=== PATIENT | male | born 1970 | race Caucasian/White ===

== ENCOUNTER 2021-03-05 12:06 | Outpatient (CLI) | payer BC, SELFPAY ==
[2021-03-05 15:19] LABS: Alanine Aminotransferase 35 U/L (4-50); Albumin Level 4.1 g/dL (3.5-5.1); Alkaline Phosphatase 110 U/L (38-126); Anion Gap 10 mmol/L (8-16); Aspartate Amino Transferase 38 U/L (17-59); Bilirubin,Total 0.6 mg/dL (0.2-1.3); Blood Urea Nitrogen 16 mg/dL (9-20); Calcium 9.4 mg/dL (8.4-10.2); Carbon Dioxide 22 mmol/L (22-30); Chloride 106 mmol/L (98-107); Cholesterol 123 mg/dL (0-200); Creatine Kinase 72 U/L (55-170); Estimated Glomerular Filt Rate > 60; Glucose 104 mg/dL (65-110); HDL Direct 37 mg/dL; Potassium 3.8 mmol/L (3.4-5.0); Sodium 138 mmol/L (137-145); Triglycerides 98 mg/dL (<150)
[2021-03-05 15:30] LABS: LDL Cholesterol Direct 61 mg/dL
== END 2021-03-05 12:07 | disposition home or self-care (01) ==
LOC: ANHLAB 12:13
PROVIDERS: PCP Internal Medicine; Visit Provider Internal Medicine
DX: E78.2 Mixed hyperlipidemia (principal)
CPT/HCPCS: 36415; 80053; 80061; 82550

== ENCOUNTER 2021-10-04 15:33 | Outpatient (CLI) | payer BC, SELFPAY ==
[2021-10-04 16:19] LABS: Hematocrit 40.3 % (42.0-52.0); Hemoglobin 13.3 g/dL (14.0-18.0); Mean Corpuscular Hemoglobin 28.9 pg (26-34); Mean Corpuscular Volume 87.4 fl (80-100); Mean Platelet Volume 9.5 fl (7.4-10.4); Platelet Count Result 315 k/mm3 (150-375); Red Blood Count 4.61 M/mm3 (4.6-6.20); White Blood Count 9.3 K/mm3 (4.5-10.0)
[2021-10-04 16:26] LABS: Prothrombin Time 12.9 Seconds (11.1-14.7)
[2021-10-04 16:27] LABS: Partial Thromboplastin Time 24.7 SECONDS (22.3-36.8)
[2021-10-04 16:41] LABS: Alanine Aminotransferase 35 U/L (4-50); Albumin Level 4.1 g/dL (3.5-5.1); Alkaline Phosphatase 107 U/L (38-126); Anion Gap 6 mmol/L (8-16); Aspartate Amino Transferase 35 U/L (17-59); Bilirubin,Total 0.4 mg/dL (0.2-1.3); Blood Urea Nitrogen 19 mg/dL (9-20); Calcium 9.4 mg/dL (8.4-10.2); Carbon Dioxide 25 mmol/L (22-30); Chloride 110 mmol/L (98-107); Estimated Glomerular Filt Rate > 60; Glucose 98 mg/dL (65-110); Potassium 4.2 mmol/L (3.4-5.0); Sodium 141 mmol/L (137-145)
[2021-10-04 17:06] LABS: Prostate Specific Antigen 0.7 ng/mL (< OR = 4.0)
== END 2021-10-04 15:34 | disposition home or self-care (01) ==
PROVIDERS: PCP Internal Medicine; Visit Provider Internal Medicine
DX: R31.9 Hematuria, unspecified (principal)
CPT/HCPCS: 36415; 80053; 84153; 85027; 85610; 85730; 87086

== ENCOUNTER 2021-10-28 11:54 | Outpatient (CLI) | payer BC, SELFPAY ==
--- NOTE | ~2021-10-28 | CT_ITS ---
EXAMINATION: CT abdomen pelvis wo/w con DATE: 10/28/2021 13:36 INDICATION: Abdomen pain TECHNIQUE: Computed tomography (CT) of the abdomen and pelvis was performed with and without 130 cc O mnipaque 350 intravenous contrast. The dose-length product was 3109.87 mGy-cm. Automated exposure con trol and iterative reconstruction technique were employed. COMPARISON: None. FINDINGS: Lung bases are unremarkable. Heart size normal. No significant pleural or pericardial effus ion. There is a fat-containing umbilical hernia. Fatty infiltration of the liver. The spleen, pancreas, adrenal glands and kidneys are unremarkable. G allbladder is present. Normal appendix. There is a 3 cm right renal cyst. No free air or free fluid. Mild lumbar spondylosis. IMPRESSION: 1. No findings to account for patient's symptoms. 2: Fat-containing umbilical hernia. 3: Hepatic steatosis. Reviewed, dictated and finalized at location B.
== END 2021-10-28 11:55 | disposition home or self-care (01) ==
LOC: ANHIMG 11:57
PROVIDERS: PCP Internal Medicine; Visit Provider Internal Medicine
DX: R31.9 Hematuria, unspecified (principal); K76.0 Fatty (change of) liver, not elsewhere classified; K42.9 Umbilical hernia without obstruction or gangrene
CPT/HCPCS: 74178; Q9967

== ENCOUNTER 2022-06-13 10:05 | Outpatient (CLI) | payer BC, SELFPAY ==
--- NOTE | 2022-06-13 15:45 | WPDPFTINT ---
PFT Procedure Performed PFT Procedure Performed Spirometry with Pre/Post Bronchodilator Plethysmography (Lung Vol) Diffusing Cap (DLCO) Flow Vol Loop PFT Interpretation This is a pulmonary function test with pre and post-bronchodilator spirometry, plethysmography and diffusing capacity. The test was performed and results interpreted in accordance with the 2019 and 2005 ATS/ERS Task Force guidelines respectively using the Global Lung Function Initiative-2012 reference equations. Patient demonstrated good effort and cooperation. Reproducibility criteria were met. The quality of the pre bronchodilator spirometry maneuver was Grade A and post bronchodilator spirometry maneuver was Grade A. Findings: Spirometry: The contour the inspiratory and expiratory flow tracing are normal. The pre bronchodilator FVC is 4.28 L, 98% predicted. The pre bronchodilator FEV1 is 3.40 L, 107% predicted. The pre bronchodilator FEV1: FVC ratio 79%. The post bronchodilator FVC is 4.48 L, representing a 5% increase. The post bronchodilator FEV1 is 3.50 L, representing a 3% increase. The post bronchodilator FEV1: FVC ratio 78%. Plethysmography: The total lung capacity 7.78 L, 99% predicted. The functional residual capacity is 4.36 L, 101% predicted. The residual volume is 3.50 L, 120% predicted. Diffusion capacity: The diffusing capacity unadjusted for hemoglobin and carboxyhemoglobin is 22.6, 90% predicted. The diffusing capacity adjusted for alveolar volume is 4.05, 121% predicted. Impression: The spirometry is normal without evidence of an obstructive abnormality. There is no significant improvement after inhaling a single dose of albuterol. The lung volumes are normal. The diffusing capacity is normal. There are no prior studies for comparison
== END 2022-06-13 10:06 | disposition home or self-care (01) ==
LOC: ANHPFT 10:07
PROVIDERS: PCP Internal Medicine; Visit Provider Physician Assistant
DX: R06.09 Other forms of dyspnea (principal)
CPT/HCPCS: 94060; 94726; 94729

== ENCOUNTER 2022-06-13 11:07 | Outpatient (CLI) | payer BC, SELFPAY ==
[2022-06-13 12:19] LABS: Alanine Aminotransferase 45 U/L (6-50); Albumin Level 4.2 g/dL (3.5-5.1); Alkaline Phosphatase 91 U/L (38-126); Anion Gap 14 mmol/L (8-16); Aspartate Amino Transferase 40 U/L (17-59); Bilirubin,Total 0.5 mg/dL (0.2-1.3); Blood Urea Nitrogen 18 mg/dL (9-20); Calcium 8.6 mg/dL (8.4-10.2); Carbon Dioxide 25 mmol/L (22-30); Chloride 102 mmol/L (98-107); Cholesterol 114 mg/dL (0-200); Creatine Kinase 74 U/L (55-170); Estimated Glomerular Filt Rate > 60; Glucose 124 mg/dL (65-110); HDL Direct 34 mg/dL; Potassium 4.3 mmol/L (3.4-5.0); Sodium 141 mmol/L (137-145); Triglycerides 122 mg/dL (<150)
[2022-06-13 12:29] LABS: LDL Cholesterol Direct 59 mg/dL
== END 2022-06-13 11:08 | disposition home or self-care (01) ==
PROVIDERS: PCP Internal Medicine; Visit Provider Specialist
DX: I10 Essential (primary) hypertension (principal); E66.9 Obesity, unspecified
CPT/HCPCS: 36415; 80053; 80061; 82550

== ENCOUNTER 2022-09-27 08:01 | Outpatient (CLI) | payer BC, SELFPAY ==
[2022-09-27 08:39] LABS: Hematocrit 38.7 % (42.0-52.0); Hemoglobin 12.6 g/dL (14.0-18.0); Mean Corpuscular HGB Conc 32.6 g/dl (32-36); Mean Corpuscular Hemoglobin 27.9 pg (26-34); Mean Corpuscular Volume 85.6 fl (80-100); Mean Platelet Volume 9.2 fl (7.4-10.4); Platelet Count Result 322 k/mm3 (150-375); Red Blood Count 4.52 M/mm3 (4.6-6.20); Red Cell Distribution Width 14.4 % (11.5-14.5); White Blood Count 8.4 K/mm3 (4.5-10.0)
[2022-09-27 08:40] LABS: Appearance Urine Clear (Clear); Bilirubin Urine Negative (Negative); Blood Urine Negative (Negative); Color Urine Yellow (Yellow); Glucose Urine UA Negative (Negative); Ketones Urine Negative (Negative); Leukocyte Esterase Ur Negative LEU/UL (NEGATIVE); Nitrate Urine Negative (Negative); Protein Urine Negative (Negative); Specific Grav Ur >= 1.030 (1.001-1.035); Urobilinogen Urine 0.2 mg/dL (<2.0); pH Urine 5.5 (5.0-9.0)
[2022-09-27 08:43] LABS: Mucus Urine Rare /lpf; RBC Urine 0-2 /hpf (0-2); Squamous Epithelial Cell Urine Rare /hpf (Few); WBC Urine 0-3 /hpf (0-3)
[2022-09-27 08:54] LABS: Add Urine Microscopic? YES
[2022-09-27 09:26] LABS: Hemoglobin A1C 6.1 % (<5.7)
[2022-09-27 10:27] LABS: Alanine Aminotransferase 40 U/L (6-50); Albumin Level 4.3 g/dL (3.5-5.1); Alkaline Phosphatase 115 U/L (38-126); Anion Gap 9 mmol/L (8-16); Aspartate Amino Transferase 42 U/L (17-59); Bilirubin,Total 0.5 mg/dL (0.2-1.3); Blood Urea Nitrogen 19 mg/dL (9-20); Calcium 8.8 mg/dL (8.4-10.2); Carbon Dioxide 25 mmol/L (22-30); Chloride 107 mmol/L (98-107); Estimated Glomerular Filt Rate > 60; Glucose 121 mg/dL (65-110); Potassium 3.9 mmol/L (3.4-5.0); Sodium 141 mmol/L (137-145)
[2022-09-27 11:01] LABS: Prostate Specific Antigen 0.3 ng/mL (< OR = 4.0)
== END 2022-09-27 08:02 | disposition home or self-care (01) ==
LOC: ANHLAB 08:05
PROVIDERS: PCP Internal Medicine; Visit Provider Internal Medicine
DX: R73.01 Impaired fasting glucose (principal); I10 Essential (primary) hypertension; Z12.5 Encounter for screening for malignant neoplasm of prostate
CPT/HCPCS: 36415; 80053; 81001; 83036; 84153; 85027; G0103

== ENCOUNTER 2022-10-06 10:38 | Outpatient (CLI) | payer BC, SELFPAY ==
[2022-10-06 11:25] LABS: Immature Reticulocyte Fraction 18.9 % (3.0-15.9); Reticulocyte Hemoglobin Conten 31.5 pg (28.2-35.7); Reticulocyte Percent 2.59 % (0.7-4.3); Reticulocytes Absolute 0.12 B/L (32.2-175.7)
[2022-10-06 11:27] LABS: Lactate Dehydrogenase 193 U/L (120-246)
[2022-10-06 11:34] LABS: Iron 83 ug/dL (49-181)
[2022-10-06 11:45] LABS: Percent Iron Saturation 20 % (20-50)
[2022-10-08 12:37] LABS: Red Blood Cell Folate 567 ng/mL RBC (>280)
[2022-10-09 08:09] LABS: Methylmalonic Acid 140 nmol/L (87-318)
== END 2022-10-06 10:39 | disposition home or self-care (01) ==
LOC: ANHLAB 10:40
PROVIDERS: PCP Internal Medicine; Visit Provider Internal Medicine
DX: D64.9 Anemia, unspecified (principal)
CPT/HCPCS: 36415; 82728; 82747; 83540; 83550; 83615; 83921; 85046

== ENCOUNTER 2022-11-15 10:46 | Outpatient (CLI) | payer BC, SELFPAY ==
[2022-11-15 11:44] LABS: Hematocrit 38.4 % (42.0-52.0); Hemoglobin 12.4 g/dL (14.0-18.0); Mean Corpuscular HGB Conc 32.3 g/dl (32-36); Mean Corpuscular Hemoglobin 28.2 pg (26-34); Mean Corpuscular Volume 87.3 fl (80-100); Mean Platelet Volume 9.1 fl (7.4-10.4); Platelet Count Result 283 k/mm3 (150-375); Red Cell Distribution Width 14.5 % (11.5-14.5); White Blood Count 6.8 K/mm3 (4.5-10.0)
== END 2022-11-15 10:47 | disposition home or self-care (01) ==
PROVIDERS: PCP Internal Medicine; Visit Provider Internal Medicine
DX: D64.9 Anemia, unspecified (principal)
CPT/HCPCS: 36415; 85027

== ENCOUNTER 2022-12-10 01:16 | Day surgery (SDC) | payer BC, SELFPAY ==
[2022-12-01 15:13] VITALS: BMI 47.5
--- NOTE | 2022-12-09 12:11 | WPDANESEPPF ---
Anes - Initial Pre Proc Eval Procedure: Operation Date: 12/10/22 09:00 Proposed Procedures p Screening Colonoscopy - Thanh Mondragon MD Date/Time: 12/09/22 12:11 Surgeon: Thanh Mondragon MD Pre Op Diagnosis: neoplasm screening Patient Data Age: 51 Gender: M Height: 1.88 m Weight: 168 kg Allergies Allergy/AdvReac Type Severity Reaction Status Date / Time No Known Allergies Allergy Verified 12/10/22 07:53 Home Medications Medication Instructions Recorded Confirmed Type albuterol sulfate 90 mcg/actuation 1 - 2 puff inhalation Q4-6H PRN 05/16/22 12/10/22 Rx aerosol inhaler shortness of breath or wheezing #8.5 grams aspirin 325 mg tablet 325 mg PO DAILY 05/16/22 12/10/22 History atorvastatin 20 mg tablet 20 mg PO DAILY 05/16/22 12/10/22 History diltiazem HCl 240 mg capsule,24 240 mg PO DAILY 05/16/22 12/10/22 History hr,extended release duloxetine 30 mg capsule,delayed 30 mg PO DAILY 05/16/22 12/10/22 History release famotidine 20 mg tablet 20 mg PO DAILY 05/16/22 12/10/22 History fenofibrate nanocrystallized 48 mg 48 mg PO DAILY 05/16/22 12/10/22 History tablet losartan 100 mg tablet 100 mg PO DAILY 05/16/22 12/10/22 History metoprolol tartrate 100 mg tablet 100 mg PO BID 05/16/22 12/10/22 History sildenafil 100 mg tablet 100 mg PO DAILY PRN (Drug) 05/16/22 12/10/22 History Ingestion Cymbalta 1 tab-cap PO HS 12/01/22 12/10/22 History Patient hx anesthesia problems: none Family hx anesthesia problems: none Results Review: All pre-operative results and documents have been reviewed as part of the pre-operative evaluation. PENDING SALE TO [facility] Past Medical History Medical History (Updated 12/09/22 @ 12:11 by Jac Quezada DO) Anxiety Coronary artery disease History of heart attack 2018 Hypertension Obstructive sleep apnea Paroxysmal atrial fibrillation Renal cyst, right Skin cancer Nasal BCC 2006 Family History Family History Father Diabetes mellitus Hypertension Depression Social History Social History Smoking packs per day: 1 Smoking cigarettes per day: 20.0 Years smoked: 30 Smoking pack-years: 30.00 Smoking status: Former smoker Smoking end date: 09/17/21 Alcohol intake: current Alcohol use details: rarely Substance use: never Substance use type: does not use Living arrangements: with family Spiritual care concerns: No Anes - Eval Final PreProcedure Day of Procedure 12/09/22 12:11 Patient weight: morbidly obese Heart: regular rate and rhythm Lungs: clear to auscultation Airway: Mallampati scale class II and special considerations poor dentition Neurological: alert and oriented Last oral intake: >/= 8 hours ASA classification: III Emergent: no Anesthetic plan: proceed Anesthesia type and monitoring: general GIVS and standard monitoring Results Review: All pre-operative results and documents have been reviewed as part of the pre-operative evaluation. Informed Consent: The patient's anesthetic plan and its attendant risks and benefits were discussed with the patient/family/POA. Questions were solicited and answers provided to the satisfaction of the patient/family/POA.
[2022-12-10 07:55] VITALS: BP 165/73; PULSE 64; RESP 20; TEMP 36.4; O2SAT 99; BMI 45.4
[2022-12-10] MEDS: LACTATED RINGERS 1,000 ML 150 ML IV CONT (08:03)
--- NOTE | 2022-12-10 08:35 | PM.HPGS ---
History of Present Illness History of Present Illness Consent: Risks, benefits, and alternatives have been discussed and questions answered. Patient agrees to proceed with procedure. Chief complaint: neoplasm screening Narrative: Jono Trevino is a 51 year old male here for first screening colonoscopy Review of Systems Constitutional: Constitutional: Denies headache(s) and Denies weakness Eyes: Eyes: Denies blurry vision ENT: Reports Normal hearing present, Denies headache(s) and Denies neck pain Cardiovascular: Cardiovascular: Denies chest pain and Denies dyspnea Respiratory: Respiratory: Denies dyspnea Gastrointestinal: Gastrointestinal: Reports no additional gastrointestinal complaints Genitourinary: Genitourinary: Denies dysuria Musculoskeletal: Musculoskeletal: Denies neck pain Integumentary/Breasts: Skin/Breast: Denies dry skin Neurologic: Reports Normal hearing present, Denies headache(s) and Denies weakness Psychiatric: Psychiatric: Denies anxiety Endocrine: Endocrine: Denies change in body appearance Hematologic/Lymphatic: Hematologic/Lymphatic: Denies easy bleeding Allergic/Immunologic: Allergic/Immunologic: Denies urticaria PMF Past Medical History Medical History (Updated 12/10/22 @ 08:36 by Thanh Mondragon MD) Anxiety Colon cancer screening Coronary artery disease History of heart attack 2018 Hypertension Obstructive sleep apnea Paroxysmal atrial fibrillation Renal cyst, right Skin cancer Nasal BCC 2006 Family History Family History Father Diabetes mellitus Hypertension Depression Social History Social History Smoking packs per day: 1 Smoking cigarettes per day: 20.0 Years smoked: 30 Smoking pack-years: 30.00 Smoking status: Former smoker Smoking end date: 09/17/21 Alcohol intake: current Alcohol use details: rarely Substance use: never Substance use type: does not use Living arrangements: with family Spiritual care concerns: No Meds Home Medications and Allergies Home Medications Medication Instructions Recorded Confirmed Type albuterol sulfate 90 mcg/actuation 1 - 2 puff inhalation Q4-6H PRN 05/16/22 12/10/22 Rx aerosol inhaler shortness of breath or wheezing #8.5 grams aspirin 325 mg tablet 325 mg PO DAILY 05/16/22 12/10/22 History atorvastatin 20 mg tablet 20 mg PO DAILY 05/16/22 12/10/22 History diltiazem HCl 240 mg capsule,24 240 mg PO DAILY 05/16/22 12/10/22 History hr,extended release duloxetine 30 mg capsule,delayed 30 mg PO DAILY 05/16/22 12/10/22 History release famotidine 20 mg tablet 20 mg PO DAILY 05/16/22 12/10/22 History fenofibrate nanocrystallized 48 mg 48 mg PO DAILY 05/16/22 12/10/22 History tablet losartan 100 mg tablet 100 mg PO DAILY 05/16/22 12/10/22 History metoprolol tartrate 100 mg tablet 100 mg PO BID 05/16/22 12/10/22 History sildenafil 100 mg tablet 100 mg PO DAILY PRN (Drug) 05/16/22 12/10/22 History Ingestion Cymbalta 1 tab-cap PO HS 12/01/22 12/10/22 History Allergies Allergy/AdvReac Type Severity Reaction Status Date / Time No Known Allergies Allergy Verified 12/10/22 07:53 Vital Signs Vital Signs - 24 hr 12/10/22 07:55 Temperature 97.5 F L Pulse Rate 64 Respiratory Rate 20 Blood Pressure 165/73 H Pulse Oximetry 99 Oxygen Delivery Room Air Exam Const: General: comfortable and no acute distress HENMT: Face/Nose/Sinus: Normal nares present Eyes: General: appearance normal, both eyes and all related structures Neck: Neck: no JVD Resp: Auscultation: clear to auscultation bilaterally Cardio: Rate: regular rate Rhythm: regular rhythm GI: Inspection: non-distended GI Palp: Yes Soft to palpation Skin: General skin exam: normal color Neuro: General: gait normal Speech: normal speech Extrem: General: normal to
[2022-12-10 08:51] VITALS: BP 127/81; PULSE 70; RESP 20; O2SAT 96
[2022-12-10 09:01] VITALS: BP 130/80; PULSE 54; RESP 18; O2SAT 98
[2022-12-10 09:11] VITALS: BP 142/87; PULSE 60; RESP 20; O2SAT 100
== END 2022-12-10 09:18 | disposition home or self-care (01) ==
PROVIDERS: PCP Internal Medicine; Visit Provider Internal Medicine Gastroenterology
PROC: 0DJD8ZZ Inspection of Lower Intestinal Tract, Via Natural or Artificial Opening Endoscopic (ICD-10-PCS; CPT 45378; principal; 2022-12-10 09:00)
DX: Z12.11 Encounter for screening for malignant neoplasm of colon (principal); K57.30 Diverticulosis of large intestine without perforation or abscess without bleeding; D12.3 Benign neoplasm of transverse colon; I25.10 Atherosclerotic heart disease of native coronary artery without angina pectoris; I25.2 Old myocardial infarction; I10 Essential (primary) hypertension; I48.0 Paroxysmal atrial fibrillation; G47.33 Obstructive sleep apnea (adult) (pediatric); F41.9 Anxiety disorder, unspecified; Z79.51 Long term (current) use of inhaled steroids; Z79.82 Long term (current) use of aspirin; Z87.891 Personal history of nicotine dependence; E66.01 Morbid (severe) obesity due to excess calories; Z68.42 Body mass index [BMI] 45.0-49.9, adult
CPT/HCPCS: 45385; 88305; J2704; J7120

== ENCOUNTER 2023-03-27 09:43 | Outpatient (CLI) | payer BC, SELFPAY ==
[2023-03-27 10:07] LABS: Hematocrit 39.4 % (42.0-52.0); Hemoglobin 12.7 g/dL (14.0-18.0); Mean Corpuscular HGB Conc 32.2 g/dl (32-36); Mean Corpuscular Hemoglobin 27.8 pg (26-34); Mean Corpuscular Volume 86.2 fl (80-100); Mean Platelet Volume 8.8 fl (7.4-10.4); Platelet Count Result 303 k/mm3 (150-375); Red Blood Count 4.57 M/mm3 (4.6-6.20); White Blood Count 8.4 K/mm3 (4.5-10.0)
[2023-03-27 10:19] LABS: Alanine Aminotransferase 45 U/L (6-50); Albumin Level 4.1 g/dL (3.5-5.1); Alkaline Phosphatase 97 U/L (38-126); Anion Gap 7 mmol/L (8-16); Aspartate Amino Transferase 42 U/L (17-59); Bilirubin,Total 0.5 mg/dL (0.2-1.3); Blood Urea Nitrogen 16 mg/dL (9-20); Calcium 8.9 mg/dL (8.4-10.2); Carbon Dioxide 21 mmol/L (22-30); Chloride 108 mmol/L (98-107); Estimated Glomerular Filt Rate > 60; Glucose 113 mg/dL (65-110); Potassium 4.6 mmol/L (3.4-5.0); Sodium 136 mmol/L (137-145)
[2023-03-27 12:03] LABS: Hemoglobin A1C 6.4 % (<5.7)
== END 2023-03-27 09:44 | disposition home or self-care (01) ==
LOC: ANHLAB 09:45
PROVIDERS: PCP Internal Medicine; Visit Provider Internal Medicine
DX: R73.03 Prediabetes (principal); D64.9 Anemia, unspecified; R63.5 Abnormal weight gain
CPT/HCPCS: 36415; 80053; 83036; 84443; 85027

== ENCOUNTER 2023-05-28 14:03 | Outpatient (CLI) | payer BC, SELFPAY ==
--- NOTE | ~2023-05-28 | XR_ITS ---
EXAMINATION: XR knee RT min 4V DATE: 05/28/2023 14:27 INDICATION: Right knee pain TECHNIQUE: Four views of the right knee were obtained. COMPARISON: None. FINDINGS: Alignment is normal. No fracture or osteochondral lesion. There is mild tricompartmental os teoarthritis characterized by tiny marginal osteophytes and mild joint space narrowing. No joint effu brian/synovitis. Soft tissues are unremarkable. IMPRESSION: 1. No acute osseous abnormality. Reviewed, dictated and finalized at location L.
--- NOTE | ~2023-05-28 | XR_ITS ---
EXAMINATION: XR knee LT min 4V DATE: 05/28/2023 14:27 INDICATION: Left knee pain TECHNIQUE: Four views of the left knee were obtained. COMPARISON: None. FINDINGS: Alignment is normal. No fracture or osteochondral lesion. There is tricompartmental osteoar thritis, severe in the medial compartment, moderate in the patellofemoral compartment, and mild in th e lateral compartment. No joint effusion/synovitis. Soft tissues are unremarkable. IMPRESSION: 1. Tricompartmental osteoarthritis. Reviewed, dictated and finalized at location L.
== END 2023-05-28 14:04 | disposition home or self-care (01) ==
PROVIDERS: PCP Internal Medicine; Visit Provider Internal Medicine
DX: M17.12 Unilateral primary osteoarthritis, left knee (principal); M25.562 Pain in left knee; M25.561 Pain in right knee
CPT/HCPCS: 73564

== ENCOUNTER 2023-06-16 09:06 | Outpatient (RCR) | payer BC, SELFPAY ==
--- NOTE | 2023-06-16 10:04 | OPREHPOC ---
Outpatient Therapy Plan of Care This is a Multidisciplinary Plan of Care that may contain components documented by all disciplines (PT, OT, and ST.) PT Problem 1 PT Problem #1 Knowledge Deficit PT Goal 1 Goal 1. independent and compliant with HEP Target Visit 4 PT Problem 2 PT Problem #2 Impaired Range of Motion PT Goal 1 Goal 1. improve active L knee extension to -5 degrees or less from 0 2. improve active L knee flexiont o 120 degrees or better Target Visit 8 PT Problem 3 PT Problem #3 Impaired Flexibility PT Goal 1 Goal 1. moderate or less hip flexor and quadriceps mm flexibility 2. 15 degrees or less bilat hamstrings tightness per the 90/90 test Target Visit 8 PT Problem 4 PT Problem #4 Impaired Functional Mobil PT Goal 1 Goal 1. LEFS to display 30% or less functional deficits 2. patient to ambulate 15 minutes or more without rest to begin weight loss program 3. patient to squat and lift 40lbs with safe mechanics and no pain 4. patient to kneel to floor on either LE and get up without assist and without pain Target Visit 8
--- NOTE | 2023-06-16 10:04 | PTOPEVAL1 ---
Assessment and note entered by JT File, PT Evaluation Information Assessment Status Evaluation Diagnosis L knee pain Onset 06/10/23 Subjective Information patient reports he has arthritis in the both knees , but the L is worse. he reports he had an injection to the L knee last week. he reports the L knee feels better since having the injection. he reports prior to the shot, he had difficulty with squatting, lifting anything heavy, walking, and kneeling down. 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 he reports he is laid off right now. he reports he has had xrays of the bilateral knees. he reports he does not recall any injury. Reported Pain Level Pain Score 0,2: Self Report Assessment PT Clinical Summary mr. chow is a 52 yo man who presents to skilled PT services for evaluation and treatment of L knee pain. he presents with signs and symptoms of OA of the L knee. he displays decreased rom, decreased strength, pain, and limited functional performance kneeling/walking/squatting. he would benefit from continued skilled PT to improve his objective/functional deficits to return to pain free functional activities to improve his quality of life. Plan of Care Interventions Electrical Stimulation,Gait Training,Hot Pack/Cold Pack,Manual Therapy,Neuro Re-education,Patient/ Caregiver Educati,Therapeutic Activities, Therapeutic Exercise PT Services Indicated Yes Treatment Frequency and 2x weekly for 8 visits Duration These treatments will address the objective and functional deficits as defined above. The patient will be advanced safely and appropriately in order for the patient to progress towards his/her prior level of function. Additional exercises will be introduced and as well as a comprehensive home exercise program upon discharge, if needed, ?to ensure carryover of functional gains achieved in the clinic. This treatment plan has been reviewed and agreement upon by the patient.
--- NOTE | 2023-07-14 09:06 | OPREHPOC ---
Outpatient Therapy Plan of Care This is a Multidisciplinary Plan of Care that may contain components documented by all disciplines (PT, OT, and ST.) PT Problem 1 PT Problem #1 Knowledge Deficit PT Goal 1 Goal 1. independent and compliant with HEP Target Visit 4 Progress Met PT Problem 2 PT Problem #2 Impaired Range of Motion PT Goal 1 Goal 1. improve active L knee extension to -5 degrees or less from 0. not met 2. improve active L knee flexiont o 120 degrees or better. met Target Visit 8 Progress Partially Met PT Problem 3 PT Problem #3 Impaired Flexibility PT Goal 1 Goal 1. moderate or less hip flexor and quadriceps mm flexibility. not met 2. 15 degrees or less bilat hamstrings tightness per the 90/90 test. met Target Visit 8 Progress Partially Met PT Problem 4 PT Problem #4 Impaired Functional Mobil PT Goal 1 Goal 1. LEFS to display 30% or less functional deficits . met 2. patient to ambulate 15 minutes or more without rest to begin weight loss program. not met 3. patient to squat and lift 40lbs with safe mechanics and no pain. met 4. patient to kneel to floor on either LE and get up without assist and without pain. met Target Visit 8 Progress Partially Met
--- NOTE | 2023-07-14 09:07 | PTOPDC ---
Assessment and note entered by JT File, PT Evaluation Information Assessment Status Discharge Diagnosis L knee pain Onset 06/10/23 Subjective Information patient reports he has no pain in the L knee. he reports he is still limited in walking distance due to the knee, but overall thinks he is ready to end therapy today. he reports he is going to have surgery on his bilateral arms due to carpal and cubital tunnel. Reported Pain Level Pain Score 0: Self Report Assessment PT Clinical Summary mr. chow presents to skilled PT for his 6th skilled PT visit. he presents with no pain in the L knee, improved L knee flexion, normal L knee strength, and improved kneeling and lifting functional ability. he has met or made partial achievement of all goals for skilled PT this date. he does continue to lack for for L knee extension rom, ambulation time, and quad/hip flexor length. he will DC skilled PT today, and continue with HEP independent at home. Plan of Care PT Services Indicated Yes
== END 2023-07-14 12:16 | disposition home or self-care (01) ==
LOC: CHSPT 09:06
PROVIDERS: PCP Internal Medicine; Visit Provider Internal Medicine
DX: M25.562 Pain in left knee (principal); M17.12 Unilateral primary osteoarthritis, left knee
CPT/HCPCS: 97110; 97161; 97530

== ENCOUNTER 2023-08-05 00:13 | Day surgery (SDC) | payer BC, SELFPAY ==
[2023-07-30 15:02] VITALS: BMI 49.1
--- NOTE | 2023-07-30 15:17 | PC.NURSE ---
Addendum entered by Loretta Guerrero RN 07/31/23 11:02: Left message for pt regarding NPO status requested for 8 hours prior to procedure. Original Note: Report to the Outpatient Waiting Room, entrance under the green pavilion located off [facility], at 0645 on 08/05/23. Planned Procedure Time: 0845. Time changes happen often and if your time is changed the preop area will call you the afternoon before. - You and your visitor will be asked to self-screen and do not enter if you have any COVID symptoms. - A mask is optional within the hospital at this time. Patients may have clear liquids (water, carbonated beverages, clear teas, apple juice) until 3 hours prior to surgery with a maximum of 20 ounces. - No food from midnight until time of surgery Take the following medications with a SIP of water the morning of surgery: Metoprolol Call Drs. Harrell and cooker cleaner re: ASA DO NOT STOP ANY OF YOUR OTHER PRESCRIPTION MEDICATIONS PRIOR TO SURGERY ?EXCEPT THE FOLLOWING Medications to discontinue per physician N/A Date to take last dose N/A Please no make-up, nail kazakh, hairspray, perfume, deodorant, or body powder the day of surgery. No jewelry (including any body piercings) or valuables the day of surgery, leave them at home. Please take a shower or bath the night before, or the morning of, surgery with an antibacterial soap. Wear comfortable, loose fitting clothing. - Jewelry must be removed prior to entering the operating room. Rings and piercings that are not removed may be cut off. - The hospital will not accept responsibility for valuables. - Please leave all valuables, including medications, at home the day of surgery. If you are going home after surgery, a licensed lifter/driver must drive you home. - NO public transportation without another adult if you receive anesthesia. - We recommend that an adult stay with you for 24 hours following discharge. - We also recommend that you do not drive, make important decision, drink alcoholic beverages, or take any drugs that were not prescribed by your health care provider for at least 24 hours after your discharge time. Follow any additional instructions given to you from your surgeon. If you or anyone in your household have experienced Covid symptoms in the past week, please notify your surgeon or the nurse liaison at the phone number below for possible testing. Telephone instructions given to patient and asked if any additional questions and then verbalized understanding. Patient advised to call surgeon office or pre surgery nurse liaison [phone] if any additional questions.
[2023-08-05] VITALS (7 sets, daily range): BP systolic 102–152; BP diastolic 62–90; PULSE 66–83; RESP 18–22; TEMP 36–36.4; O2SAT 94–99; BMI 49.1
--- NOTE | 2023-08-05 06:57 | P.OP_ITS ---
Procedure Note - Detailed Date of Procedure 08/05/23 Pre-op Diagnosis left carpal and cubital tunnel syndrome Post-op Diagnosis Same Procedure Performed left ectr and CuTR Surgeon Phoenix Harrell MD Senior Product Analyst shari genao pa-c Anesthesia MAC Description of Procedure INFORMED CONSENT: The patient was seen and examined and marked in the pre-op area.? The patient signed the consent form. PROCEDURE IN DETAIL:The patient taken back to OR on the stretcher in supine position. Time out performed with anesthesia, surgeon and staff agreeing on patient's name site and surgery to be performed SCDs were placed on the lower extremities and inflated. A tourniquet was placed on {left} upper extremity and antibiotics given IV After anesthesia administered sedation I injected {10}cc 1%lido with epi and 0.5% marcaine plain at the operative sites The?{left upper extremity}?was prepped and draped in sterile fashion the??{left upper extremity} was? exsanguinated with Esmarch bandage and tourniquet inflated to 250mmHg I made a transverse incision in the {left} volar distal wrist crease through skin and dermis with 15 blade scalpel.? Littler scissors spread down to antebrachial fascia. A small incision was made in antebrachial fascia allowing access to Carpal tunnel. I proceeded with sequential dilation staying in line with the ring finger and hugging the hook of the hamate.? I then used the synovial elevator to free any adhesions from the underside of the transverse carpal ligament. Next I was able to insert the Microaire endoscopic carpal tunnel device with direct visualization of the transverse fibers on the monitor and proceeded with complete segmental retrograde release of the ligament in its entirety.? I irrigated with normal saline and closed with 4-0 monocryl for dermis and subcuticular closure. I next proceeded with making a longitudinal incision between two heads for flexor carpi ulnaris at end of {left} cubital tunnel with 15 blade scalpel.? Littler scissors were used to spread down to FCU fascia.? An incision was made in FCU fascia and ulnar nerve identified exiting cubital tunnel.? I proceeded with complete retrograde release of the cubital tunnel including 7cm proximal for the intermuscular septum.? The nerve appeared healthy with visible vaso nervorum.? There was no subluxation on full elbow range of motion. ? I irrigated with normal saline and closure with 4-0 monocryl for dermis and subcuticular. A dressing of Dermabond, 4x4, judith, and a volar splint wrist and posterior elbow splint was applied for patient safety, security, and comfort and secured with an becki bandage after the tourniquet was let down noting the hand was warm and well perfused. The patient was then awaken from anesthesia and transferred to the recovery room in stable condition.? Complications - none EBL- 0cc Disposition - home in stable conditions Shari Genao PA-C was essential for positioning, retraction, closure and dressing placement [facility] Billing Surgery - Charge Forward: Surgery Billing ([id number], [id number] same codes for shari with modifier )
--- NOTE | 2023-08-05 06:57 | WPDHPUPDATE1 ---
History and Physical Update Update Date/Time: 08/05/23 06:57 Patient seen and examined in pre-operative holding area. No interval change in medical history or symptoms. Patient recalls previous discussion of benefits and alternatives to procedure. Continues to desire to proceed with left ectr poss open and left cubital tunnel release. Reviewed procedure, post-op expectations and risks including but not limited to bleeding, infection, injury to tendon/nerve/vessel, decreased hand function, stiffness, RSD, no change or worsening of symptoms. I discussed the possible use of assistants and their participation in the case. Patient stated understanding and signed the consent form wishing to proceed.
[2023-08-05] MEDS: LACTATED RINGERS 1,000 ML 30 ML IV CONT ×2 (07:23→08:53)
--- NOTE | 2023-08-05 07:44 | WPDANESEPPF ---
Anes - Initial Pre Proc Eval Procedure: Operation Date: 08/05/23 08:45 Proposed Procedures p Left Endoscopic Possible Open Carpal Tunnel Release, Left Cubital Tunnel Release, - Phoenix Harrell MD Date/Time: 08/05/23 07:44 Surgeon: Phoenix Harrell MD Pre Op Diagnosis: bilateral carpal tunnel syndrome Patient Data Age: 52 Gender: M Height: 1.88 m Weight: 173.4 kg Last Vital Signs Temp 36.0 C L 08/05/23 07:18 Pulse 83 08/05/23 07:18 Resp 22 H 08/05/23 07:18 BP 133/62 08/05/23 07:18 Pulse Ox 97 08/05/23 07:18 Allergies Allergy/AdvReac Type Severity Reaction Status Date / Time No Known Allergies Allergy Verified 08/05/23 07:03 Home Medications Medication Instructions Recorded Confirmed Type aspirin 325 mg tablet 325 mg PO DAILY 05/16/22 08/05/23 History atorvastatin 20 mg tablet 20 mg PO DAILY 05/16/22 08/05/23 History diltiazem HCl 240 mg capsule,24 240 mg PO HS 05/16/22 08/05/23 History hr,extended release duloxetine 30 mg capsule,delayed 30 mg PO HS 05/16/22 08/05/23 History release famotidine 20 mg tablet 20 mg PO BID 05/16/22 08/05/23 History fenofibrate nanocrystallized 48 mg 48 mg PO DAILY 05/16/22 08/05/23 History tablet losartan 100 mg tablet 100 mg PO DAILY 05/16/22 08/05/23 History metoprolol tartrate 100 mg tablet 100 mg PO BID 05/16/22 08/05/23 History Cymbalta 1 tab-cap PO HS 12/01/22 08/05/23 History Patient hx anesthesia problems: none Family hx anesthesia problems: none Results Review: All pre-operative results and documents have been reviewed as part of the pre-operative evaluation. FORMERLY [facility] Past Medical History Medical History Anxiety Colon cancer screening Coronary artery disease History of heart attack 2017 Hypertension Obstructive sleep apnea Paroxysmal atrial fibrillation Renal cyst, right Skin cancer Nasal BCC 2005 Surgical History Surgical History H/O colonoscopy Family History Family History Father Diabetes mellitus Hypertension Depression Social History Social History Smoking packs per day: 2 Smoking cigarettes per day: 40.0 Years smoked: 30 Smoking pack-years: 60.00 Smoking status: Former smoker Smoking end date: 10/28/21 Alcohol intake: current Drinks per week: 6 Alcohol use details: rarely Substance use: never Substance use type: does not use Living arrangements: with family Spiritual care concerns: No Anes - Eval Final PreProcedure Day of Procedure 08/05/23 07:44 Patient weight: morbidly obese Heart: regular rate and rhythm Lungs: clear to auscultation Airway: Mallampati scale class II and special considerations poor dentition Neurological: alert and oriented Last oral intake: >/= 8 hours ASA classification: III Emergent: no Anesthetic plan: proceed Anesthesia type and monitoring: general GIVS and standard monitoring Results Review: All pre-operative results and documents have been reviewed as part of the pre-operative evaluation. Informed Consent: The patient's anesthetic plan and its attendant risks and benefits were discussed with the patient/family/POA. Questions were solicited and answers provided to the satisfaction of the patient/family/POA.
[2023-08-05] MEDS: ceFAZolin 3 GM/D5W 100 ML 100 ML IVPB (08:11)
[2023-08-05] MEDS: LIDO 1%/EPINEPHRINE 1:100,000 20 ML VIAL 5 ML INFILTRATE (08:32)
[2023-08-05] MEDS: BUPivacaine HCL 0.5% PF 30 ML VIAL INFILTRATE (08:33)
--- NOTE | 2023-08-05 09:16 | SUR.PHASEI ---
0915: Simple mask removed.
== END 2023-08-05 10:15 | disposition home or self-care (01) ==
PROVIDERS: PCP Internal Medicine; Visit Provider Plastic Surgery
PROC: 01N54ZZ Release Median Nerve, Percutaneous Endoscopic Approach (ICD-10-PCS; CPT 29848; principal; 2023-08-05 08:45)
DX: G56.02 Carpal tunnel syndrome, left upper limb (principal); G56.22 Lesion of ulnar nerve, left upper limb; I10 Essential (primary) hypertension; I48.0 Paroxysmal atrial fibrillation; G47.33 Obstructive sleep apnea (adult) (pediatric); I25.2 Old myocardial infarction; I25.10 Atherosclerotic heart disease of native coronary artery without angina pectoris; F41.9 Anxiety disorder, unspecified; Z79.82 Long term (current) use of aspirin; Z87.891 Personal history of nicotine dependence; E66.01 Morbid (severe) obesity due to excess calories; Z68.42 Body mass index [BMI] 45.0-49.9, adult
CPT/HCPCS: 29848; 64718; J0690; J1100; J2250; J2371; J2405; J2704; J3010; J7120

== ENCOUNTER 2023-09-16 00:15 | Day surgery (SDC) | payer BC, SELFPAY ==
[2023-09-03 12:45] VITALS: BMI 48.6
--- NOTE | 2023-09-03 12:51 | PC.NURSE ---
Report to the Outpatient Waiting Room, entrance under the green pavilion located off [facility], at time 09:00am on date 09-16-23. Planned Procedure Time: 11:00am. Time changes happen often and if your time is changed the preop area will call you the afternoon before. - You and your visitor will be asked to self-screen and do not enter if you have any COVID symptoms. - A mask is optional within the hospital at this time. - No food or drink from midnight until time of surgery Take the following medications with a SIP of water the morning of surgery: METOPROLOL DO NOT STOP ANY OF YOUR OTHER PRESCRIPTION MEDICATIONS PRIOR TO SURGERY ?EXCEPT THE FOLLOWING Medications to discontinue per physician CONTACT OFFICE ABOUT ASPIRIN Please no make-up, nail costa rican, hairspray, perfume, deodorant, or body powder the day of surgery. No jewelry (including any body piercings) or valuables the day of surgery, leave them at home. Please take a shower or bath the night before, or the morning of, surgery with an antibacterial soap. Wear comfortable, loose fitting clothing. - Jewelry must be removed prior to entering the operating room. Rings and piercings that are not removed may be cut off. - The hospital will not accept responsibility for valuables. - Please leave all valuables, including medications, at home the day of surgery. If you are going home after surgery, a licensed pile driver engineer must drive you home. - NO public transportation without another adult if you receive anesthesia. - We recommend that an adult stay with you for 24 hours following discharge. - We also recommend that you do not drive, make important decision, drink alcoholic beverages, or take any drugs that were not prescribed by your health care provider for at least 24 hours after your discharge time. Follow any additional instructions given to you from your surgeon. If you or anyone in your household have experienced Covid symptoms in the past week, please notify your surgeon or the nurse liaison at the phone number below for possible testing. Telephone instructions given to PATIENT and asked if any additional questions and then verbalized understanding. Patient advised to call surgeon office or pre surgery nurse liaison [phone] if any additional questions.
--- NOTE | 2023-09-16 07:16 | WPDHPUPDATE1 ---
History and Physical Update Update Date/Time: 09/16/23 07:16 Patient seen and examined in pre-operative holding area. No interval change in medical history or symptoms. Patient recalls previous discussion of benefits and alternatives to procedure. Continues to desire to proceed with right endoscopic possible open carpal tunnel release and right cubital tunnel release. Reviewed procedure, post-op expectations and risks including but not limited to bleeding, infection, injury to tendon/nerve/vessel, decreased hand function, stiffness, RSD, no change or worsening of symptoms. I discussed the possible use of assistants and their participation in the case. Patient stated understanding and signed the consent form wishing to proceed.
--- NOTE | 2023-09-16 07:17 | W.PM.PROC2 ---
Procedure Note - Detailed Date of Procedure 09/16/23 Pre-op Diagnosis right carpal and cubital tunnel syndrome Post-op Diagnosis Same Procedure Performed right endosocpic carpal tunnel release and right cubital tunnel release Surgeon Phoenix Harrell MD Turbine Subassembler Shari Llanos PA-C Anesthesia MAC Description of Procedure INFORMED CONSENT:The patient was seen and examined and marked in the pre-op area.? The patient signed the consent form. PROCEDURE IN DETAIL: The patient taken back to OR on the stretcher in supine position. Time out performed with anesthesia, surgeon and staff agreeing on patient's name site and surgery to be performed SCDs were placed on the lower extremities and inflated A tourniquet was placed on {right} upper extremity and antibiotics given IV After anesthesia administered sedation I injected {10}cc 1%lido with epi and 0.5% marcaine plain at the operative sites The?{right upper extremity}?was prepped and draped in sterile fashion the??{right upper extremity} was??exsanguinated with Esmarch bandage and tourniquet inflated to 250mmHg I made a transverse incision in the {right} volar distal wrist crease through skin and dermis with 15 blade scalpel.? Littler scissors spread down to antebrachial fascia. A small incision was made in antebrachial fascia allowing access to Carpal tunnel. I proceeded with sequential dilation staying in line with the ring finger and hugging the hook of the hamate.? I then used the synovial elevator to free any adhesions from the underside of the transverse carpal ligament. Next I was able to insert the Microaire endoscopic carpal tunnel device with direct visualization of the transverse fibers on the monitor and proceeded with complete segmental retrograde release of the ligament in its entirety.? I irrigated with normal saline and closed with 4-0 monocryl for dermis and subcuticular closure. I next proceeded with making a longitudinal incision between two heads for flexor carpi ulnaris at end of {right} cubital tunnel with 15 blade scalpel.? Littler scissors were used to spread down to FCU fascia.? An incision was made in FCU fascia and ulnar nerve identified exiting cubital tunnel.? I proceeded with complete retrograde release of the cubital tunnel including 7cm proximal for the intermuscular septum.? The nerve appeared healthy with visible vaso nervorum.? There was no subluxation on full elbow range of motion. ? I irrigated with normal saline and closure with 4-0 monocryl for dermis and subcuticular. The incision was covered with Dermabond then 4x4s, judith, and a posterior elbow splint for patient safety, security and comfort and secured with becki bandages after the tourniquet was let down noting the hand was warm and well perfused.? Patient awaken from anesthesia and transferred to recovery in stable condition Complications - none EBL- 1cc Disposition - home in stable conditions Shari Llanos PA-C was essential for positioning, retraction, closure and dressing placement [facility] Billing Surgery - Charge Forward: Surgery Billing ([id number] and [id number] and [id number] same for shari with modifier except no billing [id number])
[2023-09-16 09:21] VITALS: BP 151/79; PULSE 74; RESP 20; TEMP 36.3; O2SAT 98
[2023-09-16] MEDS: LACTATED RINGERS 1,000 ML 30 ML IV CONT (09:21)
--- NOTE | 2023-09-16 10:23 | WPDANESEPPF ---
Anes - Initial Pre Proc Eval Procedure: Operation Date: 09/16/23 11:00 Proposed Procedures p Right Endoscopic Carpal Tunnel Release, Right Cubital Release, Possible Open - Phoenix Harrell MD Date/Time: 09/16/23 10:23 Surgeon: Phoenix Harrell MD Pre Op Diagnosis: Bilateral Carpal Tunnel Syndrome Patient Data Age: 52 Gender: M Height: 1.88 m Weight: 175.2 kg Last Vital Signs Temp 36.3 C L 09/16/23 09:21 Pulse 74 09/16/23 09:21 Resp 20 09/16/23 09:21 BP 151/79 H 09/16/23 09:21 Pulse Ox 98 09/16/23 09:21 O2 Del Method Room Air 09/16/23 09:21 Allergies Allergy/AdvReac Type Severity Reaction Status Date / Time No Known Allergies Allergy Verified 09/16/23 09:25 Home Medications Medication Instructions Recorded Confirmed Type aspirin 325 mg tablet 325 mg PO DAILY 05/16/22 09/03/23 History atorvastatin 20 mg tablet 20 mg PO DAILY 05/16/22 09/03/23 History diltiazem HCl 240 mg capsule,24 240 mg PO HS 05/16/22 09/03/23 History hr,extended release duloxetine 30 mg capsule,delayed 30 mg PO HS 05/16/22 09/03/23 History release famotidine 20 mg tablet 20 mg PO BID 05/16/22 09/03/23 History fenofibrate nanocrystallized 48 mg 48 mg PO DAILY 05/16/22 09/03/23 History tablet losartan 100 mg tablet 100 mg PO DAILY 05/16/22 09/03/23 History metoprolol tartrate 100 mg tablet 100 mg PO BID 05/16/22 09/03/23 History tramadol 50 mg tablet 50 mg PO Q6H PRN pain #8 tabs 09/16/23 Rx Patient hx anesthesia problems: none Family hx anesthesia problems: none Results Review: All pre-operative results and documents have been reviewed as part of the pre-operative evaluation. FORMERLY [facility] Past Medical History Medical History Anxiety Colon cancer screening Coronary artery disease History of heart attack 2017 Hypertension Obstructive sleep apnea Paroxysmal atrial fibrillation Renal cyst, right Skin cancer Nasal BCC 2006 Surgical History Surgical History H/O colonoscopy Family History Family History Father Diabetes mellitus Hypertension Depression Social History Social History Smoking packs per day: 2 Smoking cigarettes per day: 40.0 Years smoked: 30 Smoking pack-years: 60.00 Smoking status: Former smoker Second hand tobacco smoke exposure: No Smoking end date: 10/28/21 Alcohol intake: current Drinks per week: 6 Alcohol use details: rarely Substance use: never Substance use type: does not use Living arrangements: with family Spiritual care concerns: No Anes - Eval Final PreProcedure Day of Procedure 09/16/23 10:23 Patient weight: morbidly obese Heart: regular rate and rhythm Lungs: decreased breath sounds Airway: Mallampati scale class II Neurological: alert and oriented Last oral intake: >/= 8 hours ASA classification: III Emergent: no Anesthesia type and monitoring: general LMA and standard monitoring Results Review: All pre-operative results and documents have been reviewed as part of the pre-operative evaluation. Informed Consent: The patient's anesthetic plan and its attendant risks and benefits were discussed with the patient/family/POA. Questions were solicited and answers provided to the satisfaction of the patient/family/POA.
[2023-09-16] MEDS: ceFAZolin 3 GM/D5W 100 ML 100 ML IVPB (10:29)
[2023-09-16] MEDS: BUPivacaine HCL 0.5% PF 30 ML VIAL 15 ML INFILTRATE (10:43)
[2023-09-16] MEDS: LIDO 1%/EPINEPHRINE 1:100,000 50 ML VIAL 15 ML INFILTRATE (10:44)
[2023-09-16 11:12] VITALS: BP 136/71; PULSE 87; RESP 13; TEMP 36.1; O2SAT 97
[2023-09-16 11:25] VITALS: BP 126/99; PULSE 79; RESP 17; O2SAT 95
[2023-09-16 11:34] VITALS: BP 131/76; PULSE 75
[2023-09-16 12:00] VITALS: BP 138/80; PULSE 66
== END 2023-09-16 12:25 | disposition home or self-care (01) ==
PROVIDERS: PCP Internal Medicine; Visit Provider Plastic Surgery
PROC: 01N54ZZ Release Median Nerve, Percutaneous Endoscopic Approach (ICD-10-PCS; CPT 29848; principal; 2023-09-16 11:00)
DX: G56.01 Carpal tunnel syndrome, right upper limb (principal); G56.21 Lesion of ulnar nerve, right upper limb; I25.10 Atherosclerotic heart disease of native coronary artery without angina pectoris; I25.2 Old myocardial infarction; I10 Essential (primary) hypertension; I48.0 Paroxysmal atrial fibrillation; G47.33 Obstructive sleep apnea (adult) (pediatric); F41.9 Anxiety disorder, unspecified; Z87.891 Personal history of nicotine dependence; E66.01 Morbid (severe) obesity due to excess calories; Z68.42 Body mass index [BMI] 45.0-49.9, adult; Z79.82 Long term (current) use of aspirin
CPT/HCPCS: 29848; 64718; J0690; J2250; J2405; J2704; J3010; J7120

== ENCOUNTER 2024-07-19 08:55 | Emergency (ER) | payer BC, SELFPAY ==
[2024-07-19] VITALS (61 sets, daily range): BP systolic 97–132; BP diastolic 58–83; PULSE 72–108; RESP 12–32; TEMP 36.2–36.9; O2SAT 86–98
--- NOTE | ~2024-07-19 | CT_ITS ---
EXAMINATION: CTA chest PE protocol DATE: 07/19/2024 10:35 INDICATION: Shortness of breath. TECHNIQUE: Computed tomography angiography (CTA) of the chest was performed with 100 mL Omnipaque-350 intravenous contrast timed to evaluate the pulmonary arteries. Coronal maximum intensity projection 3D-reconstructions were created by the technologist. Automated exposure control and iterative reconst ruction technique were employed. The dose-length product was 1016.92 mGy-cm. COMPARISON: CT abdomen and pelvis 10/28/2021 FINDINGS: There is a small right pleural effusion with pleural thickening. There are scattered ground glass opacities and small airspace opacities in the lungs associated with septal thickening. Cardiome karli is noted. There are coronary artery calcifications. There are acute pulmonary emboli in all lobe s. There is mediastinal and bilateral hilar lymphadenopathy. For example, a right paratracheal node m easures 1.5 x 2.5 cm. There is mild thoracic spondylosis. There is mild chronic anterior wedging of m ultiple lower thoracic vertebral bodies. IMPRESSION: 1. Bilateral acute pulmonary emboli. No evidence of right heart strain. 2. Diffuse lung disease, consistent with pneumonia. 3. Small right pleural effusion with pleural thickening. 4. Mediastinal and bilateral hilar lymphadenopathy, likely reactive. Reviewed, dictated and finalized at location A. GREASER OPERATOR
--- NOTE | ~2024-07-19 | XR_ITS ---
XR chest 2V 07/19/2024 09:46 Indication: Shortness of breath Procedure: 2 view chest Comparison: 04/02/2017 Findings: Cardiomegaly. Bilateral airspace disease of the mid and lower lungs which may reflect edema or pneumonia. No significant effusion. No pneumothorax. Impression: 1: Bilateral airspace disease may represent edema or pneumonia. Reviewed, dictated and finalized at location B. CTOR INFORMATION SECURITY Impression: 1: Bilateral airspace disease may represent edema or pneumonia.
--- NOTE | 2024-07-19 08:56 | ECG_ITS ---
Test Date: 2024-07-19 09:07:17 Measurements Intervals [place] Rate: 73 P: 0 SD: 0 QRS: -39 QRSD: 117 T: -41 QT: 398 QTc: 441 Interpretive Statements ATRIAL FIBRILLATION WITH ABERRANT CONDUCTION OR VENTRICULAR PREMATURE COMPLEXES LEFT AXIS DEVIATION [QRS AXIS < -30] MODERATE INTRAVENTRICULAR CONDUCTION DELAY [110+ ms QRS DURATION] ST DEVIATION AND MODERATE T-WAVE ABNORMALITY, CONSIDER LATERAL ISCHEMIA [-0.1+ mV T-WAVE IN I/aVL/V5/V6] No previous ECG available for comparison Electronically Signed On 07-19-2024 14:58:32 CERTIFIED DENTAL ASSISTANT by Thanh Tapia M.D.
--- NOTE | 2024-07-19 08:59 | ED.SOB ---
HPI - SOB/Dyspnea General Chief Complaint: Shortness of Breath/Dyspnea Stated Complaint: SOB Time Seen by Provider: 07/19/24 08:58 Source: patient and family Mode of arrival: ambulatory Limitations: no limitations History of Present Illness HPI Narrative: Patient is a 53-year-old male with shortness of breath for the past 3 weeks. 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 No chest pain. He has a history of AFib without anticoagulation. shortness of breath is progressively getting worse. He has been fairly noncompliant with his home medications secondary to spreading out medicine as he needs refill. MD elicited complaint: shortness of breath Pertinent past history: other ( AFib without anticoagulation with) Onset (ago): week(s) (3) Context: other ( patient is short of breath on exertion and at rest for the past 3 weeks and progressively getting worse) Timing: constant Severity: severe Exacerbating factors: lying flat, exertion, movement and inspiration Relieving factors: nothing Known history of: other ( Hypertension and AFib) Associated symptoms: denies other symptoms Treatment prior to arrival: none Related Data Home oxygen amount: none Home Medications Medication Instructions Recorded Confirmed aspirin 325 mg tablet 325 mg PO DAILY 05/16/22 07/19/24 atorvastatin 20 mg tablet 20 mg PO DAILY 05/16/22 07/19/24 diltiazem HCl 240 mg capsule,24 240 mg PO HS 05/16/22 07/19/24 hr,extended release famotidine 20 mg tablet 20 mg PO BID 05/16/22 07/19/24 fenofibrate nanocrystallized 48 mg 48 mg PO DAILY 05/16/22 07/19/24 tablet losartan 100 mg tablet 100 mg PO DAILY 05/16/22 07/19/24 metoprolol tartrate 100 mg tablet 100 mg PO BID 05/16/22 07/19/24 Allergies Allergy/AdvReac Type Severity Reaction Status Date / Time No Known Allergies Allergy Verified 07/19/24 09:07 Review of Systems Review of Systems: All systems reviewed & are unremarkable except as noted in HPI and below Constitutional: Constitutional: Reports no additional constitutional complaints Eyes: Eyes: Reports no additional eye complaints ENT: Reports system reviewed and no additional complaints, except as documented Cardiovascular: Cardiovascular: Reports no additional cardiovascular complaints Respiratory: Respiratory: Reports no additional respiratory complaints Gastrointestinal: Gastrointestinal: Reports no additional gastrointestinal complaints Genitourinary: Genitourinary: Reports no additional male genitourinary complaints Musculoskeletal: Musculoskeletal: Reports no additional musculoskeletal complaints Integumentary/Breasts: Skin/Breast: Reports system reviewed and no additional complaints, except as docu Neurologic: Reports system reviewed and no additional complaints, except as documented Psychiatric: Psychiatric: Reports no additional psychiatric complaints Endocrine: Endocrine: Reports no additional endocrine complaints Hematologic/Lymphatic: Hematologic/Lymphatic: Reports no additional hematologic/lymphatic complaints Allergic/Immunologic: Allergic/Immunologic: Reports no additional allergic/immunologic complaints PMFSH Past Medical History Medical History Anxiety Colon cancer screening Coronary artery disease History of heart attack 2018 Hypertension Obstructive sleep apnea Paroxysmal atrial fibrillation Renal cyst, right Skin cancer Nasal BCC 2006 Surgical History Surgical History H/O colonoscopy Family History Family History Father Diabetes mellitus Hypertension Depression Social History Social History Smoking packs per day: 2 Smoking cigarettes per day: 40.0 Years smoked: 30 Smoking pack-years: 60.00 Smoking status: Former smoker Second hand tobacco smoke exposure: No Smoking end date: 10/28/21 Alcohol intake: current Drinks per week: 6 Alcohol use details: rarely Substance use: never Substance use type: does not use Living arrangements: with family Spiritual care concerns: No Exam Const: General: ill appearing Nutritional Appearance: well nourished Orientation/consciousness: patient oriented x3 Limitations: no limitations HENMT: Head: normal to inspection Ears: external ears normal Face/Nose/Sinus: Normal external nose present Eyes: Conjunctivae: conjunctivae normal Pupils: Equal, round and reactive pupils present EOM: EOMs intact bilaterally Neck: Neck: normal visual inspection Chest: Chest palpation & inspection: normal inspection of the chest Resp: Effort & Inspection: abnormal respiratory effort, labored, no retractions, tachypneic and no use of accessory muscles Auscultation: not clear to auscultation bilaterally, no crackles, no rales, no rhonchi, no wheezes, breath sounds present and diminished lung sounds diffuse Cardio: Rate: regular rate Rhythm: abnormal rhythm and abnormal rhythm Heart sounds: no murmurs GI: Inspection: non-distended GI Palp: Yes Soft to palpation, No Tenderness to palpation present (GI) and No Guarding due to palpation present (GI) Auscultation: normal bowel sounds : General: Yes bladder normal to palpation Back/Spine/Pelvis: Back: no CVA tenderness Skin: General skin exam: normal color Rashes: no rashes Wounds: no wounds Neuro: General: patient oriented x3 Cranial nerves: Yes Nystagmus not present Speech: normal speech Extrem: General: abnormal to inspection and edema ( 2+ pitting) bilateral Psych: Mental Status: mental status grossly normal Affect: normal affect Attitude: cooperative Course Vital Signs Vital signs: Vital Signs Temperature 36.2 C L 07/19/24 08:55 Pulse Rate 76 07/19/24 08:55 Respiratory Rate 28 H 07/19/24 08:55 Blood Pressure 124/66 07/19/24 08:55 Pulse Oximetry 86 L 07/19/24 08:55 Oxygen Delivery Room Air 07/19/24 08:55 Temperature 36.2 C L 07/19/24 08:55 Pulse Rate 78 07/19/24 10:46 Respiratory Rate 21 H 07/19/24 10:46 Blood Pressure 107/70 07/19/24 10:46 Pulse Oximetry 97 07/19/24 10:46 Oxygen Delivery Nasal Cannula 07/19/24 10:46 Oxygen Flow Rate 2 07/19/24 10:46 MDM - SOB/Dyspnea MDM Narrative Medical decision making narrative: patient is a 53-year-old male with progressively worse shortness of breath. We will do a respiratory workup at this time. He also meets SIRS criteria and we will look up the sepsis avenue as well. Patient has sepsis and IV fluids associated are contraindicated secondary to significant CHF and hypoxemia. during his workup and examination the sepsis fluids are contraindicated with his pneumonia, hypoxemia and CHF. Lab Data Attestation: I reviewed the patient's lab results. 07/19/24 09:37 07/19/24 09:37 Labs: Lab Results 07/19/24 07/19/24 07/19/24 Range/Units 09:37 09:38 10:06 WBC 10.0 (4.8-10.8) K/mm3 RBC 3.11 L (4.70-6.10) M/mm3 Hgb 8.3 L (14.0-18.0) g/dL Hct 27.2 L (40.0-54.0) % MCV 87.5 (78.0-102.0) fL MCH 26.7 L (27.0-31.0) pg MCHC 30.5 L (32-36) g/dL RDW 17.2 H (11.6-14.4) % Plt Count 429 H (150-420) K/mm3 MPV 9.1 (8.7-11.0) fl Immature Gran % (Auto) 0.7 H (0.0-0.0) % Neut % (Auto) 66.1 (50.0-70.0) % Lymph % (Auto) 22.5 (18.0-42.0) % [place] % (Auto) 7.4 (2.0-11.0) % Eos % (Auto) 2.1 (1.0-6.0) % Baso % (Auto) 1.2 H (0.0-1.0) % Lymph # (Auto) 2.25 (1.10-4.50) K/mm3 [place] # (Auto) 0.74 (0.10-0.90) K/mm3 Eos # (Auto) 0.21 (0.02-0.50) K/mm3 Baso # (Auto) 0.12 H (0.00-0.10) K/mm3 Abs Immat Gran (auto) 0.07 H (0.00-0.00) K/mm3 Absolute Neuts (auto) 6.62 (1.70-7.20) K/mm3 Absolute Nucleated RBC 0.00 (0.00-0.00) K/mm3 Nucleated RBC % 0.0 (0-0.0) % PT (9.50-12.1) Seconds INR APTT (23.9-30.70) Sec D-Dimer 2.81 H* (0.19-0.50) mg/L Sodium 136 (136-145) mmol/L Potassium 3.3 L (3.5-5.1) mmol/L Chloride 103 (98-108) mmol/L Carbon Dioxide 22 (21-32) mmol/L Anion Gap 11 (4-12) mmol/L BUN 14 (7-18) mg/dL Creatinine 1.04 (0.70-1.30) mg/dL Estim Creat Clear Calc 110 ml/min Estimated GFR > 60 (59 - ) Glucose 132 H (70-99) mg/dL Calculated Osmolality 284 L (285-295) mOsm/kg Lactic Acid 1.5 (0.4-2.0) mmol/L Calcium 9.0 (8.5-10.1) mg/dL Total Bilirubin 0.9 (0.00-1.00) mg/dL AST 13 L (15-37) U/L ALT 13 L (16-63) U/L Alkaline Phosphatase 107 (46-116) U/L Troponin I 5.9 (0.00-60.4) ng/L NT-Pro-B Natriuret Pep 3583 H (0-125) pg/mL Total Protein 7.8 (6.4-8.2) g/dL Albumin 2.7 L (3.4-5.0) g/dL Stool Occult Blood Negative (Negative) 07/19/24 Range/Units 10:57 WBC (4.8-10.8) K/mm3 RBC (4.70-6.10) M/mm3 Hgb (14.0-18.0) g/dL Hct (40.0-54.0) % MCV (78.0-102.0) fL MCH (27.0-31.0) pg MCHC (32-36) g/dL RDW (11.6-14.4) % Plt Count (150-420) K/mm3 MPV (8.7-11.0) fl Immature Gran % (Auto) (0.0-0.0) % Neut % (Auto) (50.0-70.0) % Lymph % (Auto) (18.0-42.0) % [place] % (Auto) (2.0-11.0) % Eos % (Auto) (1.0-6.0) % Baso % (Auto) (0.0-1.0) % Lymph # (Auto) (1.10-4.50) K/mm3 [place] # (Auto) (0.10-0.90) K/mm3 Eos # (Auto) (0.02-0.50) K/mm3 Baso # (Auto) (0.00-0.10) K/mm3 Abs Immat Gran (auto) (0.00-0.00) K/mm3 Absolute Neuts (auto) (1.70-7.20) K/mm3 Absolute Nucleated RBC (0.00-0.00) K/mm3 Nucleated RBC % (0-0.0) % PT 11.9 (9.50-12.1) Seconds INR 1.1 APTT 24.4 (23.9-30.70) Sec D-Dimer (0.19-0.50) mg/L Sodium (136-145) mmol/L Potassium (3.5-5.1) mmol/L Chloride (98-108) mmol/L Carbon Dioxide (21-32) mmol/L Anion Gap (4-12) mmol/L BUN (7-18) mg/dL Creatinine (0.70-1.30) mg/dL Estim Creat Clear Calc ml/min Estimated GFR (59 - ) Glucose (70-99) mg/dL Calculated Osmolality (285-295) mOsm/kg Lactic Acid (0.4-2.0) mmol/L Calcium (8.5-10.1) mg/dL Total Bilirubin (0.00-1.00) mg/dL AST (15-37) U/L ALT (16-63) U/L Alkaline Phosphatase (46-116) U/L Troponin I (0.00-60.4) ng/L NT-Pro-B Natriuret Pep (0-125) pg/mL Total Protein (6.4-8.2) g/dL Albumin (3.4-5.0) g/dL Stool Occult Blood (Negative) Imaging Data Attestation: I personally reviewed and interpreted this imaging study as follows: Radiologist's impression: chest x-ray is significant for bilateral pneumonia CTA of the chest shows IMPRESSION: 1. Bilateral acute pulmonary emboli. No evidence of right heart strain. 2. Diffuse lung disease, consistent with pneumonia. 3. Small right pleural effusion with pleural thickening. 4. Mediastinal and bilateral hilar lymphadenopathy, likely reactive. ECG Data EKG #1: Attestation: I personally reviewed and interpreted this ECG as follows: ECG completion date: 07/19/24 ECG completion time: 09:44 EKG Interpretation: normal rate, atrial fibrillation, no ectopy, non-specific ST changes, normal QRS, normal QT and left axis Discharge Plan Discharge Clinical Impression: Bilateral pulmonary embolism, Sepsis due to pneumonia, Hypoxia CHF (congestive heart failure) Qualifiers: Heart failure type: other Qualified Code(s): I50.9 - Heart failure, unspecified Anemia Qualifiers: Anemia type: other cause Other causes of anemia: other cause, not classified Qualified Code(s): D64.89 - Other specified anemias A-fib Qualifiers: Atrial fibrillation type: unspecified chronic Qualified Code(s): I48.20 - Chronic atrial fibrillation, unspecified Patient Disposition: Acute Care Hospital Condition: Serious Prescriptions: No Action diltiazem HCl 240 mg capsule,extended release 24 hr 240 mg PO HS metoprolol tartrate 100 mg tablet 100 mg PO BID losartan 100 mg tablet 100 mg PO DAILY atorvastatin 20 mg tablet 20 mg PO DAILY Patient Comments: at bedtime fenofibrate nanocrystallized 48 mg tablet 48 mg PO DAILY Patient Comments: morning aspirin 325 mg tablet 325 mg PO DAILY famotidine 20 mg tablet 20 mg PO BID Follow-up/Referrals: David Chance MD [Primary Care Provider] - Time of Disposition: 11:12
[2024-07-19 09:42] LABS: Basophils Absolute Auto 0.12 K/mm3 (0.00-0.10); Basophils Percent Auto 1.2 % (0.0-1.0); Eosinophils Absolute Auto 0.21 K/mm3 (0.02-0.50); Eosinophils Percent Auto 2.1 % (1.0-6.0); Hematocrit 27.2 % (40.0-54.0); Hemoglobin 8.3 g/dL (14.0-18.0); Immature Granulocyte Absolute 0.07 K/mm3 (0.00-0.00); Immature Granulocyte Percent A 0.7 % (0.0-0.0); Lymphocytes Absolute Auto 2.25 K/mm3 (1.10-4.50); Lymphocytes Percent Auto 22.5 % (18.0-42.0); Mean Corpuscular HGB Conc 30.5 g/dL (32-36); Mean Corpuscular Hemoglobin 26.7 pg (27.0-31.0); Mean Corpuscular Volume 87.5 fL (78.0-102.0); Mean Platelet Volume 9.1 fl (8.7-11.0); Monocytes Absolute Auto 0.74 K/mm3 (0.10-0.90); Monocytes Percent Auto 7.4 % (2.0-11.0); Neutrophils Absolute Auto 6.62 K/mm3 (1.70-7.20); Neutrophils Percent Auto 66.1 % (50.0-70.0); Platelet Count Result 429 K/mm3 (150-420); Red Blood Count 3.11 M/mm3 (4.70-6.10); Red Cell Distribution Width 17.2 % (11.6-14.4)
[2024-07-19 10:00] LABS: D Dimer 2.81 mg/L (0.19-0.50)
[2024-07-19 10:14] LABS: Alanine Aminotransferase 13 U/L (16-63); Albumin Level 2.7 g/dL (3.4-5.0); Alkaline Phosphatase 107 U/L (46-116); Anion Gap 11 mmol/L (4-12); Aspartate Amino Transferase 13 U/L (15-37); Bilirubin,Total 0.9 mg/dL (0.00-1.00); Blood Urea Nitrogen 14 mg/dL (7-18); Carbon Dioxide 22 mmol/L (21-32); Chloride 103 mmol/L (98-108); Estimated CRCL calculation 110 ml/min; Estimated Glomerular Filt Rate > 60; Glucose 132 mg/dL (70-99); NT Pro B Type Natriuretic Pept 3583 pg/mL (0-125); Osmolality Calculated 284 mOsm/kg (285-295); Potassium 3.3 mmol/L (3.5-5.1); Sodium 136 mmol/L (136-145); Total Protein 7.8 g/dL (6.4-8.2)
[2024-07-19 10:15] LABS: Lactic Acid Reflex 1.5 mmol/L (0.4-2.0)
[2024-07-19 10:15] LABS: Troponin I 5.9 ng/L (0.00-60.4)
[2024-07-19] MEDS: PIPERACILLN/TAZ 3.375GM/NS50ML 3.375 GM/50 ML BAG IVPB (10:22)
--- NOTE | 2024-07-19 10:23 | PC.NURSE ---
Patient being taken down to Ct.
--- NOTE | 2024-07-19 10:35 | PC.NURSE ---
patient back in room from CT>
[2024-07-19] MEDS: FUROSEMIDE INJ 20 MG/2 ML VIAL IV PUSH (10:38)
--- NOTE | 2024-07-19 11:13 | PC.NURSE ---
alannah mclaughlin, will start heparin once dosed by pharmacy.
[2024-07-19 11:17] LABS: INR 1.1; Partial Thromboplastin Time 24.4 Sec (23.9-30.70); Prothrombin Time 11.9 Seconds (9.50-12.1)
[2024-07-19 11:19] LABS: Occult Blood Negative (Negative)
[2024-07-19] MEDS: POTASSIUM CHLORIDE 20 MEQ ER TABLET PO (11:26)
[2024-07-19] MEDS: HEPARIN SODIUM 5,000 UNITS/ML VIAL 8500 UNITS IV PUSH (11:26)
[2024-07-19] MEDS: HEPARIN SOD/D5W 100 UNITS/ML 25,000 UNITS/250 ML BAG 15 UNITS IV CONT (11:27)
--- NOTE | 2024-07-20 12:44 | PC.NURSE ---
PRELIMINARY BLOOD CULTURE RESULTS X2: NO GROWTH TO DATE
--- NOTE | 2024-07-25 16:02 | PC.NURSE ---
Final blood culture report received shows no growth after 5 days and is negative.
== END 2024-07-19 15:50 | disposition short-term general hospital (02) ==
PROVIDERS: Emergency Provider Emergency Medicine; PCP Internal Medicine
DX: A41.9 Sepsis, unspecified organism (principal); J18.9 Pneumonia, unspecified organism; I26.99 Other pulmonary embolism without acute cor pulmonale; D64.89 Other specified anemias; I11.0 Hypertensive heart disease with heart failure; I50.9 Heart failure, unspecified; I48.20 Chronic atrial fibrillation, unspecified; Z87.891 Personal history of nicotine dependence
CPT/HCPCS: 36415; 71046; 71275; 80053; 82272; 83605; 83880; 84484; 85025; 85380; 85610; 85730; 87040; 93005; 96365; 96366; 96367; 96375; 99291; A9270; J1644; J1940; J2543; Q9967

== ENCOUNTER 2024-08-04 09:20 | Outpatient (CLI) | payer BC, SELFPAY ==
--- NOTE | ~2024-08-04 | XR_ITS ---
Clinical Indication: Pneumonia PA and lateral views of the chest: Comparison: 07/19/2024 Findings: Mild patchy haziness is improved from prior exam. There is mild bibasilar interstitial prom inence. Minimal right pleural effusion. Cardiomediastinal silhouette is within normal limits. Bones a nd soft tissues are unremarkable. Impression: Mild patchy hazy pulmonary disease, improved from prior exam. This is compatible with improving pneum onia. Minimal right pleural effusion. Possible underlying mild bibasilar interstitial disease. Reviewed, dictated and finalized at location M. TOGRAPHIC CENTER SPECIALIST Impression: Mild patchy hazy pulmonary disease, improved from prior exam. This is compatibl e with improving pneumonia. Minimal right pleural effusion. Possible underlying mild bibasilar interstitial disease.
[2024-08-04 09:57] LABS: Eosinophils Absolute Auto 0.25 K/mm3 (0.02-0.50); Eosinophils Percent Auto 2.5 % (1.0-6.0); Hematocrit 31.2 % (40.0-54.0); Hemoglobin 9.6 g/dL (14.0-18.0); Immature Granulocyte Absolute 0.07 K/mm3 (0.00-0.00); Immature Granulocyte Percent A 0.7 % (0.0-0.0); Immature Reticulocyte Fraction 29.2 % (2.0-16.52); Lymphocytes Absolute Auto 2.86 K/mm3 (1.10-4.50); Lymphocytes Percent Auto 28.4 % (18.0-42.0); Mean Corpuscular HGB Conc 30.8 g/dL (32-36); Mean Corpuscular Hemoglobin 26.1 pg (27.0-31.0); Mean Corpuscular Volume 84.8 fL (78.0-102.0); Mean Platelet Volume 8.1 fl (8.7-11.0); Monocytes Absolute Auto 0.87 K/mm3 (0.10-0.90); Monocytes Percent Auto 8.6 % (2.0-11.0); Neutrophils Absolute Auto 5.93 K/mm3 (1.70-7.20); Neutrophils Percent Auto 58.8 % (50.0-70.0); Platelet Count Result 410 K/mm3 (150-420); Red Blood Count 3.68 M/mm3 (4.70-6.10); Red Cell Distribution Width 17.1 % (11.6-14.4); Reticulocyte Hemoglobin Conten 27.8 pg (28.0-35.0); Reticulocyte Percent 4.42 % (0.50-1.50); Reticulocytes Absolute 0.16 M/mm3 (0.02-0.10); White Blood Count 10.1 K/mm3 (4.8-10.8)
[2024-08-04 11:00] LABS: Erythrocyte Sedimentation Rate 57 mm/hr (0-20)
[2024-08-04 11:11] LABS: Alanine Aminotransferase 15 U/L (16-63); Albumin Level 3.2 g/dL (3.4-5.0); Alkaline Phosphatase 120 U/L (46-116); Anion Gap 12 mmol/L (4-12); Aspartate Amino Transferase 16 U/L (15-37); Bilirubin,Total 0.8 mg/dL (0.00-1.00); Blood Urea Nitrogen 16 mg/dL (7-18); CRP 1.9 mg/dL (0.0-0.9); Calcium 9.1 mg/dL (8.5-10.1); Carbon Dioxide 25 mmol/L (21-32); Chloride 100 mmol/L (98-108); Estimated Glomerular Filt Rate > 60; Ferritin 49 ng/mL (26-388); Glucose 129 mg/dL (70-99); Iron 59 ug/dL (65-175); Lactate Dehydrogenase 169 U/L (85-227); NT Pro B Type Natriuretic Pept 3085 pg/mL (0-125); Osmolality Calculated 287 mOsm/kg (285-295); Percent Iron Saturation 14 % (12-57); Potassium 4.1 mmol/L (3.5-5.1); Sodium 137 mmol/L (136-145); Total Protein 7.8 g/dL (6.4-8.2); Vitamin B12 305 pg/mL (193-986)
[2024-08-08 08:29] LABS: Methylmalonic Acid 139 nmol/L (55-335)
[2024-08-08 18:19] LABS: Red Blood Cell Folate 715 ng/mL RBC (>280)
== END 2024-08-04 09:21 | disposition home or self-care (01) ==
PROVIDERS: PCP Internal Medicine; Visit Provider Internal Medicine
DX: D64.9 Anemia, unspecified (principal); J18.9 Pneumonia, unspecified organism; I26.99 Other pulmonary embolism without acute cor pulmonale
CPT/HCPCS: 36415; 71046; 80053; 82607; 82728; 82747; 83540; 83550; 83615; 83880; 83921; 85025; 85046; 85652; 86140

== ENCOUNTER 2024-08-12 11:07 | Outpatient (CLI) | payer BC, SELFPAY ==
[2024-08-12 11:22] LABS: Basophils Absolute Auto 0.12 K/mm3 (0.00-0.10); Eosinophils Absolute Auto 0.29 K/mm3 (0.02-0.50); Eosinophils Percent Auto 2.3 % (1.0-6.0); Hematocrit 34.8 % (40.0-54.0); Hemoglobin 10.8 g/dL (14.0-18.0); Immature Granulocyte Absolute 0.18 K/mm3 (0.00-0.00); Immature Granulocyte Percent A 1.4 % (0.0-0.0); Lymphocytes Absolute Auto 3.91 K/mm3 (1.10-4.50); Mean Corpuscular Hemoglobin 25.8 pg (27.0-31.0); Mean Corpuscular Volume 83.3 fL (78.0-102.0); Mean Platelet Volume 8.2 fl (8.7-11.0); Monocytes Absolute Auto 1.26 K/mm3 (0.10-0.90); Neutrophils Absolute Auto 6.84 K/mm3 (1.70-7.20); Neutrophils Percent Auto 54.3 % (50.0-70.0); Platelet Count Result 366 K/mm3 (150-420); Red Blood Count 4.18 M/mm3 (4.70-6.10); White Blood Count 12.6 K/mm3 (4.8-10.8)
[2024-08-12 11:23] LABS: Add Urine Microscopic? NO; Appearance Urine Clear (Clear); Bilirubin Urine Negative (Negative); Blood Urine Negative (Negative); Color Urine Yellow (Yellow); Glucose Urine UA Negative (Negative); Ketones Urine Negative (Negative); Leukocyte Esterase Ur Negative (Negative); Nitrate Urine Negative (Negative); Protein Urine Negative (Negative); Specific Grav Ur >= 1.030 (1.010-1.020); Urobilinogen Urine 0.2 mg/dL (0.2-1.0); pH Urine 5.5 (5.0-8.0)
[2024-08-12 12:17] LABS: Alanine Aminotransferase 17 U/L (16-63); Albumin Level 3.3 g/dL (3.4-5.0); Alkaline Phosphatase 126 U/L (46-116); Anion Gap 12 mmol/L (4-12); Aspartate Amino Transferase 17 U/L (15-37); Bilirubin,Total 0.5 mg/dL (0.00-1.00); Blood Urea Nitrogen 20 mg/dL (7-18); CRP 1.8 mg/dL (0.0-0.9); Calcium 9.7 mg/dL (8.5-10.1); Carbon Dioxide 25 mmol/L (21-32); Chloride 101 mmol/L (98-108); Digoxin 0.9 ng/mL (0.9-2.0); Estimated Glomerular Filt Rate > 60; Glucose 111 mg/dL (70-99); Magnesium 1.7 mg/dL (1.8-2.4); NT Pro B Type Natriuretic Pept 1739 pg/mL (0-125); Osmolality Calculated 289 mOsm/kg (285-295); Potassium 4.2 mmol/L (3.5-5.1); Sodium 138 mmol/L (136-145); Total Protein 8.1 g/dL (6.4-8.2)
== END 2024-08-12 11:08 | disposition home or self-care (01) ==
LOC: CHSLAB 11:10
PROVIDERS: PCP Internal Medicine; Visit Provider Internal Medicine
DX: I50.9 Heart failure, unspecified (principal); J18.9 Pneumonia, unspecified organism
CPT/HCPCS: 36415; 80053; 80162; 81003; 83735; 83880; 85025; 86140

== ENCOUNTER 2024-10-20 09:34 | Outpatient (CLI) | payer OTHER, SELFPAY ==
--- NOTE | ~2024-10-20 | CT_ITS ---
EXAMINATION:CT chest high resolution wo co DATE: 10/20/2024 INDICATION: Interstitial lung disease. TECHNIQUE: Computed tomography (CT) of the chest was performed without intravenous contrast. Automate d exposure control and iterative reconstruction technique were employed. The dose-length product (DLP ) was 888.54 mGy-cm. COMPARISON: Chest CT 07/19/2024 FINDINGS: There is mild emphysema. There is diffuse septal thickening in the lungs with an upper lung predominance. There is a 5 mm nodule in left lower lobe, likely benign. Right-sided pleural thickeni ng is noted. There is mild rounded atelectasis in right middle lobe and right lower lobe. No pleural effusion. There is left atrial enlargement of the heart. There are coronary artery calcifications. No pericardial effusion. There are mild calcifications of the pericardium. There is mild mediastinal an d bilateral hilar lymphadenopathy. Gynecomastia is noted. There is mild thoracic spondylosis. IMPRESSION: 1. Diffuse lung disease with interval improvement, consistent with a combination of mild emphysema an d mild chronic interstitial lung disease. 2. Mild mediastinal and bilateral hilar lymphadenopathy, likely reactive. Reviewed, dictated and finalized at location A. CARE AIDE IMPRESSION: 1. Diffuse lung disease with interval improvement, consistent with a combinatio n of mild emphysema and mild chronic interstitial lung disease. 2. Mild mediastinal and bilateral hilar lymphadenopathy, likely reactive.
--- OUTSIDE RECORDS SUMMARY | 2024-10-20 10:33 | XMS_ITS | Encounter Summary ---
Author Organization [facility] Address [address] [place] [address] Care Team Providers Care Instructor Physical Name Role Phone Michael Oconnor MD Unavailable [phone] David Chance MD Primary Care Provider [phone] Encounter Details Date Type Department Care Team (Late st Contact Info) Description 07/25/2024 Hospital Follow-up Call [facility] [address] [place] [address] Dionna Sales RN Social History Tobacco Use Types Packs/Day Years Used Date Smoking Tobacco: Former Cigarettes Q uit: 2020 Smokeless Tobacco: Never [facility] Utilities Answer Date Recorded In the past 12 months has e electric, gas, oil, or water company threatened to shut off services in your home? No 07/19/2024 Humiliation, Afraid, Rape, and Kick questionnair e Answer Date Recorded Within the last year, have y ou been afraid of your partner or ex-partner? No 07/19/2024 Within the last year, have y ou been humiliated or emotionally abused in other ways by your partner or ex-partner? No Within the last year, have y ou been kicked, hit, slapped, or otherwise physically hurt by your partner or ex-partner? No 07/19/2024 Within the last year, have y ou been raped or forced to have any kind of sexual activity by your partner or ex-partner? No 07/19/2024 Overall Financial Resource Strain (CARDIA) Answe r Date Recorded How hard is it for you to pa y for the very basics like food, housing, medical care, and heating? Not hard at all 07/19/2024 Hunger Vital Sign Answer Date Recorded Within the past 12 months, y ou worried that your food would run out before you got the money to buy more. Never true 07/19/20 24 Within the past 12 months, t he food you bought just didn't last and you didn't have money to get more. Never true 07/19/2024 PRAPARE - Transportation Answer Date Re corded In the past 12 months, has l ack of transportation kept you from medical appointments or from getting medications? No 10/2023 In the past 12 months, has l ack of transportation kept you from meetings, work, or from getting things needed for daily living? No 07/19/2024 Housing Stability Vital Sign Answer Rich e Recorded In the last 12 months, was t here a time when you were not able to pay the mortgage or rent on time? No 07/19/2024 In the past 12 months, how m any times have you moved where you were living? 0 07/19/2024 At any time in the past 12 m [facility], were you homeless or living in a senior living (including now)? No 07/19/2024 Sex and Gender Information Value Date Recorded Sex Assigned at Not on file Legal Sex Male 9:04 PM CDT Gender Identity Not on file Sexual Orientation Not on file documented as of this encounter Functional Status * Are you deaf or do you have serious difficulty hearing Answer Date of Assessment Author Status No 07/19/2024 5:00 PM Estephania Yan RN Active * Are you blind or do you have serious difficulty seeing, even when wearing glasses? Answer Date of Assessment Author Status No 07/19/2024 5:00 PM Estephania Yan RN Active * Do you have serious difficulty walking or climbing stairs? Answer Date of Assessment Author Status No 07/19/2024 5:00 PM Estephania Yan RN Active * Do you have difficulty dressing or bathing? Answer Date of Assessment Author Status No 07/19/2024 5:00 PM Estephania Yan RN Active * Because of a physical, mental, or emotional condition, do you have difficulty doing errands alone such as visiting a doctor's office or shopping? Answer Date of Assessment Author Status No 07/19/2024 5:00 PM Estephania Yan RN Active documented as of this encounter Mental Status * Because of a physical, mental, or emotional condition, do you have serious difficulty concentrating, remembering, or making decisions? Answer Entry Date Author Status No 07/19/2024 5:00 PM Estephania Yan RN Active documented in this encounter Plan of Treatment Upcoming Encounters Date Type Department Care Team (Late st Contact Info) Description 11/22/2024 1:00 PM CDT Office Visit [facility] eld [address] [place] [address] Laurie Washington, NUT CRACKER [address] [facility] [address] [place] [address] documented as of this encounter Visit Diagnoses Not on filedocumented in this encounter Care Teams Instructor Physical Relationship Specialty Start Date End Date David Chance MD [address] [place] [id number] PCP - General INTERNAL MEDICINE 07/19/24 Michael Oconnor MD [address] [facility] [address] [id number] Consulting Physician CARDIOVASCULAR DISEASE 07/20/24 documented as of this encounter
--- OUTSIDE RECORDS SUMMARY | 2024-10-20 10:33 | XMS_ITS | Clinical Summary ---
Author Organization [facility] Address [address] [place] [address] Care Team Providers Care Boiler House Operator Name Role Phone David Chance MD Primary Care Provider [phone] [facility],non-owned Affiliates and Associated Physician Practices is amultiple site organization consisting of ambulatory clinics and hospital sitesin [place], [place], [place] and [place]. This disclosure is being madepursuant to the Care Everywhere program and may not contain all information available regarding this patient. Last updated 18.[facility] Social History Tobacco Use Types Packs/Day Years Used Date Smoking Tobacco: Never Assessed Sex and Gender Information Value Date Recorded Sex Assigned at Not on file Gender Identity Not on file Sexual Orientation Not on file Plan of Treatment Health Maintenance Due Date Last Done Comments COLOGUARD (AGES 45-75) - COL ON CA SCREENING 1969 COLON MONITORING 1969 COLONOSCOPY - COLON CA SCREENING 1969 CT COLONOGRAPHY - COLON CA SCREENING 1969 Colorectal Cancer Screening 1969 FIT - COLON CA SCREENING 1969 FLEX SIG - COLON CA SCREENING 1969 LIPID TESTING 1969 HIV SCREENING 1984 HEPATITIS C SCREENING 12/20/1987 DTAP/TDAP/TD VACCINES (1 - Tdap) 1988 HEPATITIS B VACCINE (1 of 3 - 19+ 3-dose series) 1988 PNEUMOCOCCAL VACCINE 50+ (1 of 1 - PCV) 12/25/2019 ZOSTER VACCINE (1 of 2) 12/25/2019 COVID-19 VACCINE ( - 2023-2 5 season) 2024 INFLUENZA VACCINE (#1) 2024 DEPRESSION SCREENING 08/17/2024 HIB VACCINE Aged Out No longer eligi ble based on patient's age to complete this topic HPV VACCINE Aged Out No longer eligi ble based on patient's age to complete this topic MENINGOCOCCAL (Group B) VACCINE Aged Out No longer eligible based on patient's age to complete this topic MENINGOCOCCAL VACCINE Aged Out No ru tayler eligible based on patient's age to complete this topic PNEUMOCOCCAL VACCINE Aged Out No long er eligible based on patient's age to complete this topic Care Teams Boiler House Operator Relationship Specialty Start Date End Date David Chance MD [address] [place] [address] PCP - General 12/23/22
--- OUTSIDE RECORDS SUMMARY | 2024-10-20 10:33 | XMS_ITS | Clinical Summary ---
Author Organization [facility] Address [address] [place] [address] Care Team Providers Care Roping Tender Name Role Phone Michael Oconnor MD Unavailable David Chance MD Primary Care Provider [phone] Allergies No known active allergies Medications atorvastatin (LIPITOR) 20 MG tablet Take 1 tablet (20 mg total) by mouth nightly at bedtime. Active famotidine (PEPCID) 20 MG tablet Take 1 tablet (20 mg total) by mouth 2 (two) times daily. Active fenofibrate (TRICOR) 48 MG tablet Take 1 tablet (48 mg total) by mouth daily. Active losartan (COZAAR) 100 MG tablet Take 1 tablet (100 mg total) by mouth daily. Active OXYGEN CONCENTRATOR SUPPLY, DME,Indications: Bilateral pulmonary embolism (CMS/HCC HHS/HCC),Hypoxia 1 Device by Nasal route continuous. Nasal cannula needed. Portable oxygen concentrator pulse dose 2 1 Device 07/21/20 24 Active dilTIAZem CD (CARDIZEM CD) 240 MG 24 hr capsule Take 1 capsule (240 mg total) by mouth daily. 07/21/20 24 Active apixaban (ELIQUIS) 5 MG tabletIndication s:Pulmonary Embolism Take 2 tablets (10 mg total) by mouth 2 (two) times daily for 7 days, THEN 1 tablet (5 mg total) 2 (two) times daily for 60 days. Indications: Blockage of Blood Vessel to Lung by a Particle. 148 tablet 07/21/20 24 025 Active Problems Problem Noted Date Diagnosed Date Bilateral pulmonary embolism (CMS/HCC HHS/HCC) 1 09/19/2023 Encounters Date Type Department Care Team Description 09/15/2024 Orders Only [facility] [address] [place] [address] Kaci Nielsen MD 07/25/2024 Hospital Follow-up Call [facility] [address] [place] [address] Dionna Sales RN 07/22/2024 Telephone [facility] [address] [place] [address] Kaci Nielsen MD Appointment Request; Called To Cancel Office Appt. from Last 3 Months Family History Medical History Relation Comments No Known Problems Father No Known Problems Mother Relation Status Comments Father Mother Social History Tobacco Use Types Packs/Day Years Used Date Smoking Tobacco: Former Cigarettes Q uit: 2020 Smokeless Tobacco: Never Tobacco Cessation:Counseling Given: Not Answered [facility] Utilities Answer Date Recorded In the past 12 months has health system [email or web address], gas, oil, or water [employer] threatened to shut off services in your [...] any time in the past 12 [facility], were you homeless or living in a fpc (including now)? No 07/19/2024 Sex and Gender Information Value Date Recorded Sex Assigned at Not on file Legal Sex Male 9:04 PM CDT Gender Identity Not on file Sexual Orientation Not on file Last Filed Vital Signs Vital Sign Reading Time Taken Comments Blood Pressure 122/72 07/21/2024 3:30 PM HEALTH EDITOR Pulse 98 07/21/2024 4:34 PM HEALTH EDITOR Temperature 36.6 C (97.8 F) 07/21/2024 3:30 PM HEALTH EDITOR Respiratory Rate 18 07/21/2024 3:30 PM HEALTH EDITOR Oxygen Saturation 99% 07/21/2024 4:34 PM HEALTH EDITOR Inhaled Oxygen Concentration - - Weight 146.2 kg (322 lb 5 oz) 07/21/2024 4:08 AM HEALTH EDITOR Height 188 cm (6' 2 ) 07/19/2024 5:12 PM HEALTH EDITOR Body Mass Index 41.38 07/19/2024 5:12 PM HEALTH EDITOR Plan of Treatment Upcoming Encounters Date Type Department Care Team ([facility] st Contact Info) Description 11/22/2024 1:00 PM CDT Office Visit [facility] [address] [place] [phone] Laurie Washington NP [address] [place] [address] Health Maintenance Due Date Last Done Comments Colorectal Cancer Screening Colonoscopy (10 Years) 1969 Annual Physical 1972 Hepatitis C 12/25/1987 Hepatitis B Vaccines (1 of 3 - 19+ 3-dose series) 1988 COVID-19 Vaccine ( - season) 2024 06/12/2023, 09/04/2021, 10/23/2020, Additional history exists Influenza Adult (#1) 2024 05/27/2023, 05/23/2020, 06/23/2017, Additional history exists DTaP, Tdap and Td Vaccines (2 - Td or Tdap) 04/29/2032 04/29/2022 Zoster Vaccines Completed 06/17/2023, 09/11/2022 Meningococcal B Vaccine Aged Out No l onger eligible based on patient's age to complete this topic Meningococcal Vaccine Aged Out No ru tayler eligible based on patient's age to complete this topic Pneumococcal Vaccine: Pediatrics (0 to 5 Years) and At-Risk Patients (6 to 64 Years) Aged Out No longer eligible based on patient's age to complete this topic RSV Immunizations Under 20 Months Aged Out No longer eligible based on patient's age to complete this topic Insurance C/[employer] [place] [id number] [employer] Advance Directives * Full Code (Latest Code Status on File) Date Activated Date Inactivated Comments 07/19/2024 5:15 PM 07/21/2024 8:28 PM Care Teams Roping Tender Relationship Specialty Start Date End Date David Chance MD [address] [place] [phone] PCP - General INTERNAL MEDICINE 07/19/24 Michael Oconnor MD [address] [facility] [address] [phone] Consulting Physician CARDIOVASCULAR DISEASE 07/20/24
--- OUTSIDE RECORDS SUMMARY | 2024-10-20 10:33 | XMS_ITS | CONTINUITY OF CARE DOCUMENT ---
Author Name qiisidoroser, qieuser Address Unknown Organization [facility] Address [address] [place] [address] Phone [phone] Care Team Providers Care Adjunct Instructor Chemistry Name Role Phone Kirsty Castelan MD Unavailable GLADYS ROJAS MD Unavailable [phone] GLADYS ROJAS MD Unavailable PROBLEMS Condition Status Date Provider Notes HTN active Kirsty Castelan MD Abnormal EKG active Kirsty Casetlan MD Obstructive sleep apnea - on CPAP active Jon Castelan MD Obesity active Kirsty Castelan MD Tobacco abuse active Kirsty Castelan MD 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 Kirsty ac MD Near syncope active Kirsty Castelan MD ENCOUNTERS Date Type Provider Location Encounter Diag nosis - In-person encounter Office Visit [facility] Obstructive sleep apnea - on CPAP - In-person encounter Office Visit [facility] HTNAbnormal EKGObstructive sleep apnea - on CPAPObesityTobacco abuseElbow neuropathy ?ulnarNear syncope VITAL SIGNS Date Observation Value Provider blood pressure, diastolic 72 mm[Hg] Jon Castelan MD blood pressure, systolic 150 mm[Hg] Ariella Castelan MD pulse rate 96 /min Kirsty Castelan MD oxygen saturation, oximetry 95 % Kirsty Castelan MD respiratory rate E&M 20 /min Bety Castelan MD Body Mass Index (Ratio) 39.80 kg/m2 Efraín Castelan MD weight E&M 310 [lb_av] Kirsty Castelan MD blood pressure, diastolic, left arm 70 mm [Hg] Kirsty Castelan MD blood pressure, systolic, left arm 120 mm [Hg] Kirsty Castelan MD blood pressure, diastolic, right arm 74 m m[Hg] Kirsty Castelan MD blood pressure, systolic, right arm 128 m m[Hg] Kirsty Castelan MD blood pressure, diastolic 70 mm[Hg] Jon Castelan MD blood pressure, systolic 120 mm[Hg] Ariella Castelan MD pulse rate 95 /min Kirsty Castelan MD oxygen saturation, oximetry 95 % Kirsty Castelan MD respiratory rate E&M 18 /min Bety Castelan MD Body Mass Index (Ratio) 40.05 kg/m2 Efraín Castelan MD weight E&M 312 [lb_av] Kirsty Castelan MD height E&M 74 [in_i] Kirsty Castelan MD ALLERGIES No Known Drug Allergies HISTORY OF MEDICATION USE Medication Status Instructions Dates Provider Indications Com ments HYDROCODONE-ACET AMINOPHEN 7.5-325 MG ORAL TABLET active one Q 6 hrs as needed Kirsty Castelan MD FAMOTIDINE 20 MG ORAL TABLET active Kirsty Castelan MD DICLOFENAC SODIUM 75 MG ORAL TABLET DELAYED RELEASE active Kirsty Castelan MD ATENOLOL 25 MG ORAL TABLET active ONE TAB. DAILY Kirsty Castelan MD SOCIAL HISTORY Date Observation Value Provider social history E&M S moking History: P atient currently smokes every day. P atient has been counseled to quit. Kirsty Castelan MD smoking/tobacco cess ation, patient education and counseling yes Kirsty Castelan MD smoking status Current every day smoker M bethany Castelan MD social history reviewed E&M revi ewed - no changes required Kirsty Castelan MD alcohol counseling yes Kirsty Castelan MD alcohol use, average drinks per day 2-3 Kirsty Castelan MD alcohol use, type beer Kirsty abbott MD alcohol use yes Kirsty Castelan MD cigarette use yes Kirsty Castelan MD smoking/tobacco cess ation, patient education and counseling yes Kirsty Castelan MD social history E&M S moking History: P atient currently smokes every day. P atient has been counseled to quit. Kirsty Castelan MD smoking status Current every day smoker M bethany Castelan MD social history reviewed E&M revi ewed - no changes required Kirsty Castelan MD FAMILY HISTORY Family Member Condition Mother Negative FH of Diabe lavonne, Hypertension, or Coronary Artery Disease Father Negative FH of Diabe lavonne, Hypertension, or Coronary Artery Disease INSURANCE PROVIDERS Payer name Policy type / Coverage type [employer] red democrat ID [facility] [id number] 1 TREATMENT PLAN Date Name Performer Cardiology:His recen t stress test shows normal perfusion and his echocardiogram shows a normal EF. Kirsty Castelan MD Cardiology:Strongly advised to s top smoking. Kirsty Castelan MD Cardiology:Weight loss advised. Kirsty Castelan MD Cardiology:He likely requires galvan rgery. Kirsty Castelan MD Cardiology:No furthe r recurrence. The event monitor shows no significant arrhythmia. Kirsty Castelan MD Cardiology:Blood pressure contro l is satisfactory. Kirsty Castelan MD Cardiology:Results o f recent sleep study show severe ARVIND. Awaiting a CPAP. Kirsty Castelan MD Cardiology printed t o [place]/fxd to pcp:He will need nerve conduction studies. I leave this to you. Kirsty Castelan MD Cardiology printed t o [place]/fxd to pcp:The EKG is secondary to HTN with LVH and a strain pattern. He however has risk factors for CAD and we will arrange for him to have an adenosine stress myoview. Kirsty Castelan MD Cardiology printed t o [place]/fxd to pcp:Strongly advised to quit smoking. Kirsty Castelan MD Cardiology printed t o [place]/fxd to pcp:Weight loss advised. Kirsty Castelan MD Cardiology printed t o [place]/fxd to pcp:Awaiting home sleep monitoring. Kirsty Castelan MD Cardiology printed t o [place]/fxd to pcp:Blood pressure control is satisfactory. Kirsty Castelan MD Cardiology printed t o [place]/fxd to pcp:Unclear etiology. ?Vasovagal syncope +/- Sleep apnea. ?Arrhythmia. We will arrange for him to have an event monitor. Kirsty Castelan MD Date Name STR - Nuclear Complete Echo Mobile Cardiac Tele HISTORY OF PROCEDURES Procedure Date Procedure Name Provider Procedure Notes S tatus SNOMED-CT: 570770110 668441 Current Medications Documented Kirsty Castelan MD completed SNOMED-CT: 941656789 Smoking Cessation Counseling Kirsty Castelan MD completed SNOMED-CT: 80315813 Physical Exam, Performed: Pulse Exam of Foot Kirsty Castelan MD completed SNOMED-CT: 249532899 042747 Current Medications Documented Kirsty Castelan MD completed SNOMED-CT: 189280984 Smoking Cessation Counseling Kirsty Castelan MD completed SNOMED-CT: 53998633 Physical Exam, Performed: Pulse Exam of Foot Kirsty Castelan MD completed
--- OUTSIDE RECORDS SUMMARY | 2024-10-20 10:33 | XMS_ITS | Referral Summary ---
Author Organization [facility] Address [address] [place] [address] Care Team Providers Care Billing Department Supervisor Name Role Phone David Chance MD Primary Care Provider Source Comments [facility],non-owned Affiliates and Associated Physician Practices is amultiple site organization consisting of ambulatory clinics and hospital sitesin [place], [place], [place] and [place]. This disclosure is being madepursuant to the Care Everywhere program and may not contain all information available regarding this patient. Last updated 18.[facility] Social History Tobacco Use Types Packs/Day Years Used Date Smoking Tobacco: Never Assessed Sex and Gender Information Value Date Recorded Sex Assigned at Not on file Gender Identity Not on file Sexual Orientation Not on file Plan of Treatment Not on file Care Teams Billing Department Supervisor Relationship Specialty Start Date End Date David Chance MD [address] [place], [place] [phone] PCP - General 12/23/22
--- OUTSIDE RECORDS SUMMARY | 2024-10-20 10:33 | XMS_ITS | Patient Health Summary ---
Author Organization [facility] Address [address] [place] [address] Care Team Providers Care Traffic Agent Name Role Phone David Chance MD Primary Care Provider [phone] Note from [facility],non-owned Affiliates and Associated Physician Practices is amultiple site organization consisting of ambulatory clinics and hospital sitesin [place], [place], [place] and [place]. This disclosure is being madepursuant to the Care Everywhere program and may not contain all information available regarding this patient. Last updated 18.[facility] Social History Tobacco Use Types Packs/Day Years Used Date Smoking Tobacco: Never Assessed Sex and Gender Information Value Date Recorded Sex Assigned at Not on file Gender Identity Not on file Sexual Orientation Not on file Procedures * DERMATOPATHOLOGY(Performed 04/04/2019) * DERMATOPATHOLOGY(Performed 03/01/2019) Results * DERMATOPATHOLOGY (04/04/2019 12:00 AM CDT) Only the most recent of2 resultswithin the time period is included. Case Report Dermatopathology Report Case: [id number] Authorizing Provider: Loretta Machado DO Collected: 04/04/2019 12:00 AM Ordering Location: [facility] Received: 04/05/2019 12:08 PM Pathologist: Courtney Alonzo MD Specimens: A) - Skin, left chest B) - Skin, left forearm 9 11:53 AM CDT DERMATOPATHOLOGY LABORATORY Final Diagnosis Specimen A. SKIN, left chest: BASAL CELL CARCINOMA, SUPERFICIAL MULTIFOCAL (C44.519) Specimen B. SKIN, left forearm: BENIGN VERRUCOUS KERATOSIS (L82.1) TELANGIECTASES (I78.1) 11:53 AM [facility] DERMATOPATHOLOGY LABORATORY Clinical History A-B: BCC, non-healing. 11:53 AM T DERMATOPATHOLOGY LABORATORY Gross Description Specimen A: Received is one formalin filled container labeled with the patient's name and designated left chest. The specimen consists of a shave measuring 4m6j2za. Jar 0. Specimen B: Received is one formalin filled container labeled with the patient's name and designated left forearm. The specimen consists of a shave measuring 3o7f9we. Jar 0. 11:53 AM [facility] DERMATOPATHOLOGY LABORATORY Microscopic Description Specimen A. SKIN, left chest: Attached to the undersurface of the epidermis, there are small aggregates of basaloid cells with a high nuclear to cytoplasmic ratio and peripheral palisading. Specimen B. SKIN, left forearm: Sections show hyperkeratosis, papillomatosis, hypergranulosis, and acanthosis. These histological findings can be seen in a verruca vulgaris or a seborrheic keratosis. Within the dermis there are dilated thin-walled vessels lined by a single layer of endothelium. 11:53 AM [facility] DERMATOPATHOLOGY LABORATORY Disclaimer An external and internal positive and negative controls are appropriate for the histochemical, immunohistochemical and immunofluorescence stain(s) in this case (if any), except where stated explicitly. The performance characteristics of the stain(s) cited in this report were developed and its performance characteristic determined by the Dermatopathology Laboratory at [facility], directed by Dr. Allison Rivera. These tests need not be, and therefore are not, approved by the [place] Food and Drug Administration. The tests are used for clinical purposes. Billing Codes Specimen Charges Stain Charges 51818 08227 1 1 11:53 AM CDT DERMATOPATHOLOGY LABORATORY Embedded Images 11:53 AM T DERMATOPATHOLOGY LABORATORY Pathology/Cytology TISSUE SPECIMEN FROM SKIN / Unknown 04/04/2019 04/05/2019 12:08 PM CDT Miscellaneous samples (specimen) TISSUE SPECIMEN FROM SKIN / Unknown 04/04/2019 04/05/2019 12:08 PM CDT Loretta Rosamanda Machado DO LAB - PATHOLOGY/C YTOLOGY ORDERABLES DERMATOPATHOLOGY LABORATORY [facility] - Department of Dermatology [address] [place] [address], [facility] [phone] Care Teams Traffic Agent Relationship Specialty Start Date End Date David Chance MD [address] [place] [address] PCP - General 12/23/22
--- OUTSIDE RECORDS SUMMARY | 2024-10-20 10:33 | XMS_ITS | Encounter Summary ---
Author Organization [facility] Address [address] [place] [address] Care Team Providers Care Clinical Practice Consultant Name Role Phone David Chance MD Primary Care Provider [phone] Encounter Details Date Type Department Care Team (Late st Contact Info) Description 04/05/2019 Lab Requisition [facility] DermPath Lab [address] [place] [address] Loretta Machado DO [address] [address] [facility] [address] [place] [address] Social History Tobacco Use Types Packs/Day Years Used Date Smoking Tobacco: Never Assessed Sex and Gender Information Value Date Recorded Sex Assigned at Not on file Gender Identity Not on file Sexual Orientation Not on file documented as of this encounter Plan of Treatment Not on file documented as of this encounter Procedures Procedure Name Priority Date/Time Associated Diagnosis Comments DERMATOPATHOLOGY Routine 04/04/2019 12:0 0 AM CDT documented in this encounter Results * DERMATOPATHOLOGY (04/04/2019 12:00 AM CDT) Case Report Dermatopathology Report Case: [id number] Authorizing Provider: Loretta Machado DO Collected: 04/04/2019 12:00 AM Ordering Location: [facility]erm[facility] Lab Received: 04/05/2019 12:08 PM Pathologist: Courtney Alonzo MD Specimens: A) - Skin, left chest B) - Skin, left forearm 9 11:53 AM CDT DERMATOPATHOLOGY LABORATORY Final Diagnosis Specimen A. SKIN, left chest: BASAL CELL CARCINOMA, SUPERFICIAL MULTIFOCAL (C44.519) Specimen B. SKIN, left forearm: BENIGN VERRUCOUS KERATOSIS (L82.1) TELANGIECTASES (I78.1) 11:53 AM T DERMATOPATHOLOGY LABORATORY Clinical History A-B: BCC, non-healing. 11:53 AM T DERMATOPATHOLOGY LABORATORY Gross Description Specimen A: Received is one formalin filled container labeled with the patient's name and designated left chest. The specimen consists of a shave measuring 8r3m4zl. Jar 0. Specimen B: Received is one formalin filled container labeled with the patient's name and designated left forearm. The specimen consists of a shave measuring [id number]. Jar 0. 11:53 AM CDT DERMATOPATHOLOGY LABORATORY Microscopic Description Specimen A. SKIN, [...] a single layer of endothelium. 11:53 AM T DERMATOPATHOLOGY LABORATORY Disclaimer An external and internal positive and negative controls are appropriate for the histochemical, immunohistochemical and immunofluorescence stain(s) in this case (if any), except where stated explicitly. The performance characteristics of the stain(s) cited in this report were developed and its performance characteristic determined by the Dermatopathology Laboratory at [facility], directed by Dr. Allison Rivera. These tests need not be, and therefore are not, approved by the [place] Food and Drug Administration. The tests are used for clinical purposes. Billing Codes Specimen Charges Stain Charges 87797 38123 1 1 11:53 AM CDT DERMATOPATHOLOGY LABORATORY Embedded Images 11:53 AM CDT DERMATOPATHOLOGY LABORATORY Pathology/Cytology TISSUE SPECIMEN FROM SKIN / Unknown 04/04/2019 04/05/2019 12:08 PM CDT Miscellaneous samples (specimen) TISSUE SPECIMEN FROM SKIN / Unknown 04/04/2019 04/05/2019 12:08 PM CDT Loretta Machado DO LAB - PATHOLOGY/C YTOLOGY ORDERABLES DERMATOPATHOLOGY LABORATORY [facility] - Department of Dermatology [address] [place] [address], [address] Floor Lab [address] [phone] documented in this encounter Visit Diagnoses Not on filedocumented in this encounter Care Teams Clinical Practice Consultant Relationship Specialty Start Date End Date David Chance MD [address] [place] [address] PCP - General 12/23/22 documented as of this encounter
--- OUTSIDE RECORDS SUMMARY | 2024-10-20 10:33 | XMS_ITS | Encounter Summary ---
Author Organization [facility] Address [address] [place] [address] Care Team Providers Care Roaster Helper Name Role Phone David Chance MD Primary Care Provider [phone] Encounter Details Date Type Department Care Team (Late st Contact Info) Description 03/02/2019 Lab Requisition [facility] Care DermPath Lab [address] [place] [address] Loretta Mcahado DO [address] [facility] [place] [address] Social History Tobacco Use Types Packs/Day Years Used Date Smoking Tobacco: Never Assessed Sex and Gender Information Value Date Recorded Sex Assigned at Not on file Gender Identity Not on file Sexual Orientation Not on file documented as of this encounter Plan of Treatment Not on file documented as of this encounter Procedures Procedure Name Priority Date/Time Associated Diagnosis Comments DERMATOPATHOLOGY Routine 03/01/2019 12:0 0 AM CDT documented in this encounter Results * DERMATOPATHOLOGY (03/01/2019 12:00 AM CDT) Case Report Dermatopathology Report Case: [id number] Authorizing Provider: Loretta Machado DO Collected: 03/01/2019 12:00 AM Pathologist: Ever Rivera MD Received: 03/02/2019 06:59 AM Specimen: Skin, left post ear 9 4:08 PM CDT DERMATOPATHOLOGY LABORATORY Final Diagnosis Specimen A. SKIN, left post ear: EPIDERMOID CYST (L72.0) 9 4:08 PM CDT DERMATOPATHOLOGY LABORATORY Clinical History R/O cyst 9 4:08 PM CDT DERMATOPATHOLOGY LABORATORY Gross Description Specimen A: Received is one formalin filled container labeled with the patient's name and designated left post ear. The specimen consists of a 9x3x7 mm piece of skin, bisected and submitted in cassette 1. Jar 0. 9 4:08 PM CDT DERMATOPATHOLOGY LABORATORY Microscopic Description Specimen A. SKIN, left post ear: Within the dermis, there is a space lined by epithelium that resembles normal epidermis and the infundibular portion of the hair follicle. 9 4:08 PM CDT DERMATOPATHOLOGY LABORATORY Disclaimer An external and internal positive and negative controls are appropriate for the histochemical, immunohistochemical and immunofluorescence stain(s) in this case (if any), except where stated explicitly. The performance characteristics of the stain(s) cited in this report were developed and its performance characteristic determined by the Dermatopathology Laboratory at [facility], directed by Dr. Allison Rivera. These tests need not be, and therefore are not, approved by the [place] Food and Drug Administration. The tests are used for clinical purposes. Billing Codes Specimen Charges Stain Charges 41286 1 9 4:08 PM CDT DERMATOPATHOLOGY LABORATORY Embedded Images 9 4:08 PM CDT DERMATOPATHOLOGY LABORATORY Pathology/Cytolog y TISSUE SPECIMEN FROM SKIN / Unknown 03/01/2019 03/02/2019 6:59 AM CDT Loretta Machado DO LAB - PATHOLOGY/C YTOLOGY ORDERABLES DERMATOPATHOLOGY LABORATORY [facility] - Department of Dermatology [address] [place] [address], 5[address] Floor Lab [address] [phone] documented in this encounter Visit Diagnoses Not on filedocumented in this encounter Care Teams Roaster Helper Relationship Specialty Start Date End Date David Chance MD [address] [place] [address] PCP - General 12/23/22 documented as of this encounter
== END 2024-10-20 09:35 | disposition home or self-care (01) ==
LOC: CHSIMG 09:36
PROVIDERS: PCP Internal Medicine; Visit Provider Internal Medicine
DX: J84.9 Interstitial pulmonary disease, unspecified (principal); R59.0 Localized enlarged lymph nodes
CPT/HCPCS: 71250

== ENCOUNTER 2024-11-15 08:56 | Outpatient (CLI) | payer OTHER, SELFPAY ==
[2024-11-15 09:10] VITALS: PULSE 74; O2SAT 98
[2024-11-15 09:18] VITALS: PULSE 98; O2SAT 96
--- OUTSIDE RECORDS SUMMARY | 2024-11-15 09:20 | XMS_ITS | Clinical Summary ---
Author Organization [facility] Address [address] [place] [address] Care Team Providers Care Recording Studio Setup Worker Name Role Phone Michael Oconnor MD Unavailable [phone] David Chance MD Primary Care Provider Allergies No known active allergies Medications atorvastatin [...] oxygen concentrator pulse dose 2 1 Device 4 Active dilTIAZem CD (CARDIZEM CD) 240 MG 24 hr capsule Take 1 capsule (240 mg total) by mouth daily. 4 Active Active Problems Problem Noted Date Diagnosed Date Bilateral pulmonary embolism (CMS/HCC HHS/HCC) 1 09/19/2023 Encounters Date Type Department Care Team Description 09/15/2024 Orders Only [facility] [address] [place] [address] Kaci Nielsen MD from Last 3 Months Family History Medical History Relation Comments No Known Problems Father No Known Problems Mother Relation Status Comments Father Mother Social History Tobacco Use Types Packs/Day Years Used Date Smoking Tobacco: Former Cigarettes Q uit: 2020 Smokeless Tobacco: Never Tobacco Cessation:Counseling Given: Not Answered [facility] Utilities Answer Date Recorded In the past 12 months has th e electric, gas, oil, or water company [...] any time in the past [address] [facility], were you homeless or living in a [facility] (including now)? No 07/19/2024 Sex and Gender Information Value Date Recorded Sex Assigned at Not on file Legal Sex Male 9:04 PM CDT Gender Identity Not on file Sexual Orientation Not on file Last Filed Vital Signs Vital Sign Reading Time Taken Comments Blood Pressure 122/72 07/21/2024 3:30 PM DIRECTOR OF INDIVIDUAL GIVING Pulse 98 07/21/2024 4:34 PM DIRECTOR OF INDIVIDUAL GIVING Temperature 36.6 C (97.8 F) 07/21/2024 3:30 PM DIRECTOR OF INDIVIDUAL GIVING Respiratory Rate 18 07/21/2024 3:30 PM DIRECTOR OF INDIVIDUAL GIVING Oxygen Saturation 99% 07/21/2024 4:34 PM DIRECTOR OF INDIVIDUAL GIVING Inhaled Oxygen Concentration - - Weight 146.2 kg (322 lb 5 oz) 07/21/2024 4:08 AM DIRECTOR OF INDIVIDUAL GIVING Height 188 cm (6' 2 ) 07/19/2024 5:12 PM DIRECTOR OF INDIVIDUAL GIVING Body Mass Index 41.38 07/19/2024 5:12 PM DIRECTOR OF INDIVIDUAL GIVING Plan of Treatment Upcoming Encounters Date Type Department Care Team ([facility] Contact Info) Description 11/22/2024 1:00 PM CDT Office Visit [facility] [address] [place] [address] Laurie Washington NP [address] [facility] [place] [address] Health Maintenance Due Date Last Done Comments Colorectal Cancer Screening Colonoscopy (10 Years) 1969 Annual Physical 1972 Hepatitis C 12/25/1987 Hepatitis B Vaccines (1 of 3 - 19+ 3-dose series) 1988 COVID-19 Vaccine ( season) 2024 06/12/2023, 09/04/2021, 10/23/2020, Additional history exists DTaP, Tdap and Td [...] patient's age to complete this topic Insurance [facility] AETNA Advance Directives * Full Code (Latest Code Status on File) Date Activated Date Inactivated Comments 07/19/2024 5:15 PM 07/21/2024 8:28 PM Care Teams Recording Studio Setup Worker Relationship Specialty Start Date End Date David Chance MD [address] [place] [address] PCP - General INTERNAL MEDICINE 07/19/24 Michael Oconnor MD [address] [place] [id number] Consulting Physician CARDIOVASCULAR DISEASE 07/20/24
--- OUTSIDE RECORDS SUMMARY | 2024-11-15 09:20 | XMS_ITS | Clinical Summary ---
Author Organization [facility] Address [address] [place] [address] Care Team Providers Care Medical Planner Name Role Phone David Chance MD Primary Care Provider [phone] Source Comments [facility],non-owned Affiliates and Associated Physician Practices is amultiple site organization consisting of ambulatory clinics and hospital sitesin [place], [place], [place] and [place]. This disclosure is being madepursuant to the Care Everywhere program and may not contain all information available regarding this patient. Last updated 18.[facility] Social History Tobacco Use Types Packs/Day Years [...] to complete this topic MENINGOCOCCAL (Group B) VACC INE SHARED DECISION-MAKING Aged Out No longer eligibl e based on patient's age to complete this topic MENINGOCOCCAL GROUPS A/C/Y/W VACCINE Aged Out No longer eligible b ased on patient's age to complete this topic PNEUMOCOCCAL VACCINE Aged Out No long er eligible based on patient's age to complete this topic Care Teams Medical Planner Relationship Specialty Start Date End Date David Chance MD [address] [place], [place] [id number] PCP - General 12/23/22
--- OUTSIDE RECORDS SUMMARY | 2024-11-15 09:20 | XMS_ITS | Data Portability ---
Author Organization [place] [facility] OFFICE Address [address] [place] [address] Care Team Providers Care Park Manager Name Role Phone GLADYS ROJAS Primary Care Provider [phone] Assessment Encounter Date Assessment Date Assessment LastModified by Organization Details LastModified Time 06/06/2022 06/06/2022 This document was scribed by NIMA Goodman [email or web address] Not available 06/06/2022 11:49:00 06/22/2023 06/22/2023 Patient Examined by NIMA Goodman, Also Documentation reviewed and approved by supervising physician [email or web address] Not available 06/22/2023 12:05:10 Plan of Treatment Reminders Order Date Submit Date Provider Last Modified By Organization Details Last Modified Time Details Appointments None recorded. Lab None recorded. Referral None recorded. Procedures None recorded. Surgeries None recorded. Imaging None recorded. Medication Orders Jardiance 10 mg tablet 2023 024 [facility], [address] [place] [address], [address], 4 09:23:09 Jardiance 10 mg tablet 2022 023 [facility], [facility] [place], [address], 3 11:12:55 Patient TargetsNo targets recorded. Patient Instructions Encounter Date Encounter Id Patient Instructions Last Modified By Organization Details Last Modified Time 11/29/2021 [id number] high blood pressure: care instructions [email or web address] Not available 11/29/2021 12:53:18 learning about high blood pressure [email or web address] Not available 11/29/2021 12:53:18 06/06/2022 [id number] Exercise advised Low cholesterol diet advised Low sodium diet advised. [email or web address] Not available 06/06/2022 11:43:37 12/05/2022 [id number] Weight loss 20 pounds Exercise advised Low cholesterol diet advised Low sodium diet advised. [email or web address] Not available 12/05/2022 11:12:30 06/22/2023 [id number] Exercise advised Low cholesterol diet advised Low sodium diet advised. [email or web address] Not available 06/22/2023 12:07:32 12/12/2023 [id number] Weight loss 20 pounds Exercise advised Low cholesterol diet advised Low sodium diet advised. [email or web address] Not available 12/12/2023 09:23:23 Reason for Referral None Reported. Results Created Date Observation Date Name Description Value Unit Range Abnormal Flag Note LastModifiedBy Organization Detail LastModifiedTime 02/25/2001/27/2022 US, doppl er, arter ial No observ ation record ed. Not Available 2021 12:06:22 05/29/20 22 05/20/2022 exerc ise stres s test No observ ation record ed. Not Available 2021 13:41:53 06/10/2006/06/2022 elect rocar diogr am No observ ation record ed. Not Available 2021 12:29:21 07/08/20 22 07/02/2022 US, echoc ardio gram No observ ation record ed. [email or web address] Not Available 2022 14:53:15 12/09/19 23 12/05/2022 elect rocar diogr am No observ ation record ed. Not Available 2022 10:41:00 06/24/20 23 06/22/2023 elect rocar diogr am No observ ation record ed. Not Available 2022 15:29:07 12/23/19 24 12/15/2023 exerc ise stres s test No observ ation record ed. Not Available 2023 14:41:31 Result Notes None recorded. Problems Name Problem SNOMED Code Status Onset Date Resolution Date Notes Provider Name and Address Organization Details Recorded Time Peripheral vascular disease 263037984 Active 2022 Radha Escobar [facility] [place], [place] - [facility] 3 11:43:48 Essential hypertension 73770335 Active 2016 Radha Escobar [facility] [place], [place] - [facility] 3 11:43:00 Hypercholester olemia 63434432 Active 2016 Sharonjaja Omalley [facility], [place] - [facility] 7 12:49:44 Sleep apnea 39138457 Active 2016 Radha Escobar [facility] [place], [place] - [facility] 3 11:43:02 Cough 82971870 Active 2016 Sharonjaja Omalley [facility] [place], [place] - [facility] 7 12:50:05 Atrial fibrillation 85684051 Active 2016 Radha Escobar [facility] [place], [place] - [facility] 7 16:06:35 Myocardial infarction 04046155 Active 2016 Radha Escobar [facility] [place], [place] - [facility] 7 16:06:49 Type 2 diabetes mellitus without complication 425986181 Active 2016 Radha Escobar [facility], [place] [facility] 3 11:43:38 Obesity 725519532 Active 2017 Radha Escobar [facility] [place], [place] - [facility] 8 16:39:04 Problem Notes None recorded. Procedures Surgical History Date Name Laterality Status Provider Name and Address Organization Details Recorded Time 03/17/20 17 Cardiac Catheterization completed Sharon Omalley [place] [facility] 04/07/2017 12:52:15 Imaging Results Imaging Date Name Status LastModified by Organization Details LastModified Time 01/27/2022 US, doppler, arterial completed Information not available 02/24/2022 12:06:22 05/20/2022 exercise stress test completed Info rmation not available 05/29/2022 13:41:53 06/06/2022 electrocardiogram completed Informa tion not available 06/10/2022 12:29:21 07/02/2022 US, echocardiogram completed esto Inform ation not available 11/27/2022 14:53:15 12/05/2022 electrocardiogram completed [email or web address] Informa tion not available 12/08/2022 10:41:00 06/22/2023 electrocardiogram completed Informa tion not available 06/24/2023 15:29:07 12/15/2023 exercise stress test completed [facility] Info rmation not available 12/23/2023 14:41:31 Procedure Notes None recorded. Medical Equipment None Reported. Allergies No known drug allergies Medications Name Sig Start Date Stop Date Status Note LastModified by Organization Details LastModified Time Prescripti on - Prior Authorizat ion Request active Not Available Not Available Not Available losartan 50 mg tablet TAKE 1 TABLET BY MOUTH EVERY DAY 04/04 completed Not Available Not Available Not Available atorvastat in 20 mg tablet TAKE 1 TABLET BY MOUTH ONCE DAILY DIRECTED active Not Available Not Available No t Available diltiazem ER 180 mg capsule,24 hr,extende d release Take 1 capsule every day by oral route. 08/21 completed pt not taking 08/21/20 sp Not Available Not Available Not Available aspirin 325 mg tablet Take 1 tablet every day by oral route. active Not Available Not Available No t Available metoprolol tartrate 100 mg tablet TAKE 1 TABLET BY MOUTH TWICE DAILY active Not Available Not Available No t Available diltiazem CD 240 mg capsule,ex tended release 24 hr Take 1 capsule every day by oral route. 11/29 completed Not Available Not Available Not Available lisinopril 20 mg tablet Take 1 tablet every day by oral route. 09/15 completed Not Available Not Available Not Available diltiazem ER 240 mg capsule,24 hr,extende d release TAKE 1 CAPSULE BY MOUTH ONCE DAILY active Not Available Not Available No t Available clopidogre l 75 mg tablet TAKE 1 TABLET BY MOUTH DAILY 06/18 completed Not Available Not Available Not Available Aspir-Low 81 mg tablet,del ayed release Take 1 tablet every day by oral route as directed . 06/18 completed Not Available Not Available Not Available ciprofloxa bradford 500 mg tablet TAKE 1 TABLET BY MOUTH TWICE DAILY 11/29 completed Not Available Not Available Not Available tramadol 50 mg tablet TAKE 1 TABLET BY MOUTH EVERY 6 HOURS NEEDED FOR PAIN active Not Available Not Available No t Available famotidine 20 mg tablet Take 1 tablet twice a day by oral route as directed . active Not Available Not Available No t Available diltiazem ER 120 mg capsule,24 hr,extende d release TAKE 1 CAPSULE BY MOUTH ONCE DAILY 12/19 completed Not Available Not Available Not Available hydrocodon e 7.5 mg-acetami nophen 325 mg tablet Take 1 tablet every 6 hours by oral route at bedtime. 04/04 completed NO LONGER TAKING; AL 8 Not Available Not Available Not Available lisinopril 10 mg tablet Take 1 tablet every day by oral route. 06/02 completed Not Available Not Available Not Available metoprolol tartrate 50 mg tablet Take 1 tablet twice a day by oral route as directed . 11/15 completed Not Available Not Available Not Available diclofenac sodium 75 mg tablet,del ayed release Take 1 tablet twice a day by oral route as directed . 05/12 completed Not Available Not Available Not Available albuterol sulfate HFA 90 mcg/actuat ion aerosol inhaler INHALE 1 TO 2 PUFFS BY MOUTH EVERY 4 TO 6 HOURS NEEDED FOR SHORTNES S OF BREATH FOR WHEEZING active Not Available Not Available No t Available losartan 100 mg tablet TAKE 1 TABLET BY MOUTH ONCE DAILY DIRECTED active Not Available Not Available No t Available ASA Buff (Mag Carb-Al Glyc) 325 mg tablet Take 1 tablet every day by oral route. 06/18 completed Not Available Not Available Not Available diltiazem ER 240 mg tablet,ext ended release 24 hr Take 1 tablet every day by oral route at bedtime. 07/29 completed Not Available Not Available Not Available duloxetine 20 mg capsule,de layed release TAKE 1 CAPSULE BY MOUTH IN THE EVENING active Not Available Not Available No t Available duloxetine 30 mg capsule,de layed release TAKE 1 CAPSULE BY MOUTH IN THE EVENING active Not Available Not Available No t Available fenofibrat e micronized 48 mg tablet Take 1 tablet every day by oral route in the morning. 03/01 completed Not Available Not Available Not Available fenofibrat e nanocrysta llized 48 mg tablet TAKE 1 TABLET BY MOUTH ONCE DAILY DIRECTED active Not Available Not Available No t Available rivaroxaba n 20 mg tablet Take 1 tablet every day by oral route in the evening. 05/12 completed Not Available Not Available Not Available Jardiance 10 mg tablet Take 1 tablet every day by oral route. 2023 active Not Available Not Available Not Avai lable Vitals Date Recorded Body height Body mass index (BMI) Body weight Heart rate Oxygen saturation Oxygen saturation in Arterial blood by Pulse oximetry Systolic blood pressure Diastolic blood pressure Provider Name and Address Organization Details Last Updated DateTime 2 187.96 cm 44.9 kg/m2 551616. 33 g 69 /min 95 % 95 % 132 mm[Hg] 78 mm[Hg] Julián Rosas [facility] 2 12:25:02 Date Recorded Body height Body mass index (BMI) Body weight Heart rate Respiratory rate Oxygen saturation Oxygen saturation in Arterial blood by Pulse oximetry Systolic blood pressure Diastolic blood pressure Provider Name and Address Organization Details Last Updated DateTime 2 187.96 cm 45.6 kg/m2 179192. 29 g 72 /min 16 /min 94 % 94 % 118 mm[Hg] 72 mm[Hg] Julián Rosas [facility] 2 11:24:59 Date Recorded Body height Body mass index (BMI) Body weight Oxygen saturation Oxygen saturation in Arterial blood by Pulse oximetry Heart rate Systolic blood pressure Diastolic blood pressure Provider Name and Address Organization Details Last Updated DateTime 3 187.96 cm 48.5 kg/m2 748033. 92 g 94 % 94 % 63 /min 126 mm[Hg] 70 mm[Hg] WHITNEY PEREZ [facility] [place] 3 10:45:27 Date Recorded Body height Body mass index (BMI) Body weight Heart rate Respiratory rate Oxygen saturation Oxygen saturation in Arterial blood by Pulse oximetry Systolic blood pressure Diastolic blood pressure Provider Name and Address Organization Details Last Updated DateTime 3 187.96 cm 49.2 kg/m2 937880. 88 g 84.99 /min 16 /min 97 % 97 % 142 mm[Hg] 84 mm[Hg] Julián Rosas [facility] [place] 3 11:39:06 Date Recorded Body height Body mass index (BMI) Body weight Heart rate Oxygen saturation Oxygen saturation in Arterial blood by Pulse oximetry Systolic blood pressure Diastolic blood pressure Provider Name and Address Organization Details Last Updated DateTime 4 187.96 cm 50.4 kg/m2 756218. 72 g 52 /min 97 % 97 % 132 mm[Hg] 80 mm[Hg] Magdalena Quarles [facility] 4 08:57:03 Social History Question Answer Notes LastModified by Organizat ion Details LastModified Time Tobacco Smoking Status Former Smoker Not Available [facility] 06/19/2020 03:30:41 What Is Your Level Of Alcohol Consumption? Occasional [id number] Information not available 06/19/2020 What Is Your Level Of Caffeine Consumption? Moderate [id number] Information not available 06/19/2020 How Much Tobacco Do You Chew? None [id number] Information not available 06/19/2020 What Type Of Diet Are You Following? REGULAR [id number] Information not available 06/19/2020 Which Illicit Or Recreational Drugs Have You Used? No [id number] Information not available 06/19/2020 Do You Or Have You Ever Used E-cigarettes Or Vape? 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 With Others [email or web address] Information not available 04/07/2017 Marital Status [email or web address] Informatio n not available 04/07/2017 What Was The Date Of Your Most Recent Tobacco Screening? 09/15/2018 [id number] Information not available 06/19/2020 Do You Or Have You Ever Used Smokeless Tobacco? Former Smokeless Tobacco User [id number] Information not available 06/19/2020 How Much Tobacco Do You Smoke? 0.5 PPD [id number] Information not available 06/19/2020 General Stress Level Low Information not available 04/07/2017 Sex: Unknown Functional Status Question Answer Note LastModified by Organization D etails LastModified Time What is your exercise level? None [id number] Information not available 06/19/2020 Mental Status None recorded. Family History Nothing Reported. Medical History Condition Response Diabetes Y Atrial Fibrillation Y Hypertension Y Sleep Apnea Y High Cholesterol Y Past Encounters Encounter ID Performer Location Encounter Start Date Encounter Closed Date Diagnosis/Indication Diagnosis SNOMED-CT Code Diagnosis ICD10 Code Diagnosis Note [id number] Michael Vyas MD [facility] [address] [place] [address] 04/07/2017 11:37:18 04/07/2017 15:16:13 Sleep apnea 13539364 G47.30 On Cpap Essential hypertension 79935397 I10 Patient's blood pressure is {{well-con trolled* s omewhat well-contr olled not well-contr olled}} on present medical therapy. Patient is {{tolerati ng, without difficulty ,* having side effects with}} the current medication s. I have {{not made* made the following} } changes to the current regimen. {{ Patient is advised to maintain a blood pressure diary.}} Patient was advised to eat a low-sodium diet (2 grams sodium or less daily). Atrial fibrillation 4943 6004 I48.91 He is in NSR nowHe needs to be on Anti coagulatio nOn Toprol and cardizem Myocardial infarction 22 494010 I21.3 s/p Non-stemiN eeds to be on ASA, and plavixdue to the need for Plavix and Xarelto, asa well as asa, he would be a candidate for Justin trialthis was discussed with vick and hs , they do no want that. Type 2 nayla betes mellitus without complication 231426195 E11.9 [id number] Michael Vyas MD [facility] [address] [place] [address] 05/12/2017 17:01:02 05/13/2017 09:35:08 Essential hypertension 70744893 I10 Patient's blood pressure is {{well-con trolled* s omewhat well-contr olled not well-contr olled}} on present medical therapy. Patient is {{tolerati ng, without difficulty ,* having side effects with}} the current medication s. I have {{not made* made the following} } changes to the current regimen. {{ Patient is advised to maintain a blood pressure diary.}} Patient was advised to eat a low-sodium diet (2 grams sodium or less daily). Sleep apnea 72392297 G47 .30 On Cpap Atrial fibrillation 4943 6004 I48.91 He is in NSR nowOn Toprol and cardizem Myocardial infarction 22 883825 I21.3 s/p Non-stemiN eeds to be on ASA, and plavix, will DC Xarelto as he is in NSR now Type 2 nayla betes mellitus without complication 807728016 E11.9 treatment and evaluation by primary care doctor Obesity 645002382 E66.9 [id number] Michael Vyas MD [facility] [address] [place] [address] 08/24/2017 16:40:08 08/25/2017 09:53:52 Essential hypertension 83871901 I10 Sleep apnea 66605921 G47 .30 On Cpap Atrial fibrillation 4943 6004 I48.91 He is in NSR nowOn Toprol and cardizem Myocardial infarction 22 871604 I21.3 s/p Non-stemiN eeds to be on ASA, and plavix, as he is in NSR now Type 2 nayla betes mellitus without complication 800912158 E11.9 treatment and evaluation by primary care doctor Obesity 844508180 E66.9 20 lb. weight loss recommende d over the next 2 months. [id number] Chepe Henry [facility] [address] [place] [address] 03/01/2018 10:07:07 03/04/2018 15:25:17 Essential hypertension 24235718 I10 Patient's blood pressure is {{well-con trolled* s omewhat well-contr olled not well-contr olled}} on present medical therapy. Patient is {{tolerati ng, without difficulty ,* having side effects with}} the current medication s. I have {{not made* made the following} } changes to the current regimen. {{ Patient is advised to maintain a blood pressure diary.*}} Patient was advised to eat a low-sodium diet (2 grams sodium or less daily). Sleep apnea 63893808 G47 .30 On Cpap. Tolerates. Atrial fibrillation 4943 6004 I48.91 He is in NSR now. On Toprol and cardizem. Has [id number] Sc risk score of 3, with unadjusted CVA risk of 3.2%/year. Obtain 48 hour Holter as afib was reportedly only at time of NM. Consider Xarelto if afib on Holter. Myocardial infarction 22 723237 I21.3 s/p Non-stemi 03/01/18 Needs to be on ASA, and Plavix, as he is in NSR now. Had LDL 69 on statin 04/2018. Obtain repeat FLP. Type 2 nayla betes mellitus without complication 026000531 E11.9 treatment and evaluation by primary care doctor Obesity 970516775 E66.9 20 lb. weight loss recommende d over the next 2 months. [id number] Chepe Henry [facility] [address] [place] [address] 03/31/2018 14:20:13 08/20/2018 10:32:00 Essential hypertension 39252279 I10 Mild concentric left ventricula r hypertroph y. Patient's blood pressure is {{well-con trolled so mewhat well-contr olled* not well-contr olled}} on present medical therapy. Patient is {{tolerati ng, without difficulty ,* having side effects with}} the current medication s. I have {{not made made the following* }} changes to the current regimen. {{ Patient is advised to maintain a blood pressure diary.*}} Patient was advised to eat a low-sodium diet (2 grams sodium or less daily). Began lisinopril 10 mg qd 03/31/18.BM P/Mg 3 wks. Sleep apnea 61730837 G47 .30 On Cpap. Tolerates. Atrial fibrillation 4943 6004 I48.91 He is in NSR now. On Toprol and cardizem. Has [id number] Sc risk score of 3, with unadjusted CVA risk of 3.2%/year. Had 48Hr Holter Monitor on 03/29/18 showed NSR, Sinus Tachycardi a and Sinus Arrhythma. No atrial fibrillati on episodes. Had considered Xarelto if afib on Holter but since no afib detected since NM, continue ASA 81 mg for afib and CAD, with Plavix since s/p NM. Myocardial infarction 22 026427 I21.3 s/p Non-stemi 03/01/18 Needs to be on ASA, and Plavix, as he is in NSR now. Had LDL 69 on statin 04/2018. Obtain repeat FLP. Type 2 nayla betes mellitus without complication 597920013 E11.9 treatment and evaluation by primary care doctor Obesity 801480623 E66.9 20 lb. weight loss recommende d over the next 2 months. Hypercholesterolemia 136 10628 E78.00 Needs to keep LDL less than 70, and HDL more than : LDL 69. Obtain FLP. [id number] Chepe Henry [facility] [address] [place] [address] 06/02/2018 13:31:11 06/02/2018 14:42:34 Essential hypertension 41460129 I10 Mild concentric left ventricula r hypertroph y. Patient's blood pressure is {{well-con trolled so mewhat well-contr olled* not well-contr olled}} on present medical therapy. Patient is {{tolerati ng, without difficulty ,* having side effects with}} the current medication s. I have {{not made made the following* }} changes to the current regimen. {{ Patient is advised to maintain a blood pressure diary.*}} Patient was advised to eat a low-sodium diet (2 grams sodium or less daily). Began lisinopril 10 mg qd 03/31/18. Increased to lisinopril 20 mg qd 06/02/18. BMP/Mg 3 wks. Sleep apnea 59309216 G47 .30 Mild pulm. HTN. On Cpap. Tolerates. Atrial fibrillation 4943 6004 I48.91 He is in NSR now. On Toprol and cardizem. Has [id number] Sc risk score of 3, with unadjusted CVA risk of 3.2%/year. Had 48Hr Holter Monitor on 03/29/18 showed NSR, Sinus Tachycardi a and Sinus Arrhythma. No atrial fibrillati on episodes. Had considered Xarelto if afib on Holter but since no afib detected since NM, continue ASA 81 mg for afib and CAD, with Plavix since s/p NM. Myocardial infarction 22 015351 I21.3 s/p Non-STEMI (03/2017). Needs to be on ASA, and Plavix, as he is in NSR now. Had LDL 63 on statin 04/2018. Type 2 nayla betes mellitus without complication 916433775 E11.9 treatment and evaluation by primary care doctor Obesity 138710644 E66.9 20 lb. weight loss recommende d over the next 2 months. Hypercholesterolemia 136 88748 E78.00 Needs to keep LDL less than 70, and HDL more than 409/2016: LDL 69. Had 04-23-2018 : LDL: 63 Continue statin. [id number] Chepe Herny [facility] [address] [place] [address] 09/15/2018 11:21:07 09/15/2018 12:57:26 Essential hypertension 24890978 I10 Mild concentric left ventricula r hypertroph y. Patient's blood pressure is {{well-con trolled so mewhat well-contr olled* not well-contr olled}} on present medical therapy. Patient is {{tolerati ng, without difficulty ,* having side effects with}} the current medication s. I have {{not made made the following* }} changes to the current regimen. {{ Patient is advised to maintain a blood pressure diary.*}} Patient was advised to eat a low-sodium diet (2 grams sodium or less daily). Began lisinopril 10 mg qd 03/31/18. Increased to lisinopril 20 mg qd 06/02/18 with subsequent cough after taking higher dose. 07/22/18:S OD 140,K 5.1,CL 104,CO2 26,GLU 103,BUN 19,CR 0.9. Changed to losartan 50 mg qd 09/15/18 Obtain BMP, Mg in 3 weeks to f/u mild increased K. Sleep apnea 02872313 G47 .30 Mild pulm. HTN. On Cpap. Tolerates. Atrial fibrillation 4943 6004 I48.91 He is in NSR now. On Toprol and cardizem. Has [id number] Sc risk score of 3, with unadjusted CVA risk of 3.2%/year. Had 48Hr Holter Monitor on 03/29/18 showed NSR, Sinus Tachycardi a and Sinus Arrhythma. No atrial fibrillati on episodes. Had considered Xarelto if afib on Holter but since no afib detected since NM, continue ASA 81 mg for afib and CAD, with Plavix since s/p NM. Patient agrees with no anticoagul ant after discussing risks and benefits. Myocardial infarction 22 919537 I21.3 s/p Non-STEMI (03/2017). Needs to be on ASA, and Plavix, as he is in NSR now. Had LDL 63 on statin 04/2018. Type 2 nayla betes mellitus without complication 246943700 E11.9 treatment and evaluation by primary care doctor Obesity 658931789 E66.9 20 lb. weight loss recommende d over the next 2 months. Hypercholesterolemia 136 64324 E78.00 Needs to keep LDL less than 70, and HDL more than /2016: LDL 69. Had 04-23-2018 : LDL: 63 Continue statin. [id number] Chepe Henry [facility] [address] [place] [address] 11/15/2018 14:35:47 11/15/2018 16:30:35 Essential hypertension 48175464 I10 Mild concentric left ventricula r hypertroph y. Patient's blood pressure is {{well-con trolled so mewhat well-contr olled* not well-contr olled}} on present medical therapy. Patient is {{tolerati ng, without difficulty ,* having side effects with}} the current medication s. I have {{not made made the following* }} changes to the current regimen. {{ Patient is advised to maintain a blood pressure diary.*}} Patient was advised to eat a low-sodium diet (2 grams sodium or less daily). Began lisinopril 10 mg qd 03/31/18. Increased to lisinopril 20 mg qd 06/02/18 with subsequent cough after taking higher dose. 07/22/18:S OD 140,K 5.1,CL 104,CO2 26,GLU 103,BUN 19,CR 0.9. Changed to losartan 50 mg qd 09/15/18 Obtained BMP, Mg to f/u mildly increased K:10/11/18 : K 3.9, CR 1.0. Increased to metoprolol tartate 100 mg bid 11/15/18. Sleep apnea 27443715 G47 .30 Mild pulm. HTN. On Cpap. Tolerates. Atrial fibrillation 4943 6004 I48.91 He is in regular rhythm now. On Toprol and cardizem. Has [id number] Sc risk score of 3, with unadjusted CVA risk of 3.2%/year. Had 48Hr Holter Monitor on 03/29/18 showed NSR, Sinus Tachycardi a and Sinus Arrhythma. No atrial fibrillati on episodes. Had considered Xarelto if afib on Holter but since no afib detected since [place], continue ASA 81 mg for afib and CAD, with Plavix since s/p NM. Patient agrees with no anticoagul ant after discussing risks and benefits. Myocardial infarction 22 [id number] I21.3 s/p Non-STEMI (03/2017). No PCI at that time. Needs to be on ASA, and Plavix, as he is in NSR now. Had LDL 63 on statin 04/2018. Type 2 nayla betes mellitus without complication [id number] E11.9 treatment and evaluation by primary care doctor Obesity 136454111 E66.9 20 lb. weight loss recommende d over the next 2 months. Hypercholesterolemia 136 00809 E78.00 Needs to keep LDL less than 70, and HDL more than : LDL 69. Had 04-23-2018 : LDL: 63 Continue [facility]. [id number] [address] [place] [address] 04/04/2019 10:46:13 04/04/2019 11:25:26 Myocardial infarction [id number] I21.3 s/p Non-STEMI (03/2017). No PCI at that time. Needs to be on ASA, and Plavix, as he is in NSR now. Had LDL 63 on statin 04/2018. Essential hypertension 49833941 I10 Mild concentric left ventricula r hypertroph y. Patient's blood pressure is {{well-con trolled so mewhat well-contr olled* not well-contr olled}} on present medical therapy. Patient is {{tolerati ng, without difficulty ,* having side effects with}} the current medication s. I have {{increase d losartan from 50 to 100 mg daily# not made made the following} } changes to the current regimen. {{ Patient is advised to maintain a blood pressure diary.*}} Patient was advised to eat a low-sodium diet (2 grams sodium or less daily). Began lisinopril 10 mg qd 03/31/18. Increased to lisinopril 20 mg qd 06/02/18 with subsequent cough after taking higher dose. 07/22/18:S OD 140,K 5.1,CL 104,CO2 26,GLU 103,BUN 19,CR 0.9. Changed to losartan 50 mg qd 09/15/18 Obtained BMP, Mg to f/u mildly increased K:10/11/18 : K 3.9, CR 1.0. Increased to metoprolol tartate 100 mg bid 11/15/18. Sleep apnea 81180838 G47 .30 Mild pulm. HTN. WIll repeat 2 D echo before next visit to reassess On Cpap. Tolerates. Atrial fibrillation 4943 6004 I48.91 He is in regular rhythm now. On Toprol and cardizem. Has [id number] Sc risk score of 3, with unadjusted CVA risk of 3.2%/year. Had 48Hr Holter Monitor on 03/29/18 showed NSR, Sinus Tachycardi a and Sinus Arrhythma. No atrial fibrillati on episodes. Had considered Xarelto if afib on Holter but since no afib detected since NM, continue ASA 81 mg for afib and CAD, with Plavix since s/p NM. Patient agrees with no anticoagul ant after discussing risks and benefits. Type 2 nayla betes mellitus without complication [id number] E11.9 treatment and evaluation by primary care doctor Obesity 362524703 E66.9 20 lb. weight loss recommende d over the next 2 months. Hypercholesterolemia 136 97242 E78.00 Needs to keep LDL less than 70, and HDL more than /2016: LDL 69. Had 04-23-2018 : LDL: 63 Continue statin. [id number] Michael Vyas MD [facility] [address] [place] [address] 07/01/2019 10:23:23 07/03/2019 20:40:07 Myocardial infarction [id number] I21.3 s/p Non-STEMI (03/2017). No PCI at that time. Needs to be on ASA, as he is in NSR now. Will d/c Plavix today ( 9). Had LDL 63 on statin 04/2018. Essential hypertension 30981746 I10 Mild concentric left ventricula r hypertroph y. Patient's blood pressure is {{well-con trolled so mewhat well-contr olled* not well-contr olled}} on present medical therapy. Patient is {{tolerati ng, without difficulty ,* having side effects with}} the current medication s. I have {{increase d losartan from 50 to 100 mg daily# not made made the following} } changes to the current regimen. {{ Patient is advised to maintain a blood pressure diary.*}} Patient was advised to eat a low-sodium diet (2 grams sodium or less daily). Began lisinopril 10 mg qd 03/31/18. Increased to lisinopril 20 mg qd 06/02/18 with subsequent cough after taking higher dose. 07/22/18:S OD 140,K 5.1,CL 104,CO2 26,GLU 103,BUN 19,CR 0.9. Changed to losartan 50 mg qd 09/15/18 Obtained BMP, Mg to f/u mildly increased K:10/11/18 : K 3.9, CR 1.0. Increased to metoprolol tartate 100 mg bid 11/15/18. Sleep apnea 01863298 G47 .30 Mild pulm. On Cpap. Tolerates. Atrial fibrillation 4943 6004 I48.0 He is in regular rhythm now. On Toprol and cardizem. Full dose ASA. Has [id number] Sc risk score of 2. Had 48Hr Holter Monitor on 03/29/18 showed NSR, Sinus Tachycardi a and Sinus arrhythmia . No atrial fibrillati on episodes. Had considered Xarelto if afib on Holter but since no afib detected since NM, continue ASA 81 mg for afib and CAD, with Plavix since s/p NM. Patient agrees with no anticoagul ant after discussing risks and benefits. Type 2 nayla betes mellitus without complication 665867439 E11.9 treatment and evaluation by primary care doctor Obesity 069726441 E66.9 20 lb. weight loss recommende d over the next 2 months. Hypercholesterolemia 136 45164 E78.2 Needs to keep LDL less than 70, and HDL more than /2016: LDL 69. Had 04-23-2018 : LDL: 63 Continue Atorvastat in 20mg qhs 13863 Michael Vyas MD [facility] [address] [place] [address] 12/20/2019 12:58:15 12/20/2019 14:07:31 Myocardial infarction [id number] I21.3 s/p Non-STEMI (03/2017). No PCI at that time. Needs to be on ASA, as he is in NSR now. Will d/c Plavix today ( 9). Had LDL 63 on statin 04/2018. Essential hypertension 57832499 I10 Mild concentric left ventricula r hypertroph y. Home readings are elevated 150s/80s. Will increase Cardizem to 180 mg daily (12/20/2019) {{ Patient is advised to maintain a blood pressure diary.*}} Patient was advised to eat a low-sodium diet (2 grams sodium or less daily). Had cough with Lisinopril . 07/22/18:S OD 140,K 5.1,CL 104,CO2 26,GLU 103,BUN 19,CR 0.9. Obtained BMP, Mg to f/u mildly increased K:10/11/18 : K 3.9, CR 1.0. Increased to metoprolol tartate 100 mg bid 11/15/18. Sleep apnea 04074519 G47 .30 Mild pulm. On Cpap. Tolerates. Atrial fibrillation 4943 6004 I48.0 He is in regular rhythm now. On Toprol and cardizem. Full dose ASA. Has [id number] Sc risk score of 2. Had 48Hr Holter Monitor on 03/29/18 showed NSR, Sinus Tachycardi a and Sinus arrhythmia . No atrial fibrillati on episodes. Had considered Xarelto if afib on Holter but since no afib detected since NM, continue ASA 81 mg for afib and CAD, with Plavix since s/p NM. Patient agrees with no anticoagul ant after discussing risks and benefits. Type 2 nayla betes mellitus without complication 423984121 E11.9 treatment and evaluation by primary care doctor Obesity 031766334 E66.9 20 lb. weight loss recommende d over the next 2 months. Hypercholesterolemia 136 68824 E78.2 Needs to keep LDL less than 70, and HDL more than : LDL 69. Had 04-23-2018 : LDL: 63 Continue Atorvastat in 20mg qhs 14221 Michael Vyas MD [facility] [address] [place] [address] 06/26/2020 11:48:43 06/26/2020 12:54:55 Myocardial infarction 27602364 I21.3 06/26/2020 s/p Non-STEMI (03/2017). No PCI at that time. Currently on ASA 325, plavix d/cdTreadm ill Myoview Stress test, has high [place] Risk score. Has Known CAD, or CAD risk equivalent . To look for any ischemia. Previously Needs to be on ASA, as he is in NSR now. Will d/c Plavix today ( 9). Had LDL 63 on statin 04/2018. Essential hypertension 10521238 I10 06/26/20 Elevated today in the office. Reports compliance with medication s, including cardizem increase. Today we will increase Cardizem to 240 mg. Mild concentric left ventricula r hypertroph y. Previously Home readings are elevated 150s/80s. Will increase Cardizem to 180 mg daily (12/20/2019) {{ Patient is advised to maintain a blood pressure diary.*}} Patient was advised to eat a low-sodium diet (2 grams sodium or less daily). Had cough with Lisinopril . 07/22/18:S OD 140,K 5.1,CL 104,CO2 26,GLU 103,BUN 19,CR 0.9. Obtained BMP, Mg to f/u mildly increased K:10/11/18 : K 3.9, CR 1.0. Increased to metoprolol tartate 100 mg bid 11/15/18. Sleep apnea 29678136 G47 .30 06/26/2020 Mild pulm. On Cpap. Reports nightly compliance . Dr. Mahmood. Atrial fibrillation 4943 6004 I48.0 06/26/20He is in regular rhythm now. On Toprol and cardizem. Full dose ASA. Has [id number] Sc risk score of 2. Had 48Hr Holter Monitor on 03/29/18 showed NSR, Sinus Tachycardi a and Sinus arrhythmia . No atrial fibrillati on episodes. Had considered Xarelto if afib on Holter but since no afib detected since [place], continue ASA 81 mg for afib and CAD, with Plavix since s/p NM. Patient agrees with no anticoagul ant after discussing risks and benefits. Type 2 nayla betes mellitus without complication 130771656 E11.9 06/26/2020 treatment and evaluation by primary care doctor Obesity 167651222 E66.9 06/26/2020 lb. weight loss recommende d over the next 2 months. Hypercholesterolemia 136 99098 E78.2 Needs to keep LDL less than 70, and HDL more than : LDL 69. Had 04-23-2018 : LDL: 63 Continue Atorvastat in 20mg qhs [id number] Michael Vyas MD [facility] [address] [place] [address] 08/21/2020 15:32:28 08/21/2020 16:24:36 Myocardial infarction 43509974 I21.3 s/p NSTEMI (03/2017) [facility] 04/03/2017 : Mild to moderate coronary disease with single vessel disease in the LAD noted. Normal left ventricula r systolic function. TDM 07/11/2020 : Positive stress test. Normal LV systolic function. Reversible defect consistent with ischemia in anterior area. Exercise tolerance: poor. LVEF 58% He remains asymptomat ic at this time. We will continue maximal medical treatment and consider LHC is symptoms occur. Essential hypertension 54666256 I10 Fair control on current regimen Sleep apnea 95435220 G47 .30 Compliant with nightly CPAP use Atrial fibrillation 4943 6004 I48.0 [id number] Sc score = 2 Remains asymptomat icin NSR 08/21/2020 Rate controlled with metoprolol and Cardizem 48 hour holter monitor on 03/29/2018 : Normal sinus rhythm. Sinus bradycardi a. Sinus arrhythmia . Rare PVC's. Occasional PAC's Previously cconsidere d Xarelto if AFib on Holter but since no AFib detected since NM, continue ASA 81mg for AFib. Type 2 nayla betes mellitus without complication 639086920 E11.9 Borderline ; treatment and evaluation by primary care doctor. Discussed importance of adequate glycemic control to minimize cardiovasc ular disease progressio n, A1C goal of < 7% for type 2 DM. Obesity 343738085 E66.9 20lb weight loss recommende d over the next 2 months Hypercholesterolemia 136 04094 E78.2 Needs to keep LDL less than 70, and HDL more than 40. 04/23/2018 LDL 63Continue atorvastat in 20mgWill get fasting lipids for follow-up [id number] Mendoza Jean [facility] [address] [place] [address] 03/05/2021 11:50:33 03/06/2021 09:36:17 Essential hypertension 37605348 I10 Controlled on current regimen Sleep apnea 48201346 G47 .30 Compliant with nightly CPAP use Atrial fibrillation 4943 6004 I48.0 [id number] Sc score = 2Remains asymptomat icRate controlled with metoprolol and Cardizem 48 hour holter monitor 03/29/2018 : Normal sinus rhythm. Sinus bradycardi a. Sinus arrhythmia . Rare PVC's. Occasional PAC's Previously considered Xarelto if AFib on holter but since no AFib detected since NM, continue ASA 81mg for AFib. Type 2 nayla betes mellitus without complication 395660942 E11.9 Borderline ; treatment and evaluation by primary care doctor. Discussed importance of adequate glycemic control to minimize cardiovasc ular disease progressio n, A1C goal of < 7% for type 2 DM. Obesity 648551324 E66.9 20 lb weight loss recommende d over the next 2 months Hypercholesterolemia 136 98207 E78.2 Needs to keep LDL less than 70, and HDL more than 40. 018 LDL 63Continue atorvastat in 20mgWill get fasting lipids for follow-up Myocardial infarction 22 600601 I21.3 s/p NSTEMI (03/2017) [facility] 04/03/2017 : Mild to moderate coronary disease with single vessel disease in the LAD noted. Normal left ventricula r systolic function. TDM 07/11/2020 : Positive stress test. Normal LV systolic function. Reversible defect consistent with ischemia in anterior area. Exercise tolerance: poor. LVEF 58% He remains asymptomat ic at this time. We will continue maximal medical treatment and consider [facility] is symptoms occur. [address] petra bruno [facility] [place] [address] 06/18/2021 11:50:08 06/18/2021 13:00:19 Myocardial infarction 57568060 I21.3 s/p NSTEMI (03/2017) [facility] 04/03/2017 : Mild to moderate coronary disease with single vessel disease in the LAD noted. Normal left ventricula r systolic function. TDM 07/11/2020 : Positive stress test. Normal LV systolic function. Reversible defect consistent with ischemia in anterior area. Exercise tolerance: poor. LVEF 58% He remains asymptomat ic at this time. We will continue maximal medical treatment and consider LHC is symptoms occur. Went [place] Afib with RVR last week. Stable at this time. Discussed with Dr Vyas , continue with ASA 325 mg CHADS VAS 2. More than likely related to non complkianc e with meds. Essential hypertension 18430731 I10 Controlled on current regimen Sleep apnea 18516471 G47 .30 Compliant with nightly CPAP use Atrial fibrillation 4943 6004 I48.0 [id number] Sc score = 2Remains asymptomat icRate controlled with metoprolol and Cardizem 48 hour holter monitor 03/29/2018 : Normal sinus rhythm. Sinus bradycardi a. Sinus arrhythmia . Rare PVC's. Occasional PAC's Previously considered Xarelto if AFib on holter but since no AFib detected since [place] he was taken off . but now with new change, continue ASA 325 mg for AFib. F/U 3 months Type 2 nayla betes mellitus without complication 263749822 E11.9 Borderline ; treatment and evaluation by primary care doctor. Discussed importance of adequate glycemic control to minimize cardiovasc ular disease progressio n, A1C goal of < 7% for type 2 DM. Obesity 912723449 E66.9 20 lb weight loss recommende d over the next 2 months Hypercholesterolemia 136 58469 E78.2 Needs to keep LDL less than 70, and HDL more than 40.LIPID PANEL, BLOOD 03/05/2021 12:00am 03/05/2021 : Cholestero l 123,Trigly cerides 98,HDL 37,,LDL 61Continue atorvastat in 20mg 14873 Michael Vyas MD [facility] [address] [place] [address] 08/30/2021 11:23:56 08/30/2021 12:37:22 Myocardial infarction 04980509 I21.3 s/p NSTEMI (03/2017) [facility] 04/03/2017 : Mild to moderate coronary disease with single vessel disease in the LAD noted. Normal left ventricula r systolic function. TDM 07/11/2020 : Positive stress test. Normal LV systolic function. Reversible defect consistent with ischemia in anterior area. Exercise tolerance: poor. LVEF 58% He remains asymptomat ic at this time. We will continue maximal medical treatment and consider LHC is symptoms occur. Went [place] Afib with RVR last week. Stable at this time. Discussed with Dr Vyas , continue with ASA 325 mg CHADS VAS 2. More than likely related to non complkianc e with meds. Essential hypertension 57555081 I10 Controlled on current regimen Sleep apnea 50654744 G47 .30 Compliant with nightly CPAP use Atrial fibrillation 4943 6004 I48.0 [id number] Sc score = 2Remains asymptomat icRate controlled with metoprolol and Cardizem 48 hour holter monitor 03/29/2018 : Normal sinus rhythm. Sinus bradycardi a. Sinus arrhythmia . Rare PVC's. Occasional PAC's Previously considered Xarelto if AFib on holter but since no AFib detected since [place] he was taken off . but now with new change, continue ASA 325 mg for AFib. F/U 3 months Type 2 nayla betes mellitus without complication 408609838 E11.9 Borderline ; treatment and evaluation by primary care doctor. Discussed importance of adequate glycemic control to minimize cardiovasc ular disease progressio n, A1C goal of < 7% for type 2 DM. Obesity 558725514 E66.9 20 lb weight loss recommende d over the next 2 months Hypercholesterolemia 136 79575 E78.2 Needs to keep LDL less than 70, and HDL more than 40.LIPID PANEL, BLOOD 03/05/2021 12:00am 03/05/2021 : Cholestero l 123,Trigly cerides 98,HDL 37,,LDL 61Continue atorvastat in 20mg 48583 Michael Vyas MD [facility] [address] [place] [address] 11/29/2021 12:11:49 11/29/2021 13:00:20 Myocardial infarction 47336166 I21.3 s/p NSTEMI (03/2017)T readmill Myoview Stress test, has high [place] Risk score. Has Known CAD, or CAD risk equivalent . To look for any ischemia. Essential hypertension 15956915 I10 Controlled on current regimen Sleep apnea 31722367 G47 .30 Compliant with nightly CPAP use Atrial fibrillation 4943 6004 I48.0 [id number] Sc score = 2Remains asymptomat icRate controlled with metoprolol and Cardizem 48 hour holter monitor 03/29/2018 : Normal sinus rhythm. Sinus bradycardi a. Sinus arrhythmia . Rare PVC's. Occasional PAC's Previously considered Xarelto if AFib on holter but since no AFib detected since [place] he was taken off . but now with new change, continue ASA 325 mg for AFib. F/U 3 months Type 2 nayla betes mellitus without complication 826670413 E11.9 Borderline ; treatment and evaluation by primary care doctor. Discussed importance of adequate glycemic control to minimize cardiovasc ular disease progressio n, A1C goal of < 7% for type 2 DM. Obesity 928129915 E66.9 20 lb weight loss recommende d over the next 2 months Hypercholesterolemia 136 60991 E78.2 Needs to keep LDL less than 70, and HDL more than 40.LIPID PANEL, BLOOD 03/05/2021 12:00am 03/05/2021 : Cholestero l 123,Trigly cerides 98,HDL 37,,LDL 61Continue atorvastat in 20mg Peripheral vascular disease 328616778 I73.9 Will get arterial doppler, to evaluate severity of peripheral vascular disease 22663 Michael Vyas MD [facility] [place] [address] 06/06/2022 10:34:39 06/06/2022 11:52:45 Myocardial infarction 78544849 I21.3 s/p NSTEMI (03/2017)n egative stress test repeat echo Essential hypertension 91948332 I10 Controlled on current regimen Sleep apnea 66590026 G47 .30 Compliant with nightly CPAP use Atrial fibrillation 4943 6004 I48.0 [id number] Sc score = 2Remains asymptomat icRate controlled with metoprolol and Cardizem 48 hour holter monitor 03/29/2018 : Normal sinus rhythm. Sinus bradycardi a. Sinus arrhythmia . Rare PVC's. Occasional PAC's Previously considered Xarelto if AFib on holter but since no AFib detected since [place] he was taken off . but now with new change, continue ASA 325 mg for AFib. F/U 3 months Type 2 nayla betes mellitus without complication 854485244 E11.9 Borderline ; treatment and evaluation by primary care doctor. Discussed importance of adequate glycemic control to minimize cardiovasc ular disease progressio n, A1C goal of < 7% for type 2 DM. Obesity 740374567 E66.9 20 lb weight loss recommende d over the next 2 months Hypercholesterolemia 136 99162 E78.2 Needs to keep LDL less than 70, and HDL more than 40.LIPID PANEL, BLOOD 03/05/2021 12:00am 03/05/2021 : Cholestero l 123,Trigly cerides 98,HDL 37,,LDL 61Continue atorvastat in 20mgrepeat blood work Peripheral vascular disease 919130090 I73.9 normal ADOLFO done 01/2022 12571 Michael Vyas MD [facility] [address] [place] [address] 12/05/2022 10:17:49 12/05/2022 11:16:16 Myocardial infarction 84567332 I21.3 s/p NSTEMI (03/2017)n egative stress test repeat echo Essential hypertension 94479961 I10 Controlled on current regimen Sleep apnea 47107199 G47 .30 Compliant with nightly CPAP use Atrial fibrillation 4943 6004 I48.0 [id number] Sc score = 2Remains asymptomat icRate controlled with metoprolol and Cardizem 48 hour holter monitor 03/29/2018 : Normal sinus rhythm. Sinus bradycardi a. Sinus arrhythmia . Rare PVC's. Occasional PAC's Previously considered Xarelto if AFib on holter but since no AFib detected since [place] he was taken off . but now with new change, continue ASA 325 mg for AFib. F/U 3 months Type 2 nayla betes mellitus without complication 272842985 E11.9 Borderline ; treatment and evaluation by primary care doctor. Discussed importance of adequate glycemic control to minimize cardiovasc ular disease progressio n, A1C goal of < 7% for type 2 DM. Obesity 301125508 E66.9 20 lb weight loss recommende d over the next 2 months Hypercholesterolemia 136 96662 E78.2 Needs to keep LDL less than 70, and HDL more than 40.LIPID PANEL, BLOOD 03/05/2021 12:00am 03/05/2021 : Cholestero l 123,Trigly cerides 98,HDL 37,,LDL 61Continue atorvastat in 20mgrepeat blood work Peripheral vascular disease 082685428 I73.9 normal ADOLFO done 01/2022 91843 KIET MARTINEZ [facility] [address] [place] [address] 06/22/2023 11:28:26 06/22/2023 12:09:01 Myocardial infarction 32301914 I21.3 stable s/p NSTEMI (03/2017)n egative stress test 05/2022 repeat echo Essential hypertension 77405232 I10 Blood pressure is elevated today, but this is only one reading, will keep close follow up, and consider medication change if blood pressure is still elevated next visit. Sleep apnea 70900862 G47 .30 Compliant with nightly CPAP use Atrial fibrillation 4943 6004 I48.0 [id number] Sc score = 2Remains asymptomat icRate controlled with metoprolol and Cardizem 48 hour holter monitor 03/29/2018 : Normal sinus rhythm. Sinus bradycardi a. Sinus arrhythmia . Rare PVC's. Occasional PAC's Previously considered Xarelto if AFib on holter but since no AFib detected since [place] he was taken off . but now with new change, continue ASA 325 mg for AFib. F/U 3 months Type 2 nayla betes mellitus without complication 170535618 E11.9 Borderline ; treatment and evaluation by primary care doctor. Discussed importance of adequate glycemic control to minimize cardiovasc ular disease progressio n, A1C goal of < 7% for type 2 DM. Obesity 684996187 E66.9 20 lb weight loss recommende d over the next 2 months Peripheral vascular disease 867520552 I73.9 normal ADOLFO done 01/2022 [id number] Michael Vyas MD [facility] [address] [place] [address] 12/12/2023 08:43:56 12/12/2023 09:30:44 Myocardial infarction 19062917 I21.3 Treadmill Myoview Stress test, has high [place] Risk score. Has Known CAD, or CAD risk equivalent . To look for any ischemia. Essential hypertension 51986378 I10 Blood pressure is elevated today, but this is only one reading, will keep close follow up, and consider medication change if blood pressure is still elevated next visit. Sleep apnea 37743499 G47 .30 Compliant with nightly CPAP use Atrial fibrillation 4943 6004 I48.0 [id number] Sc score = 2Remains asymptomat icRate controlled with metoprolol and Cardizem 48 hour holter monitor 03/29/2018 : Normal sinus rhythm. Sinus bradycardi a. Sinus arrhythmia . Rare PVC's. Occasional PAC's Previously considered Xarelto if AFib on holter but since no AFib detected since [place] he was taken off . but now with new change, continue ASA 325 mg for AFib. F/U 3 months Type 2 nayla betes mellitus without complication 058259006 E11.9 Borderline ; treatment and evaluation by primary care doctor. Discussed importance of adequate glycemic control to minimize cardiovasc ular disease progressio n, A1C goal of < 7% for type 2 DM. Obesity 294230703 E66.9 20 lb weight loss recommende d over the next 2 months Peripheral vascular disease 929289782 I73.9 normal ADOLFO done 01/2022 Dyspnea on exertion 6084 5006 R06.09 Treadmill Myoview Stress test, has high [place] Risk score. Has Known CAD, or CAD risk equivalent . To look for any ischemia. Health Concerns Section Related Observation LastModified by Organization Detai ls LastModified Time None Recorded Concern Status LastModified by Organization Details LastModified Time None Recorded Advance Directives Directive None Recorded Payers Encounter Date Sequence Insurance Name Policy Number Policy Chow Covered Member ID Chow Member ID Guarantor Name 11/29/2021 1 [place] [id number] Jono Trevino [id number] Jono Trevino 06/06/2022 1 [place] [id number] Jono Trevino [id number] Jono Trevino 12/05/2022 1 [place] [id number] Jono Trevino [id number] Jono Trevino 06/22/2023 1 [place] [id number] Jono Trevino [id number] Jono Trevino 12/12/2023 1 [place] [id number] Jono Trevino [id number] Jono Trevino Notes Date Note Type Note Provider Name and Address Organization Details Recorded Time 11/29/2021 text/html 11/29/21CC: Card iac follow-up, dyspnea on [id number] white man with history of CAD s/p non-STEMI (03/2017), Afib with RVR (03/2017) on ASA full dose, ARVIND on CPAP, and off and on tobacco user is here for 3 month follow up. He was last seen in the clinic on 08/30/21, since then he quit smoking, and gained few poundsHe denies ER visits and hospitalizations since he was last seen. Today reports: 3 mo FUDenies chest pain.Denies shortness of breath at rest. Has mild dyspnea on exertion.No orthopnea. No PNDs.Denies heart palpitations.Denies dizziness. Denies syncope or near syncope.No ankle or leg edema.No major bleeding events.No reported side effects from medications. Taking medications as prescribed with no missed doses.Denies snoring, daytime somnolence and AM headache.*Last LDL was 61 done on 03/05/21 .Pt takes atorvastatin 20 mg. He was in the ER for Anxiety was in afib with RVR. Pt may have missed medication Had been working a lot. [employer]. On his way to work and had rapid HR. *07/11/20 TDM: Positive stress test. Normal LV systolic function. Reversible defect consistent with ischemia in anterior area. Exercise tolerance: poor. LVEF 58% . *Had a 48 hr Holter Monitor (03/2018) to see if he continues to go into atrial fibrillation which showed only NSR, sinus tachycardia and sinus arrhythmia. Had EK04/02/17 Atrial fibrillation with rapid ventricular response. Borderline R wave progression, anterior leads. Nonspecific T wave abnormality-lateral leads. Abnormal ECG. *Had LHC: 04/03/17 Mild to moderate coronary disease with single-vessel disease in the LAD noted. Normal left ventricular systolic function. Maximum medical treatment. Risk factor modification. *Had ECHO: 04/02/17 Normal left ventricular size. Left ventricular not well visualized. Definity contrast agent used to visually enhance endocardial wall motion and contractility. Mild concentric left ventricular hypertrophy. Normal global left ventricular systolic function. EF 68%. There is mild enlargement of left atrium. Mild pulmonary hypertension based on right ventricular systolic pressure. Atrial fibrillation. Technically difficult study with limited views. Increased left heart filling pressures based on elevated E/E. Results from this visit, or from the past: 10/11/18: Na 136 , K 3.9 ,CL 102 ,CO2 24 , GLU 89 ,BUN 22 ,CR 1.0, 07/22/18:SOD 140,K 5.1,CL 104,CO2 26,GLU 103,BUN 19,CR 0.9. 04-23-2018: TR: 71, TC: 129, HDL: 45, LDL: 63 04/23/18 NA: 143, K: 3.7, CL: 110, CO2: 25, GLU: 106, BUN: 21, AST: 25, ALT: 35, CR: 0.80 05/09/17:SOD 142,K 4.2,CL 107,CO2 22,GLU 103,BUN 17,CR 0.8,AST 25,ALT 38,CK 95,TC 134,TG 82,HDL 42,LDL 69. 04/02/17: NA 136, K 4.4, CL 108, CR 0.70, BUN 17, GLU 105. EK06/26/20 EKG: NSR 04/04/19 Normal sinus rhythm. Within normal limites. Non specific inverte T waves, inferolateral leads. EKG 09/15/18 :Probably Normal sinus rhythm Within normal limits, Anteroseptal myocardial infarction , age undetermined , Inverted T waves , inferolateral leads. EK06/02/18 Normal sinus rhythm. Inverted T wave, anterior leads. EKG 03-01-2018 Probably normal sinus rhythm within normal limits. Anteroseptal myocardial infarction, age undetermined. Inverted T waves, inferolateral leads. EK08/24/17 Probably normal sinus rhythm within normal limits. Anteroseptal myocardial infarction, age undetermined. Inverted T waves, lateral leads EKG 04/07/17: Probably Normal sinus rhythm. within normal limits EK04/02/17 Atrial fibrillation with rapid ventricular response. Borderline R wave progression, anterior leads. Nonspecific T wave abnormality-lateral leads. Abnormal ECG. 10/11/18 the MDRD formula used to calculate the eGFR result has not been validated in patient > 70 years of age CXR 2 Views: 04/02/17 No acute cardiopulmonary disease. *Had Holter done in 12/08/20 showed Sinus rhythm. 1st degree AV block. Rare PVC's. *07/11/20 TDM: Positive stress test. Normal LV systolic function. Reversible defect consistent with ischemia in anterior area. Exercise tolerance: poor. LVEF 58% *ECHO: 04/02/17 Normal left ventricular size. Left ventricular not well visualized. Definity contrast agent used to visually enhance endocardial wall motion and contractility. Mild concentric left ventricular hypertrophy. Normal global left ventricular systolic function. EF 68%. There is mild enlargement of left atrium. Mild pulmonary hypertension based on right ventricular systolic pressure. Atrial fibrillation. Technically difficult study with limited views. Increased left heart filling pressures based on elevated E/E. *[facility]: 04/03/17 Mild to moderate coronary disease with single-vessel disease in the LAD noted. Normal left ventricular systolic function. Maximum medical treatement. Risk factor modification. Michael Vyas MD [address] [place], [address], [facility] 11/29/2021 12:53:46 06/06/2022 text/html 06/06/22CC: Card iac follow-up chest pain and dyspnea on [id number] white man with history of CAD s/p non-STEMI (03/2017), Afib with RVR (03/2017) on ASA full dose, ARVIND on CPAP, and off and on tobacco user is here for 6 month follow up with stress test results. He was last seen in the clinic on 11/29/21, since then heHe denies ER visits and hospitalizations since he was last seen. Today reports:Denies chest pain.Denies shortness of breath at rest. Has mild dyspnea on exertion.No orthopnea. No PNDs.Denies heart palpitations.Denies dizziness. Denies syncope or near syncope.No ankle or leg edema.No major bleeding events.No reported side effects from medications. Taking medications as prescribed with no missed doses.Denies snoring, daytime somnolence and AM headache.*Last LDL was 61 done on 03/04/21.Pt takes atorvastatin 20 mg. *Had Negative stress test on 05/20/22 with Normal LV systolic function. Exercise tolerance: Average. LVEF 63%. *Had Normal ankle-brachial index done on 01/27/22. Previously:He quit smoking, and gained few pounds He was in the ER for Anxiety was in afib with RVR. Pt may have missed medication Had been working a lot. [employer]. On his way to work and had rapid HR. *07/11/20 TDM: Positive stress test. Normal LV systolic function. Reversible defect consistent with ischemia in anterior area. Exercise tolerance: poor. LVEF 58% . *Had a 48 hr Holter Monitor (03/2018) to see if he continues to go into atrial fibrillation which showed only NSR, sinus tachycardia and sinus arrhythmia. Had EK04/02/17 Atrial fibrillation with rapid ventricular response. Borderline R wave progression, anterior leads. Nonspecific T wave abnormality-lateral leads. Abnormal ECG. *Had LHC: 04/03/17 Mild to moderate coronary disease with single-vessel disease in the LAD noted. Normal left ventricular systolic function. Maximum medical treatment. Risk factor modification. *Had ECHO: 04/02/17 Normal left ventricular size. Left ventricular not well visualized. Definity contrast agent used to visually enhance endocardial wall motion and contractility. Mild concentric left ventricular hypertrophy. Normal global left ventricular systolic function. EF 68%. There is mild enlargement of left atrium. Mild pulmonary hypertension based on right ventricular systolic pressure. Atrial fibrillation. Technically difficult study with limited views. Increased left heart filling pressures based on elevated E/E. Results from this visit, or from the past: 10/11/18: Na 136 , K 3.9 ,CL 102 ,CO2 24 , GLU 89 ,BUN 22 ,CR 1.0, 07/22/18:SOD 140,K 5.1,CL 104,CO2 26,GLU 103,BUN 19,CR 0.9. 04-23-2018: TR: 71, TC: 129, HDL: 45, LDL: 63 04/23/18 NA: 143, K: 3.7, CL: 110, CO2: 25, GLU: 106, BUN: 21, AST: 25, ALT: 35, CR: 0.80 05/09/17:SOD 142,K 4.2,CL 107,CO2 22,GLU 103,BUN 17,CR 0.8,AST 25,ALT 38,CK 95,TC 134,TG 82,HDL 42,LDL 69. 04/02/17: NA 136, K 4.4, CL 108, CR 0.70, BUN 17, GLU 105. EK06/26/20 EKG: NSR 04/04/19 Normal sinus rhythm. Within normal limites. Non specific inverte T waves, inferolateral leads. EKG 09/15/18 :Probably Normal sinus rhythm Within normal limits, Anteroseptal myocardial infarction , age undetermined , Inverted T waves , inferolateral leads. EK06/02/18 Normal sinus rhythm. Inverted T wave, anterior leads. EKG 03-01-2018 Probably normal sinus rhythm within normal limits. Anteroseptal myocardial infarction, age undetermined. Inverted T waves, inferolateral leads. EK08/24/17 Probably normal sinus rhythm within normal limits. Anteroseptal myocardial infarction, age undetermined. Inverted T waves, lateral leads EKG 04/07/17: Probably Normal sinus rhythm. within normal limits EK04/02/17 Atrial fibrillation with rapid ventricular response. Borderline R wave progression, anterior leads. Nonspecific T wave abnormality-lateral leads. Abnormal ECG. 10/11/18 the MDRD formula used to calculate the eGFR result has not been validated in patient > 70 years of age CXR 2 Views: 04/02/17 No acute cardiopulmonary disease. *Had Holter done in 07/24/20 showed Sinus rhythm. 1st degree AV block. Rare PVC's. *07/11/20 TDM: Positive stress test. Normal LV systolic function. Reversible defect consistent with ischemia in anterior area. Exercise tolerance: poor. LVEF 58% *ECHO: 04/02/17 Normal left ventricular size. Left ventricular not well visualized. Definity contrast agent used to visually enhance endocardial wall motion and contractility. Mild concentric left ventricular hypertrophy. Normal global left ventricular systolic function. EF 68%. There is mild enlargement of left atrium. Mild pulmonary hypertension based on right ventricular systolic pressure. Atrial fibrillation. Technically difficult study with limited views. Increased left heart filling pressures based on elevated E/E. *LHC: 04/03/17 Mild to moderate coronary disease with single-vessel disease in the LAD noted. Normal left ventricular systolic function. Maximum medical treatement. Risk factor modification. Michael Vyas MD [address] [place], [address], [place] - [facility] 06/06/2022 11:49:22 12/05/2022 text/html 12/05/22CC: Card iac follow-up, [id number] white man with history of CAD s/p non-STEMI (03/2017), Afib with RVR (03/2017) on ASA full dose, ARVIND on CPAP, and off and on tobacco user is here for 6 month follow up with ECHO and labs results. He was last seen in the clinic on 06/06/22, since then he is doing wellHe workDenies chest pain.Denies shortness of breath at rest. Has mild dyspnea on exertion.No orthopnea. No PNDs.Denies heart palpitations.Denies dizziness. Denies syncope or near syncope.No ankle or leg edema.No major bleeding events.No reported side effects from medications. Taking medications as prescribed with no missed doses.Denies snoring, daytime somnolence and AM headache.*Last LDL was 59 done on 06/12/22,Pt takes atorvastatin 20 mg. *Had ECHO on 07/02/22 showed LV chamber size is normal. There is normal global systolic function and contractility. The estimated left ventricle ejection fraction is 55-60% (normal). (06/13/2022) CMP-NA 141 K 4.3 CR 0.90 GL 124 CA 8.6 CK-74 , LIPID-TRIG 122 CHOL 114 LDL 59 HDL 34 *Had Negative stress test on 05/20/22 with Normal LV systolic function. Exercise tolerance: Average. LVEF 63%. *Had Normal ankle-brachial index done on 01/27/22. He quit smoking, and gained few pounds He was in the ER for Anxiety was in afib with RVR. Pt may have missed medication Had been working a lot. [employer]. On his way to work and had rapid HR. *07/11/20 TDM: Positive stress test. Normal LV systolic function. Reversible defect consistent with ischemia in anterior area. Exercise tolerance: poor. LVEF 58% . *Had a 48 hr Holter Monitor (03/2018) to see if he continues to go into atrial fibrillation which showed only NSR, sinus tachycardia and sinus arrhythmia. Had EK04/02/17 Atrial fibrillation with rapid ventricular response. Borderline R wave progression, anterior leads. Nonspecific T wave abnormality-lateral leads. Abnormal ECG. *Had LHC: 04/03/17 Mild to moderate coronary disease with single-vessel disease in the LAD noted. Normal left ventricular systolic function. Maximum medical treatment. Risk factor modification. *Had ECHO: 04/02/17 Normal left ventricular size. Left ventricular not well visualized. Definity contrast agent used to visually enhance endocardial wall motion and contractility. Mild concentric left ventricular hypertrophy. Normal global left ventricular systolic function. EF 68%. There is mild enlargement of left atrium. Mild pulmonary hypertension based on right ventricular systolic pressure. Atrial fibrillation. Technically difficult study with limited views. Increased left heart filling pressures based on elevated E/E. Results from this visit, or from the past: 10/11/18: Na 136 , K 3.9 ,CL 102 ,CO2 24 , GLU 89 ,BUN 22 ,CR 1.0, 07/22/18:SOD 140,K 5.1,CL 104,CO2 26,GLU 103,BUN 19,CR 0.9. 04-23-2018: TR: 71, TC: 129, HDL: 45, LDL: 63 04/23/18 NA: 143, K: 3.7, CL: 110, CO2: 25, GLU: 106, BUN: 21, AST: 25, ALT: 35, CR: 0.80 05/09/17:SOD 142,K 4.2,CL 107,CO2 22,GLU 103,BUN 17,CR 0.8,AST 25,ALT 38,CK 95,TC 134,TG 82,HDL 42,LDL 69. 04/02/17: NA 136, K 4.4, CL 108, CR 0.70, BUN 17, GLU 105. EK06/26/20 EKG: NSR 04/04/19 Normal sinus rhythm. Within normal limites. Non specific inverte T waves, inferolateral leads. EKG 09/15/18 :Probably Normal sinus rhythm Within normal limits, Anteroseptal myocardial infarction , age undetermined , Inverted T waves , inferolateral leads. EK06/02/18 Normal sinus rhythm. Inverted T wave, anterior leads. EKG 03-01-2018 Probably normal sinus rhythm within normal limits. Anteroseptal myocardial infarction, age undetermined. Inverted T waves, inferolateral leads. EK08/24/17 Probably normal sinus rhythm within normal limits. Anteroseptal myocardial infarction, age undetermined. Inverted T waves, lateral leads EKG 04/07/17: Probably Normal sinus rhythm. within normal limits EK/17/17 Atrial fibrillation with rapid ventricular response. Borderline R wave progression, anterior leads. Nonspecific T wave abnormality-lateral leads. Abnormal ECG. 10/11/18 the MDRD formula used to calculate the eGFR result has not been validated in patient > 70 years of age CXR 2 Views: 04/02/17 No acute cardiopulmonary disease. *Had Holter done in 07/24/20 showed Sinus rhythm. 1st degree AV block. Rare PVC's. *07/11/20 TDM: Positive stress test. Normal LV systolic function. Reversible defect consistent with ischemia in anterior area. Exercise tolerance: poor. LVEF 58% *ECHO: 04/02/17 Normal left ventricular size. Left ventricular not well visualized. Definity contrast agent used to visually enhance endocardial wall motion and contractility. Mild concentric left ventricular hypertrophy. Normal global left ventricular systolic function. EF 68%. There is mild enlargement of left atrium. Mild pulmonary hypertension based on right ventricular systolic pressure. Atrial fibrillation. Technically difficult study with limited views. Increased left heart filling pressures based on elevated E/E. *[facility]: 04/03/17 Mild to moderate coronary disease with single-vessel disease in the LAD noted. Normal left ventricular systolic function. Maximum medical treatement. Risk factor modification. Michael Vyas MD [address] [place], [address], [facility] 12/05/2022 11:12:59 06/22/2023 text/html 06/22/23CC: Card iac follow-up dyspnea on [id number] white man with history of CAD s/p non-STEMI (03/2017), Afib with RVR (03/2017) on ASA full dose, ARVIND on CPAP, and off and on tobacco user is here for 3 month follow up. He was last seen in the clinic on 12/05/22, since then he is doing well. He denied chest pain or dyspnea on exertion. *Last LDL was 59 done on 06/12/22,Pt takes atorvastatin 20 mg. He denies ER visits and hospitalizations since he was last seen.*Last LDL was 59 done on 06/12/22,Pt takes atorvastatin 20 mg. Previously:*Had ECHO on 07/02/22 showed LV chamber size is normal. There is normal global systolic function and contractility. The estimated left ventricle ejection fraction is 55-60% (normal). *Had Negative stress test on 05/20/22 with Normal LV systolic function. Exercise tolerance: Average. LVEF 63%. *Had Normal ankle-brachial index done on 01/27/22. He quit smoking, and gained few pounds He was in the ER for Anxiety was in afib with RVR. Pt may have missed medication Had been working a lot. [employer]. On his way to work and had rapid HR. *07/11/20 TDM: Positive stress test. Normal LV systolic function. Reversible defect consistent with ischemia in anterior area. Exercise tolerance: poor. LVEF 58% . *Had a 48 hr Holter Monitor (03/2018) to see if he continues to go into atrial fibrillation which showed only NSR, sinus tachycardia and sinus arrhythmia. Had EK04/02/17 Atrial fibrillation with rapid ventricular response. Borderline R wave progression, anterior leads. Nonspecific T wave abnormality-lateral leads. Abnormal ECG. *Had LHC: 04/03/17 Mild to moderate coronary disease with single-vessel disease in the LAD noted. Normal left ventricular systolic function. Maximum medical treatment. Risk factor modification. Results from this visit, or from the past: 10/11/18: Na 136 , K 3.9 ,CL 102 ,CO2 24 , GLU 89 ,BUN 22 ,CR 1.0, 07/22/18:SOD 140,K 5.1,CL 104,CO2 26,GLU 103,BUN 19,CR 0.9. 04-23-2018: TR: 71, TC: 129, HDL: 45, LDL: 63 04/23/18 NA: 143, K: 3.7, CL: 110, CO2: 25, GLU: 106, BUN: 21, AST: 25, ALT: 35, CR: 0.80 05/09/17:SOD 142,K 4.2,CL 107,CO2 22,GLU 103,BUN 17,CR 0.8,AST 25,ALT 38,CK 95,TC 134,TG 82,HDL 42,LDL 69. 04/02/17: NA 136, K 4.4, CL 108, CR 0.70, BUN 17, GLU 105. EK06/26/20 EKG: NSR 04/04/19 Normal sinus rhythm. Within normal limites. Non specific inverte T waves, inferolateral leads. EKG 01/30/19 :Probably Normal sinus rhythm Within normal limits, Anteroseptal myocardial infarction , age undetermined , Inverted T waves , inferolateral leads. EK06/02/18 Normal sinus rhythm. Inverted T wave, anterior leads. EKG 03-01-2018 Probably normal sinus rhythm within normal limits. Anteroseptal myocardial infarction, age undetermined. Inverted T waves, inferolateral leads. EK08/24/17 Probably normal sinus rhythm within normal limits. Anteroseptal myocardial infarction, age undetermined. Inverted T waves, lateral leads EKG 04/07/17: Probably Normal sinus rhythm. within normal limits EK04/02/17 Atrial fibrillation with rapid ventricular response. Borderline R wave progression, anterior leads. Nonspecific T wave abnormality-lateral leads. Abnormal ECG. 10/11/18 the MDRD formula used to calculate the eGFR result has not been validated in patient > 70 years of age CXR 2 Views: 04/02/17 No acute cardiopulmonary disease. *Had Holter done in 07/24/20 showed Sinus rhythm. 1st degree AV block. Rare PVC's. *07/11/20 TDM: Positive stress test. Normal LV systolic function. Reversible defect consistent with ischemia in anterior area. Exercise tolerance: poor. LVEF 58% *ECHO: 04/02/17 Normal left ventricular size. Left ventricular not well visualized. Definity contrast agent used to visually enhance endocardial wall motion and contractility. Mild concentric left ventricular hypertrophy. Normal global left ventricular systolic function. EF 68%. There is mild enlargement of left atrium. Mild pulmonary hypertension based on right ventricular systolic pressure. Atrial fibrillation. Technically difficult study with limited views. Increased left heart filling pressures based on elevated E/E. *[facility]: 04/03/17 Mild to moderate coronary disease with single-vessel disease in the LAD noted. Normal left ventricular systolic function. Maximum medical treatement. Risk factor modification. [facility] - [facility] 06/22/2023 12:07:36 12/12/2023 text/html 12/12/23CC: Card [facility] [id number] white man with history of CAD s/p non-STEMI (03/2017), Afib with RVR (03/2017) on ASA full dose, ARVIND on CPAP, and off and on tobacco user is here for 6 month follow up. He was last seen in the clinic on 06/22/23, since then he gained few poundsHe denies ER visits and hospitalizations since he was last seen. Today reports: CC: pt states no concerns at this timeDenies chest pain.Denies shortness of breath at rest. Has mild dyspnea on exertion.No orthopnea. No PNDs.Denies heart palpitations.Denies dizziness. Denies syncope or near syncope.No ankle or leg edema.No major bleeding events.No reported side effects from medications. Taking medications as prescribed with no missed doses.Denies snoring, daytime somnolence and AM headache.*Last LDL was 59 done on 06/12/22.Pt takes atorvastatin 20 mg. Previously:*Had ECHO on 07/02/22 showed LV chamber size is normal. There is normal global systolic function and contractility. The estimated left ventricle ejection fraction is 55-60% (normal). *Had Negative stress test on 05/20/22 with Normal LV systolic function. Exercise tolerance: Average. LVEF 63%. *Had Normal ankle-brachial index done on 01/27/22. He quit smoking, and gained few pounds He was in the ER for Anxiety was in afib with RVR. Pt may have missed medication Had been working a lot. [employer]. On his way to work and had rapid HR. *Had a 48 hr Holter Monitor (03/2018) to see if he continues to go into atrial fibrillation which showed only NSR, sinus tachycardia and sinus arrhythmia. Had EK04/02/17 Atrial fibrillation with rapid ventricular response. Borderline R wave progression, anterior leads. Nonspecific T wave abnormality-lateral leads. Abnormal ECG. *Had LHC: 04/03/17 Mild to moderate coronary disease with single-vessel disease in the LAD noted. Normal left ventricular systolic function. Maximum medical treatment. Risk factor modification. Results from this visit, or from the past: 10/11/18: Na 136 , K 3.9 ,CL 102 ,CO2 24 , GLU 89 ,BUN 22 ,CR 1.0, 07/22/18:SOD 140,K 5.1,CL 104,CO2 26,GLU 103,BUN 19,CR 0.9. 04-23-2018: TR: 71, TC: 129, HDL: 45, LDL: 63 04/23/18 NA: 143, K: 3.7, CL: 110, CO2: 25, GLU: 106, BUN: 21, AST: 25, ALT: 35, CR: 0.80 05/09/17:SOD 142,K 4.2,CL 107,CO2 22,GLU 103,BUN 17,CR 0.8,AST 25,ALT 38,CK 95,TC 134,TG 82,HDL 42,LDL 69. 04/02/17: NA 136, K 4.4, CL 108, CR 0.70, BUN 17, GLU 105. EK06/26/20 EKG: NSR 04/04/19 Normal sinus rhythm. Within normal limites. Non specific inverte T waves, inferolateral leads. EKG 09/15/18 :Probably Normal sinus rhythm Within normal limits, Anteroseptal myocardial infarction , age undetermined , Inverted T waves , inferolateral leads. EK06/02/18 Normal sinus rhythm. Inverted T wave, anterior leads. EKG 03-01-2018 Probably normal sinus rhythm within normal limits. Anteroseptal myocardial infarction, age undetermined. Inverted T waves, inferolateral leads. EK08/24/17 Probably normal sinus rhythm within normal limits. Anteroseptal myocardial infarction, age undetermined. Inverted T waves, lateral leads EKG 04/07/17: Probably Normal sinus rhythm. within normal limits EK04/02/17 Atrial fibrillation with rapid ventricular response. Borderline R wave progression, anterior leads. Nonspecific T wave abnormality-lateral leads. Abnormal ECG. 10/11/18 the MDRD formula used to calculate the eGFR result has not been validated in patient > 70 years of age CXR 2 Views: 04/02/17 No acute cardiopulmonary disease. *Had Holter done in 07/24/20 showed Sinus rhythm. 1st degree AV block. Rare PVC's. *07/11/20 TDM: Positive stress test. Normal LV systolic function. Reversible defect consistent with ischemia in anterior area. Exercise tolerance: poor. LVEF 58% *ECHO: 04/02/17 Normal left ventricular size. Left ventricular not well visualized. Definity contrast agent used to visually enhance endocardial wall motion and contractility. Mild concentric left ventricular hypertrophy. Normal global left ventricular systolic function. EF 68%. There is mild enlargement of left atrium. Mild pulmonary hypertension based on right ventricular systolic pressure. Atrial fibrillation. Technically difficult study with limited views. Increased left heart filling pressures based on elevated E/E. *[facility]: 04/03/17 Mild to moderate coronary disease with single-vessel disease in the LAD noted. Normal left ventricular systolic function. Maximum medical treatement. Risk factor modification. Michael Vyas MD [address] [place], [address], [facility] [facility] 12/12/2023 09:23:51
--- OUTSIDE RECORDS SUMMARY | 2024-11-15 09:20 | XMS_ITS | Encounter Summary ---
Author Organization [facility] Address [address] [place] [address] Care Team Providers Care Cobol Application Developer Name Role Phone Michael Oconnor MD Unavailable [phone] David Chance MD Primary Care Provider [phone] Encounter Details Date Type Department Care Team (Late st Contact Info) Description 07/25/2024 Hospital Follow-up Call [facility] Cardi[facility] Care Unit [address] [place] [address] Dionna Sales RN Social History Tobacco Use Types Packs/Day Years Used Date Smoking Tobacco: Former Cigarettes Q uit: 2020 Smokeless Tobacco: Never [facility] Utilities Answer Date Recorded In the [...] any time in the past 12 m [facility], were you homeless or living in a longterm (including now)? No 07/19/2024 Sex and Gender [...] Description 11/22/2024 1:00 PM CDT Office Visit [facility] eld [address] [place] [address] Laurie Washington, SUPERVISOR FABRICATION [address] [facility] [address] [place] [address] documented as of this encounter Visit Diagnoses Not on filedocumented in this encounter Care Teams Cobol Application Developer Relationship Specialty Start Date End Date David Chance MD [address] [place] [phone] PCP - General INTERNAL MEDICINE 07/19/24 Michael Oconnor MD [address] [facility] [address] [phone] Consulting Physician CARDIOVASCULAR DISEASE 07/20/24 documented as of this encounter
--- OUTSIDE RECORDS SUMMARY | 2024-11-15 09:20 | XMS_ITS | Encounter Summary ---
Author Organization [facility] Health Address [address] [facility] [place] [address] Care Team Providers Care Market Editor Name Role Phone David Chance MD Primary Care Provider Encounter Details Date Type Department Care Team (Late st Contact Info) Description 04/05/2019 Lab Requisition [facility] [address] [facility], [place] [address] Loretta Machado DO [address] [facility] 3 [place] [address] Social History Tobacco Use Types Packs/Day Years [...] AM CDT) Case Report Dermatopathology Report Case: [id number] Authorizing Provider: Loretta Machado DO Collected: 04/04/2019 12:00 AM Ordering Location: [facility] Received: 04/05/2019 12:08 PM [...] The specimen consists of a shave measuring [id number]. Jar 0. Specimen B: Received is one formalin filled container labeled with the patient's name and designated left forearm. The specimen consists of a shave measuring 1i2y1wo. Jar 0. 11:53 AM CDT DERMATOPATHOLOGY LABORATORY [...] characteristic determined by the Dermatopathology Laboratory at [facility], directed by Dr. Allison Rivera. These tests need not be, and therefore are not, approved by the [place] Food and Drug Administration. The tests are used for clinical purposes. Billing Codes Specimen Charges Stain Charges 00277 66040 1 1 11:53 AM CDT DERMATOPATHOLOGY LABORATORY Embedded Images 11:53 AM CDT DERMATOPATHOLOGY LABORATORY Pathology/Cytology TISSUE SPECIMEN FROM SKIN / Unknown 04/04/2019 04/05/2019 12:08 PM CDT Miscellaneous samples (specimen) TISSUE SPECIMEN FROM SKIN / Unknown 04/04/2019 04/05/2019 12:08 PM CDT Loretta Machado DO LAB - PATHOLOGY/C YTOLOGY ORDERABLES DERMATOPATHOLOGY LABORATORY [facility] - Department of Dermatology [address] [place] [address], 5th Floor Lab B [address] [phone] documented in this encounter Visit Diagnoses Not on filedocumented in this encounter Care Teams Market Editor Relationship Specialty Start Date End Date David Chance MD [address] [place] [address] PCP - General 12/23/22 documented as of this encounter
--- OUTSIDE RECORDS SUMMARY | 2024-11-15 09:20 | XMS_ITS | Encounter Summary ---
Author Organization [facility] Health Address [address] [facility] [place] [address] Care Team Providers Care Pneumatic Tool Operator Name Role Phone David Chance MD Primary Care Provider [phone] Encounter Details Date Type Department Care Team (Late st Contact Info) Description 03/02/2019 Lab Requisition [facility] Care DermPath Lab [address] [facility], [place] [address] Loretta Machado DO [address] [facility] 3 [place] [address] Social History Tobacco Use Types Packs/Day Years [...] AM CDT) Case Report Dermatopathology Report Case: [id number] Authorizing Provider: Loretta Machado DO Collected: 03/01/2019 [...] characteristic determined by the Dermatopathology Laboratory at [facility], directed by Dr. Allison Rivera. These tests need not be, and therefore are not, approved by the [place] Food and Drug Administration. The tests are used for clinical purposes. Billing Codes Specimen Charges Stain Charges 75821 1 9 4:08 PM CDT DERMATOPATHOLOGY LABORATORY Embedded Images 9 4:08 PM CDT DERMATOPATHOLOGY LABORATORY Pathology/Cytolog y TISSUE SPECIMEN FROM SKIN / Unknown 03/01/2019 03/02/2019 6:59 AM CDT Loretta Machado DO LAB - PATHOLOGY/C YTOLOGY ORDERABLES DERMATOPATHOLOGY LABORATORY [facility] - Department of Dermatology [address] [place] [address], 5th Floor Lab [address] [phone] documented in this encounter Visit Diagnoses Not on filedocumented in this encounter Care Teams Pneumatic Tool Operator Relationship Specialty Start Date End Date David Chance MD [address] [place] [address] PCP - General 12/23/22 documented as of this encounter
--- OUTSIDE RECORDS SUMMARY | 2024-11-15 09:20 | XMS_ITS | CONTINUITY OF CARE DOCUMENT ---
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 Kisrty Castelan MD Cardiology printed t o [place]/fxd to pcp:Unclear etiology. ?Vasovagal syncope +/- Sleep apnea. ?Arrhythmia. We will arrange for him to have an event monitor. Kirsty Castelan MD Date Name STR - Nuclear Complete Echo Mobile Cardiac Tele HISTORY OF PROCEDURES Procedure Date Procedure Name Provider Procedure Notes S tatus SNOMED-CT: 850495924 802831 Current Medications Documented Kirsty Castelan MD completed SNOMED-CT: 107646869 Smoking Cessation Counseling Kirsty Castelan MD completed SNOMED-CT: 24419815 Physical Exam, Performed: Pulse Exam of Foot Kirsty Castelan MD completed SNOMED-CT: 469822994 612420 Current Medications Documented Kirsty Castelan MD completed SNOMED-CT: 125202688 Smoking Cessation Counseling Kristy Castelan MD completed SNOMED-CT: 64322186 Physical Exam, Performed: Pulse Exam of Foot Kirsty Castelan MD completed
--- NOTE | 2024-11-15 09:37 | HOMEO2EVAL ---
Evaluation was performed at [facility] Home Oxygen Evaluation RC: Home Oxygen (O2) Evaluation Start: 11/15/24 09:32 Freq: Status: Active Protocol: RPE Activity Type Activity Date Activity User E-sign Co-sign Detail Recorded Client Recorded Date Recorded By Document 11/15/24 09:10 ROGERIO [id number] 11/15/24 09:36 SJB Document 11/15/24 09:18 SJB [id number] 11/15/24 09:36 SJB 11/15/24 11/15/24 09:10 09:18 Home O2 Evaluation [Oxygen] -Test Phase Resting Exercise [Pulse Oximetry] -Pulse Oximetry (90-100 %) 98 96 [Pulse Rate] -Pulse Rate (60-100 beats/min) 74 98 [Evaluation] -Activity Tolerance Good -Rate of Perceived Exertion (PE) 15 Hard Query Text:Click the Protocol Button to View the RPE Scale [Exercise] -Ambulation Distance (feet) 750 -Ambulation Distance (meters) 228.58 [Comments] -Home Oxygen Evaluation Comments Will begin walk Pt walked on room air approx. 750 ft. , stopping x 1 minute to catch his breath, on room air throughout walk . Sp02s ranged from 96-98%. Hr from 74-98. Pt was very short of breath during walk, instructed on PLB. [Charges] -Evaluation Charges O2 Evaluation Charge
== END 2024-11-15 08:57 | disposition home or self-care (01) ==
LOC: CHSCARD 08:56
PROVIDERS: PCP Internal Medicine; Visit Provider Nurse Practitioner Family
DX: R06.09 Other forms of dyspnea (principal)
CPT/HCPCS: 94618

== ENCOUNTER 2024-12-28 08:10 | Outpatient (CLI) | payer OTHER, SELFPAY ==
--- NOTE | ~2024-12-28 | NM_ITS ---
EXAMINATION: NM saniya stress w perfusion DATE: 12/28/2024 12:07 INDICATION: Other forms of dyspnea TECHNIQUE: Rest images were obtained following intravenous administration of 11.2 mCi Tc99m tetrofosm in (Myoview). The patient was infused intravenously with Lexiscan (Regadenoson). Then, 34.5 mCi Tc99m tetrofosmin (Myoview) was administered intravenously, and stress images were obtained. Data was edi nstructed into short axis and horizontal and vertical long axis SPECT images. Gated SPECT images were also obtained. COMPARISON: None. FINDINGS: There is no definite reversible or fixed perfusion abnormality to suggest ischemia or infar ction. There is normal left ventricular chamber size, wall motion and ejection fraction. Left ventr icular ejection fraction measures 69%. IMPRESSION: 1. Normal myocardial perfusion at rest and during stress. 2. Left ventricular ejection fraction measuring 69%. Reviewed, dictated and finalized at location A.
--- OUTSIDE RECORDS SUMMARY | 2024-12-28 08:20 | XMS_ITS | Encounter Summary ---
Author Organization [facility] Address [address] [place] [address] Care Team Providers Care Video Control Engineer Name Role Phone Michael Oconnor MD Unavailable [phone] David Chance MD Primary Care Provider [phone] Laurie Washington NP Unavailable Reason for Referral * Procedure (Routine) - Closed Specialty Diagnoses / Procedures Referred By Contac t Referred To Contact Cardiology Diagnoses Atrial fibrillation, unspecified type ([facility]) Procedures Cardioversion external Laurie Washington NP [address] [place] [place] [address] Phone: tel: fax: Referral ID Status Reason Start Date Expiration Date Visits Re quested Visits Authorized [id number] Closed 11/22/2024 11/22/2025 1 1 Reason for Visit * Reason Onset Date Comments Schedule Procedure 11/22/2024 Encounter Details Date Type Department Care Team (Late st Contact Info) Description 11/22/2024 Telephone [facility] ld [address] [place] [address] Laurie Washington NP [address] [place] [facility] [place], [place] [address] Schedule Procedure Social History Tobacco Use Types Packs/Day Years Used Date Smoking Tobacco: Former Cigarettes Q uit: 2020 Smokeless Tobacco: Never [facility] Utilities Answer Date Recorded In the past 12 months has th e [employer], gas, oil, or water company threatened to [...] any time in the past 12 m [facility], were you homeless or living in a intermediate (including now)? No 07/19/2024 Sex and Gender [...] Yan RN Active documented in this encounter Progress Notes * Laurie Washington NP - 11/22/2024 1:31 PM CDT Please schedule DCCV in 2 weeks. He is on Eliquis and Flecainide. documented in this encounter Plan of Treatment Upcoming Encounters Date Type Department Care Team ([facility] st Contact Info) Description 02/09/2025 12:30 PM CDT Office Visit [facility] eld [address] [place] [address] Laurie Washington NP [address] [facility] [place] [place] [address] documented as of this encounter Visit Diagnoses Diagnosis Atrial fibrillation, unspecified type (CMS/HCC HHS/HCC)- Primary documented in this encounter Care Teams Video Control Engineer Relationship Specialty Start Date End Date David Chance MD [address] [place] [address] PCP - General INTERNAL MEDICINE 07/19/24 Michael Oconnor MD [address] [phone] Consulting Physician CARDIOVASCULAR DISEASE 07/20/24 Laurie Washington NP [address] [facility] [address] [address] Nurse Practitioner Nurse Practitioner Acute Care 11/22/24 documented as of this encounter
--- OUTSIDE RECORDS SUMMARY | 2024-12-28 08:20 | XMS_ITS | Encounter Summary ---
Author Organization [facility] Health Address [address] [facility] [place] [address] Care Team Providers Care Engine Builder Name Role Phone David Chance MD Primary Care Provider [phone] Encounter Details Date Type Department Care Team (Late st Contact Info) Description 03/02/2019 Lab Requisition [facility] Care DermPath Lab [address] [facility], [place] [address] Loretta Machado DO [address] [facility] 3 [place] [address] Social History Tobacco Use Types Packs/Day Years Used Date Smoking Tobacco: Never Assessed Sex and Gender Information Value Date Recorded Sex Assigned at Not on file Legal Sex Male 11:28 AM CDT Gender Identity Not on file Sexual Orientation Not on file documented as of this encounter Plan of Treatment Not on file documented as of this encounter Procedures Procedure Name Priority Date/Time Associated Diagnosis Comments DERMATOPATHOLOGY Routine 03/01/2019 12:0 0 AM CDT documented in this encounter Results * DERMATOPATHOLOGY (03/01/2019 12:00 AM CDT) Case Report Dermatopathology Report Case: [id number] Authorizing Provider: Loretta Machado DO Collected: 03/01/2019 [...] characteristic determined by the Dermatopathology Laboratory at [facility], directed by Dr. Allison Rivera. These tests need not be, and therefore are not, approved by the [place] Food and Drug Administration. The tests are used for clinical purposes. Billing Codes Specimen Charges Stain Charges 36833 1 9 4:08 PM CDT DERMATOPATHOLOGY LABORATORY Embedded Images 4:08 PM CDT DERMATOPATHOLOGY LABORATORY Pathology/Cytolog y TISSUE SPECIMEN FROM SKIN / Unknown 03/01/2019 03/02/2019 6:59 AM CDT us Loretta Machado DO LAB - PATHOLOGY/CYTOLOGY ORDERABLES Final Result DERMATOPATHOLOGY LABORATORY [facility] - Department of Dermatology [address] [place] [address], 5th Floor Lab [address] [place], [place] [address] [place] [address] documented in this encounter Visit Diagnoses Not on filedocumented in this encounter Care Teams Engine Builder Relationship Specialty Start Date End Date David Chance MD [address] [place] [address] PCP - General 12/23/22 documented as of this encounter
--- OUTSIDE RECORDS SUMMARY | 2024-12-28 08:20 | XMS_ITS | Encounter Summary ---
Author Organization [facility] Address [address] [facility] [place] [address] Care Team Providers Care Cosmetic Sales Assistant Name Role Phone David Chance MD Primary Care Provider Encounter Details Date Type Department Care Team (Late st Contact Info) Description 04/05/2019 Lab Requisition [facility] DermPath Lab [address] [facility], [place] [address] Loretta Machado DO [address] [facility] 3 [place] [address] Social History Tobacco Use Types Packs/Day Years [...] AM CDT) Case Report Dermatopathology Report Case: [id number] Authorizing Provider: Loretta Machado DO Collected: 04/04/2019 12:00 AM Ordering Location: [facility] Derm[facility] Lab Received: 04/05/2019 12:08 PM Pathologist: Courtney Alonzo MD Specimens: A) - Skin, left chest B) - Skin, left forearm 11:53 AM CDT DERMATOPATHOLOGY LABORATORY Final Diagnosis [...] The specimen consists of a shave measuring 6x7n2em. Jar 0. Specimen B: Received is one formalin filled container labeled with the patient's name and designated left forearm. The specimen consists of a shave measuring 7p0w0hg. Jar 0. 11:53 AM [facility] DERMATOPATHOLOGY LABORATORY Microscopic Description Specimen A. SKIN, [...] by the Dermatopathology Laboratory at [facility], directed by Dr. Allison Rivera. These tests need not be, and therefore are not, approved by the [place] Food and Drug Administration. The tests are used for clinical purposes. Billing Codes Specimen Charges Stain Charges 17127 78022 1 1 11:53 AM CDT DERMATOPATHOLOGY LABORATORY Embedded Images 11:53 AM CDT DERMATOPATHOLOGY LABORATORY Pathology/Cytology TISSUE SPECIMEN FROM SKIN / Unknown 04/04/2019 04/05/2019 12:08 PM CDT Miscellaneous samples (specimen) TISSUE SPECIMEN FROM SKIN / Unknown 04/04/2019 04/05/2019 12:08 PM CDT us Loretta Machado DO LAB - PATHOLOGY/CYTOLOGY ORDERABLES Final Result DERMATOPATHOLOGY LABORATORY [facility] - Department of Dermatology [address] [place] [address] 5th Floor Lab [address] [phone] documented in this encounter Visit Diagnoses Not on filedocumented in this encounter Care Teams Cosmetic Sales Assistant Relationship Specialty Start Date End Date David Chance MD [address] [place], [place] [phone] PCP - General 12/23/22 documented as of this encounter
--- OUTSIDE RECORDS SUMMARY | 2024-12-28 08:20 | XMS_ITS | CONTINUITY OF CARE DOCUMENT ---
Author Name qiisidoroser, qieuser Address Unknown Organization [facility] Address [address] [facility] [address] [place] [address] Phone [phone] Care Team Providers Care Rolloff Truck Driver Name Role Phone Kirsty Castelan MD Unavailable [phone] GLADYS ROJAS MD Unavailable GLADYS ROJAS MD Unavailable PROBLEMS Condition Status Date Provider Notes HTN active Kirsty Castelan MD Abnormal EKG active Kirsty Castelan MD Obstructive sleep apnea [...] one Q 6 hrs as needed Kirsty Csatelan MD FAMOTIDINE 20 MG ORAL TABLET active [...] Payer name Policy type / Coverage type [employer] red [employer]an ID [facility] [id number] 1 TREATMENT PLAN Date Name Performer Cardiology:His [...] Name Provider Procedure Notes S tatus SNOMED-CT: 478212518 344571 Current Medications Documented Kirsty Castelan MD completed SNOMED-CT: 107125507 Smoking Cessation Counseling Kirsty Castelan MD completed SNOMED-CT: 10255922 Physical Exam, Performed: Pulse Exam of Foot Kirsty Castelan MD completed SNOMED-CT: 265190289 005521 Current Medications Documented Kirsty Castelan MD completed SNOMED-CT: 292750727 Smoking Cessation Counseling Kirsty Castelan MD completed SNOMED-CT: 04540318 Physical Exam, Performed: Pulse Exam of Foot Kirsty Castelan MD completed
--- OUTSIDE RECORDS SUMMARY | 2024-12-28 08:20 | XMS_ITS | Data Portability ---
Author Organization [place] [facility] OFF[facility] Address [address] [place] [address] Care Team Providers Care Threat Monitoring Analyst Name Role Phone GLADYS ROJAS Primary Care Provider Assessment Encounter Date Assessment Date Assessment LastModified [...] Orders Jardiance 10 mg tablet 2023 024 [facility], [address] [place] [address], [address], 4 09:23:09 Jardiance 10 mg tablet 2022 023 [facility], [facility] [place], [address], 3 11:12:55 Patient TargetsNo targets recorded. Patient Instructions Encounter Date Encounter Id Patient Instructions Last Modified By Organization Details Last Modified Time 11/29/2021 [id number] high blood pressure: care instructions [email or web address] Not available 11/29/2021 12:53:18 learning about high blood pressure [email or web address] Not available 11/29/2021 12:53:18 06/06/2022 [id number] Exercise advised Low cholesterol diet advised Low sodium diet advised. [email or web address] Not available 06/06/2022 11:43:37 12/05/2022 [id number] Weight loss 20 pounds Exercise advised Low cholesterol diet advised Low sodium diet advised. [email or web address] Not available 12/05/2022 11:12:30 06/22/2023 [id number] Exercise advised Low cholesterol diet advised Low sodium diet advised. [email or web address] Not available 06/22/2023 12:07:32 12/12/2023 [id number] Weight loss 20 pounds Exercise advised Low [...] ation record ed. Not Available 2021 13:41:53 06/10/20 22 06/06/2022 elect rocar diogr am No observ ation [...] Organization Details Recorded Time Peripheral vascular disease 506883097 Active 2022 Radha Escobar [facility], [place] [facility] 3 11:43:48 Essential hypertension 62964976 Active 2016 Radha Escobar [facility], [place] [facility] 3 11:43:00 Hypercholester olemia 83558296 Active 2016 Sharonjaja Omalley [facility], [place] - [facility] 7 12:49:44 Sleep apnea 99181344 Active 2016 Radha Escobar [facility], [place] [facility] 3 11:43:02 Cough 57812706 Active 2016 Sharonjaja Omalley [facility], [place] - [facility] 7 12:50:05 Atrial fibrillation 54801299 Active 2016 Radha Escobar [facility], [place] [facility] 7 16:06:35 Myocardial infarction 17293397 Active 2016 Radha Escobar [facility], [place] [facility] 7 16:06:49 Type 2 diabetes mellitus without complication 444084691 Active 2016 Radha Escobar [facility], [place] [facility] 3 11:43:38 Obesity 510260011 Active 2017 Radha Escobar [facility], [place] [facility] 8 16:39:04 Problem Notes None recorded. Procedures Surgical History Date Name Laterality Status Provider Name and Address Organization Details Recorded Time 03/17/20 17 Cardiac Catheterization completed Sharon Omalley [facility] 04/07/2017 12:52:15 Imaging Results [...] 06/24/2023 15:29:07 12/15/2023 exercise stress test completed [facility] Info rmation not available 12/23/2023 [...] Updated DateTime 2 187.96 cm 44.9 kg/m2 489005. 33 g 69 /min 95 % 95 % 132 mm[Hg] 78 mm[Hg] Julián Rosas [facility] 2 12:25:02 Date Recorded Body height Body mass index (BMI) Body weight Heart rate Respiratory rate Oxygen saturation Oxygen saturation in Arterial blood by Pulse oximetry Systolic blood pressure Diastolic blood pressure Provider Name and Address Organization Details Last Updated DateTime 2 187.96 cm 45.6 kg/m2 515688. 29 g 72 /min 16 /min 94 % 94 % 118 mm[Hg] 72 mm[Hg] Julián Rosas [facility] 2 11:24:59 Date Recorded Body height Body mass index (BMI) Body weight Oxygen saturation Oxygen saturation in Arterial blood by Pulse oximetry Heart rate Systolic blood pressure Diastolic blood pressure Provider Name and Address Organization Details Last Updated DateTime 3 187.96 cm 48.5 kg/m2 199245. 92 g 94 % 94 % 63 /min 126 mm[Hg] 70 mm[Hg] WHITNEY PEREZ [facility] [place] 3 10:45:27 Date Recorded Body height Body mass index (BMI) Body weight Heart rate Respiratory rate Oxygen saturation Oxygen saturation in Arterial blood by Pulse oximetry Systolic blood pressure Diastolic blood pressure Provider Name and Address Organization Details Last Updated DateTime 3 187.96 cm 49.2 kg/m2 238864. 88 g 84.99 /min 16 /min 97 % 97 % 142 mm[Hg] 84 mm[Hg] Julián Rosas [facility] [place] 3 11:39:06 Date Recorded Body height Body mass index (BMI) Body weight Heart rate Oxygen saturation Oxygen saturation in Arterial blood by Pulse oximetry Systolic blood pressure Diastolic blood pressure Provider Name and Address Organization Details Last Updated DateTime 4 187.96 cm 50.4 kg/m2 674195. 72 g 52 /min 97 % 97 % 132 mm[Hg] 80 mm[Hg] Magdalena Quarles [facility] 4 08:57:03 Social History Question Answer Notes LastModified by Organizat ion Details LastModified Time Tobacco Smoking Status Former [facility]oker Not Available [facility] 06/19/2020 03:30:41 What Is Your Level Of Caffeine Consumption? Moderate [id number] Information not available 06/19/2020 How Much Tobacco Do You Chew? None [id number] Information not available 06/19/2020 What Type Of Diet Are You Following? REGULAR [id number] Information not available 06/19/2020 Which Illicit Or Recreational Drugs Have You Used? No [id number] Information not available 06/19/2020 Live Alone Or With Others? With Others [email or web address] Information not available 04/07/2017 Marital Status [email or web address] Informatio n not available 04/07/2017 What Was The Date Of Your Most Recent Tobacco Screening? 09/15/2018 [id number] Information not available 06/19/2020 How Much Tobacco Do You Smoke? 0.5 PPD [id number] Information not available 06/19/2020 General Stress Level Low [email or web address] Information not available 04/07/2017 Sex: Unknown Functional Status Question Answer Note LastModified by Organizat ion Details LastModified Time What is your level of alcohol consumption? Occasional [id number] Information not available 06/19/2020 Do you or have you ever used smokeless tobacco? Former smokeless tobacco user [id number] Information not available 06/19/2020 What is your occupation? [employer] [id number] Information not available 06/19/2020 Do you or have you ever used e-cigarettes or vape? Never used electronic cigarettes [id number] Information not available 06/19/2020 What is your exercise level? None [id number] Information not available 06/19/2020 Mental Status None recorded. Family History Nothing Reported. Medical History Condition Response Diabetes Y Atrial Fibrillation Y Hypertension Y Sleep Apnea Y High Cholesterol Y Past Encounters Encounter ID Performer Location Encounter Start Date Encounter Closed Date Diagnosis/Indication Diagnosis SNOMED-CT Code Diagnosis ICD10 Code Diagnosis Note [id number] Michael Almousalli , MD [facility] [address] [place] [address] 04/07/2017 11:37:18 04/07/2017 15:16:13 Sleep apnea 69606038 G47.30 On Cpap Essential hypertension 21508341 I10 Patient's blood pressure is {{well-con trolled* [...] nOn Toprol and cardizem Myocardial infarction 22 796367 I21.3 s/p Non-stemiN eeds to be on ASA, and plavixdue to the need for Plavix and Xarelto, asa well as asa, he would be a candidate for Justin trialthis was discussed with vick and hs , they do no want that. Type 2 nayla betes mellitus without complication 170117915 E11.9 [id number] Michael Oconnor MD [facility] [address] [place] [address] 05/12/2017 17:01:02 05/13/2017 09:35:08 Essential hypertension 40939620 I10 Patient's blood pressure is {{well-con trolled* [...] grams sodium or less daily). Sleep apnea 96918457 G47 .30 On Cpap Atrial fibrillation 4943 6004 I48.91 He is in NSR nowOn Toprol and cardizem Myocardial infarction 22 617626 I21.3 s/p Non-stemiN eeds to be on ASA, and plavix, will DC Xarelto as he is in NSR now Type 2 nayla betes mellitus without complication 605618324 E11.9 treatment and evaluation by primary care doctor Obesity 117541124 E66.9 [id number] Michael Oconnor MD [facility] [address] [place] [address] 08/24/2017 16:40:08 08/25/2017 09:53:52 Essential hypertension 27572864 I10 Sleep apnea 62952582 G47 .30 On Cpap Atrial fibrillation 4943 6004 I48.91 He is in NSR nowOn Toprol and cardizem Myocardial infarction 22 114852 I21.3 s/p Non-stemiN eeds to be on ASA, and plavix, as he is in NSR now Type 2 nayla betes mellitus without complication 703428100 E11.9 treatment and evaluation by primary care doctor Obesity 195485877 E66.9 20 lb. weight loss recommende d over the next 2 months. [id number] Chepe Henry MD [facility] [address] [place] [address] 03/01/2018 10:07:07 03/04/2018 15:25:17 Essential hypertension 42662483 I10 Patient's blood pressure is {{well-con trolled* [...] grams sodium or less daily). Sleep apnea 21054820 G47 .30 On Cpap. Tolerates. Atrial fibrillation 4943 6004 I48.91 He is in NSR now. On Toprol and cardizem. Has [id number]-IT Sc risk score of 3, with unadjusted CVA risk of 3.2%/year. Obtain 48 hour Holter as afib was reportedly only at time of CA. Consider Xarelto if afib on Holter. Myocardial infarction 22 530579 I21.3 s/p Non-stemi 03/01/18 Needs to be on ASA, and Plavix, as he is in NSR now. Had LDL 69 on statin 04/2018. Obtain repeat FLP. Type 2 nayla betes mellitus without complication 186544143 E11.9 treatment and evaluation by primary care doctor Obesity 952298664 E66.9 20 lb. weight loss recommende d over the next 2 months. [id number] Chepe Henry MD [facility] [address] [place] [address] 03/31/2018 14:20:13 08/20/2018 10:32:00 Essential hypertension 20248299 I10 Mild concentric left ventricula r hypertroph [...] qd 03/31/18.BM P/Mg 3 wks. Sleep apnea 73390974 G47 .30 On Cpap. Tolerates. Atrial fibrillation 4943 6004 I48.91 He is in NSR now. On Toprol and cardizem. Has KAJ4QP2-OD Sc risk score of 3, with unadjusted CVA risk of 3.2%/year. Had 48Hr Holter Monitor on 03/29/18 showed NSR, Sinus Tachycardi a and Sinus Arrhythma. No atrial fibrillati on episodes. Had considered Xarelto if afib on Holter but since no afib detected since CA, continue ASA 81 mg for afib and CAD, with Plavix since s/p CA. Myocardial infarction 22 229187 I21.3 s/p Non-stemi 03/01/18 Needs to be on ASA, and Plavix, as he is in NSR now. Had LDL 69 on statin 04/2018. Obtain repeat FLP. Type 2 nayla betes mellitus without complication 935434896 E11.9 treatment and evaluation by primary care doctor Obesity 491256045 E66.9 20 lb. weight loss recommende d over the next 2 months. Hypercholesterolemia 136 36139 E78.00 Needs to keep LDL less than 70, and HDL more than /2017: LDL 69. Obtain FLP. [id number] Chepe Henry MD [facility] [address] [place] [address] 06/02/2018 13:31:11 06/02/2018 14:42:34 Essential hypertension 86826452 I10 Mild concentric left ventricula r hypertroph [...] qd 06/02/18. BMP/Mg 3 wks. Sleep apnea 30808020 G47 .30 Mild pulm. HTN. On Cpap. Tolerates. Atrial fibrillation 4943 6004 I48.91 He is in NSR now. On Toprol and cardizem. Has FEK7MT1-KG Sc risk score of 3, with unadjusted CVA risk of 3.2%/year. Had 48Hr Holter Monitor on 03/29/18 showed NSR, Sinus Tachycardi a and Sinus Arrhythma. No atrial fibrillati on episodes. Had considered Xarelto if afib on Holter but since no afib detected since CA, continue ASA 81 mg for afib and CAD, with Plavix since s/p CA. Myocardial infarction 22 246654 I21.3 s/p Non-STEMI (03/2017). Needs to be on ASA, and Plavix, as he is in NSR now. Had LDL 63 on statin 04/2018. Type 2 nayla betes mellitus without complication 656690275 E11.9 treatment and evaluation by primary care doctor Obesity 327810156 E66.9 20 lb. weight loss recommende d over the next 2 months. Hypercholesterolemia 136 07415 E78.00 Needs to keep LDL less than 70, and HDL more than : LDL 69. Had 04-23-2018 : LDL: 63 Continue statin. [id number] Chepe Henry MD [facility] [address] [place] [address] 09/15/2018 11:21:07 09/15/2018 12:57:26 Essential hypertension 62811425 I10 Mild concentric left ventricula r hypertroph [...] to f/u mild increased K. Sleep apnea 27052570 G47 .30 Mild pulm. HTN. On Cpap. Tolerates. Atrial fibrillation 4943 6004 I48.91 He is in NSR now. On Toprol and cardizem. Has [id number]-EY Sc risk score of 3, with unadjusted CVA risk of 3.2%/year. Had 48Hr Holter Monitor on 03/29/18 showed NSR, Sinus Tachycardi a and Sinus Arrhythma. No atrial fibrillati on episodes. Had considered Xarelto if afib on Holter but since no afib detected since CA, continue ASA 81 mg for afib and CAD, with Plavix since s/p CA. Patient agrees with no anticoagul ant after discussing risks and benefits. Myocardial infarction 22 081438 I21.3 s/p Non-STEMI (03/2017). Needs to be on ASA, and Plavix, as he is in NSR now. Had LDL 63 on statin 04/2018. Type 2 nayla betes mellitus without complication 129734845 E11.9 treatment and evaluation by primary care doctor Obesity 784133748 E66.9 20 lb. weight loss recommende d over the next 2 months. Hypercholesterolemia 136 77109 E78.00 Needs to keep LDL less than 70, and HDL more than /2016: LDL 69. Had 04-23-2018 : LDL: 63 Continue statin. [id number] Chepe Henry MD [facility] [address] [place] [address] 11/15/2018 14:35:47 11/15/2018 16:30:35 Essential hypertension 04547011 I10 Mild concentric left ventricula r hypertroph [...] tartate 100 mg bid 11/15/18. Sleep apnea 99467328 G47 .30 Mild pulm. HTN. On Cpap. Tolerates. Atrial fibrillation 4943 6004 I48.91 He is in regular rhythm now. On Toprol and cardizem. Has XIP9ZL2-XV Sc risk score of 3, with unadjusted CVA risk of 3.2%/year. Had 48Hr Holter Monitor on 03/29/18 showed NSR, Sinus Tachycardi a and Sinus Arrhythma. No atrial fibrillati on episodes. Had considered Xarelto if afib on Holter but since no afib detected since CA, continue ASA 81 mg for afib and CAD, with Plavix since s/p CA. Patient agrees with no anticoagul ant after discussing risks and benefits. Myocardial infarction 22 343973 I21.3 s/p Non-STEMI (03/2017). No PCI at that time. Needs to be on ASA, and Plavix, as he is in NSR now. Had LDL 63 on statin 04/2018. Type 2 nayla betes mellitus without complication 246738841 E11.9 treatment and evaluation by primary care doctor Obesity 941984318 E66.9 20 lb. weight loss recommende d over the next 2 months. Hypercholesterolemia 136 14644 E78.00 Needs to keep LDL less than 70, and HDL more than /2016: LDL 69. Had 04-23-2018 : LDL: 63 Continue statin. [id number] Chepe Henry MD [facility] [address] [place] [address] 04/04/2019 10:46:13 04/04/2019 11:25:26 Myocardial infarction 83725230 I21.3 s/p Non-STEMI (03/2017). No PCI at that time. Needs to be on ASA, and Plavix, as he is in NSR now. Had LDL 63 on statin 04/2018. Essential hypertension 81458829 I10 Mild concentric left ventricula r hypertroph [...] tartate 100 mg bid 11/15/18. Sleep apnea 65793097 G47 .30 Mild pulm. HTN. WIll repeat 2 D echo before next visit to reassess On Cpap. Tolerates. Atrial fibrillation 4943 6004 I48.91 He is in regular rhythm now. On Toprol and cardizem. Has YDP5KJ5-HC Sc risk score of 3, with unadjusted CVA risk of 3.2%/year. Had 48Hr Holter Monitor on 03/29/18 showed NSR, Sinus Tachycardi a and Sinus Arrhythma. No atrial fibrillati on episodes. Had considered Xarelto if afib on Holter but since no afib detected since CA, continue ASA 81 mg for afib and CAD, with Plavix since s/p CA. Patient agrees with no anticoagul ant after discussing risks and benefits. Type 2 nayla betes mellitus without complication 684761062 E11.9 treatment and evaluation by primary care doctor Obesity 052995696 E66.9 20 lb. weight loss recommende d over the next 2 months. Hypercholesterolemia 136 87860 E78.00 Needs to keep LDL less than 70, and HDL more than /2016: LDL 69. Had 04-23-2018 : LDL: 63 Continue statin. [id number] Michael Oconnor MD [facility] [address] [place] [address] 07/01/2019 10:23:23 07/03/2019 20:40:07 Myocardial infarction 56833076 I21.3 s/p Non-STEMI (03/2017). No PCI at that time. Needs to be on ASA, as he is in NSR now. Will d/c Plavix today ( 9). Had LDL 63 on statin 04/2018. Essential hypertension 19052137 I10 Mild concentric left ventricula r hypertroph [...] to metoprolol tartate 100 mg bid 11/15/18. [id number]|2024-12-28 08:21:00|2024-12-28 08:20:00|XMS_ITS|BKG DAEMON|External Medical Summaries|[id number]|" Encounter Summary Created on: December 28, 2024 Jono Trevino : 1970 Sex: Male Author Organization [facility] Address [address] [place] [address] Care Team Providers Care Threat Monitoring Analyst Name Role Phone Michael Oconnor MD Unavailable [phone] Gladys Rojas MD Primary Care Provider [phone] Laurie Washington NP Unavailable [phone] Encounter Details Date Type Department Care Team (Late st Contact Info) Description 07/25/2024 Hospital Follow-up Call [facility] Unit [address] [place] [address] Dionna Sales, RN Social History Tobacco Use Types Packs/Day Years Used Date Smoking Tobacco: Former Cigarettes Q uit: 2020 Smokeless Tobacco: Never [facility] Utilities Answer Date Recorded In the past [...] any time in the past 12 [facility], were you homeless or living in a group home (including now)? No 07/19/2024 Sex and Gender [...] Care Team (Late st Contact Info) Description 02/09/2025 12:30 PM CDT Office Visit [facility] [address] [place] [address] Laurie Washington NP [address] [facility] [address] [place] [address] documented as of this encounter Visit Diagnoses Not on filedocumented in this encounter Care Teams Threat Monitoring Analyst Relationship Specialty Start Date End Date Gladys Rojas MD [address] [place] [address] PCP - General INTERNAL MEDICINE 07/19/24 Michael Oconnor MD [address] [phone] Consulting Physician CARDIOVASCULAR DISEASE 07/20/24 Laurie Washington NP [address] [facility] [address] [id number] Nurse Practitioner Nurse Practitioner Acute Care 11/22/24 documented as of this encounter "
--- OUTSIDE RECORDS SUMMARY | 2024-12-28 08:21 | XMS_ITS | Clinical Summary ---
Author Organization [facility] Address [address] [place] [address] Care Team Providers Care Elevator Examiner And Adjuster Name Role Phone Michael Oconnor MD Unavailable David Chance MD Primary Care Provider [phone] Laurie Washington NP Unavailable Allergies No known active allergies Medications atorvastatin (LIPITOR) 20 MG tablet Take 1 tablet (20 mg total) by mouth nightly at bedtime. Active dilTIAZem CD (CARDIZEM CD) 240 MG 24 hr capsule Take 1 capsule (240 mg total) by mouth daily. 07/21/20 24 Active losartan (COZAAR) 50 MG tablet Take 1 tablet (50 mg total) by mouth daily. 11/07/19 25 Active Fenofibrate 50 MG Cap TAKE 1 CAPSULE BY MOUTH ONCE DAILY WITH A MEAL 11/12/19 25 Active traMADol (ULTRAM) 50 MG tablet Take 1 tablet (50 mg total) by mouth every 6 (six) hours as needed. Active spironolactone -hydroCHLOROth iazide (ALDACTAZIDE) 25-25 MG tablet Take 1 tablet by mouth daily. 10/27/19 25 Active pantoprazole EC (PROTONIX) 40 MG tablet Take 1 tablet (40 mg total) by mouth daily. 11/07/19 25 Active metoprolol succinate ER (TOPROL-XL) 100 MG 24 hr tablet Take 1 tablet (100 mg total) by mouth 2 (two) times daily. 11/11/19 25 Active DULoxetine (CYMBALTA) 30 MG capsule Take 1 capsule (30 mg total) by mouth every evening. 05/18/20 24 Active ASPIRIN EC ADULT LOW DOSE 81 MG tablet Take 1 tablet (81 mg total) by mouth daily. 08/12/20 24 Active ELIQUIS 5 MG tablet 11/18/19 Active albuterol sulfate HFA 108 (90 Base) MCG/ACT inhaler INHALE 1 TO 2 PUFFS BY MOUTH EVERY 4 TO 6 HOURS NEEDED FOR SHORTNESS OF BREATH FOR WHEEZING Active magnesium oxide (MAG-OX) 400 (240 Mg) MG tablet Take 1 tablet (400 mg total) by mouth daily. Active flecainide (TAMBOCOR) 100 MG tablet Take 1 tablet (100 mg total) by mouth 2 (two) times daily. 180 tablet 3 12/13/19 25 Active digoxin (LANOXIN) 0.25 MG tablet Take 1 tablet (250 mcg total) by mouth daily. 11/04/19 25 025 Discontinued flecainide (TAMBOCOR) 100 MG tablet Take 1 tablet (100 mg total) by mouth 2 (two) times daily. 180 tablet 3 11/23/19 25 025 Discontinued(Re order) Active Problems Problem Noted Date Diagnosed Date Bilateral pulmonary embolism ([facility]) 1 09/19/2023 Peripheral vascular disease 06/18/2023 Atrial fibrillation ([facility]) 05/10/2017 Myocardial infarction ([facility]) 05/10/20 17 Type 2 diabetes mellitus wit hout complication ([facility]) 05/10/2017 Hypercholesterolemia 04/07/2017 Essential hypertension 04/07/2017 Near syncope 06/05/2015 Obesity 06/05/2015 Sleep apnea, unspecified 06/05/2015 Encounters Date Type Department Care Team Description 12/14/2024 Telephone [facility] [address] [place] [phone] Kaci Del Rio MD Appointment Request 12/12/2024 10:31 AM CDT - 12/12/2024 11:59 PM CDT Hospital Encounter [facility] - [facility] [address], [place] [id number] Laurie Washington, COMPUTER SYSTEMS SUPPORT SPECIALIST Discharge Disposition: Home or Self Care (Routine Discharge) 12/12/2024 Orders Only [facility] [address] [place] [address] Laurie Washington NP 12/12/2024 Travel 11/22/2024 1:00 PM CDT Office Visit [facility] [address] [place] [address] Laurie Washington NP Follow Up; Atrial Fibrillation 11/22/2024 Telephone [facility] [address] [place] [address] Kaci Del Rio MD Schedule Procedure 11/22/2024 Telephone [facility] [address] [place] [address] Laurie Washington NP Schedule Procedure 11/22/2024 Travel 11/18/2024 Telephone [facility] [address] [place] [address] Kaci Del Rio MD Appointment Reminder 11/15/2024 Orders Only [facility] [address] [place] [address] Kaci Del Rio MD from Last 3 Months Family History Medical History Relation Comments No Known Problems Father No Known Problems Mother Relation Status Comments Father Mother Social History Tobacco Use Types Packs/Day Years Used Date Smoking Tobacco: Former Cigarettes Q uit: 2020 Smokeless Tobacco: Never Tobacco Cessation:Counseling Given: Not Answered [facility] Utilities Answer Date Recorded In the past 12 months has [facility] [employer], oil, or water [employer] threatened to shut off services in your [...] any time in the past 12 m [facility], were you homeless or living in a care home (including now)? No 07/19/2024 Sex and Gender Information Value Date Recorded Sex Assigned at Not on file Legal Sex Male 9:04 PM CDT Gender Identity Not on file Sexual Orientation Not on file Last Filed Vital Signs Vital Sign Reading Time Taken Comments Blood Pressure 148/86 12/12/2024 1:55 PM CDT Pulse 66 12/12/2024 1:55 PM CDT Temperature 36.6 C (97.8 F) 07/21/2024 3:30 PM AGILE SCRUM COACH Respiratory Rate 12 12/12/2024 1:55 PM CDT Oxygen Saturation 99% 12/12/2024 1:55 PM CDT Inhaled Oxygen Concentration - - Weight 157.4 kg (347 lb) 12/12/2024 11:10 AM CDT Height 188 cm (6' 2 ) 12/12/2024 11:10 AM CDT Body Mass Index 44.55 12/12/2024 11:10 AM CDT Plan of Treatment Upcoming Encounters Date Type Department Care Team ([facility] st Contact Info) Description 02/09/2025 12:30 PM CDT Office Visit [facility] [address] [place] [address] Laurie Washington, COMPUTER SYSTEMS SUPPORT SPECIALIST [address] [place] [address] Health Maintenance Due Date Last Done Comments ASCVD LDL 1970 Colorectal Cancer Screening Colonoscopy (10 Years) 1969 Kidney Health Evaluation 1970 Hemoglobin A1C 1969 Lipid Panel 1969 Annual Physical 1972 Diabetes: Retinopathy Eye Exam 12/25/1987 Hepatitis C 12/25/1987 Hepatitis B Vaccines (1 of 3 - 19+ 3-dose series) 1988 Pneumococcal Vaccine: 50+ Years (1 of 2 - PCV) 1988 COVID-19 Vaccine ( season) 2024 06/12/2023, [...] on patient's age to complete this topic Procedures Procedure Name Priority Date/Time Associated Diagnosis Comments ECG 12-LEAD Routine 12/12/2024 1:27 PM CDT Atrial fibrillation, unspecified type (CMS/HCC HHS/HCC) BASIC METABOLIC PANEL STAT 12/12/2024 10:49 AM CDT Atrial fibrillation, unspecified type (CMS/HCC HHS/HCC) DIGOXIN Routine 12/12/2024 10:49 AM CDT Atrial fibrillation, unspecified type (CMS/HCC HHS/HCC) CARDIOVERSION EXTERNAL Routine 10:31 AM CDT Atrial fibrillation, unspecified type (CMS/HCC HHS/HCC) ELECTROCARDIOGRAM (NON MIDMARK ACQUIRED) Routine 11/22/2024 1:01 PM CDT Atrial fibrillation, unspecified type (CMS/HCC HHS/HCC) from Last 3 Months Results * ECG 12 lead (12/12/2024 1:27 PM CDT) 12/12/2024 1:27 PM CDT Narrative [facility] - 12/12/2024 6:49 PM CDT [place] [address] [place] [address] Test Date: 2024-12-12 Pat Name: GAIL TREVINO Department: 1 Room: Gender: Male House Builder: As : 1970 Requested By: KACI ELIANE Order Number: [id number] Reading MD: Chinedu Vance Measurements Intervals [place] Rate: 64 P: 0 PA: 0 QRS: -38 QRSD: 127 T: 17 QT: 430 QTc: 445 Interpretive Statements nsr with long pr Left Atrial Enlargement INFERIOR MYOCARDIAL INFARCTION , PROBABLY OLD [40+ ms Q WAVE AND/OR ST/T ABNORMALITY IN II/aVF] Procedure Note Chinedu Vance MD - 12/12/2024 [facility] [address] [place] [address] Test Date: 2024-12-12 Pat Name: GAIL LOPEZLEY Department: 1 Room: Gender: Male House Builder: As : 1970 Requested By: KACI ELIANE Order Number: [id number] Reading : Chinedu Vance Measurements Intervals [place] Rate: 64 P: 0 PA: 0 QRS: -38 QRSD: 127 T: 17 QT: 430 QTc: 445 Interpretive Statements nsr with long pr Left Atrial Enlargement INFERIOR MYOCARDIAL INFARCTION , PROBABLY OLD [40+ ms Q WAVE AND/OR ST/T ABNORMALITY IN II/aVF] us Kaci Del Rio MD ECG ORDERABLES Final Result [facility] * (ABNORMAL) BASIC METABOLIC PANEL (12/12/2024 10:49 AM CDT) SODIUM S/P/B 134(L) 136 - 145 MMOL/L 12/12/2024 11:56 AM CDT [facility] POTASSIUM S/P/B 4.4 3.5 - 5.1 MMOL/L 12/12/2024 11:56 AM CDT [facility] CHLORIDE S/P/B 101 97 - 115 MMOL/L 12/12/2024 11:56 AM CDT [facility] CO2 24.5 21.0 - 32.0 MMOL/L 12/12/2024 11:56 AM CDT [facility] GLUCOSE 169(H) 74 - 106 MG/DL 12/12/2024 11:56 AM CDT [facility] BUN 21(H) 7 - 18 MG/DL 12/12/2024 11:56 AM CDT [facility] CREATININE S/P/B 1.25 0.70 - 1.30 MG/DL 12/12/2024 11:56 AM CDT [facility] CALCIUM S/P/B 9.2 8.5 - 10.1 MG/DL 12/12/2024 11:56 AM CDT [facility] ANION GAP 8.5 2.0 - 10.0 MMOL/L 12/12/2024 11:56 AM CDT [facility] OSMOLALITY (CALC) 285 MOSM/KG 025 11:56 AM CDT [facility] Comment:REFERENCE RANGE NOT ESTABLISHED GFR ESTIMATE 68(L) >90 ML/MIN/1. 73 M2 12/12/2024 11:56 AM CDT [facility] GFR NOTES GFR REFERENCE S: 12/12/2024 11:56 AM CDT [facility] Comment: THE ESTIMATED GFR IS CALCULATED USING THE 2020 CKD-EPI EQUATION. THE FOLLOWING CATEGORIES FOR GRADING RENAL FUNCTION ARE RECOMMENDED BY THE INTERNATIONAL SOCIETY OF NEPHROLOGY (KDIGO 2012 CLINICAL PRACTICE GUIDELINE). G1,NORMAL OR HIGH: >89 ml/min/1.73 m2 G2,MILDLY DECREASED: 60-89 ml/min/1.73 m2 G3A,MILDLY TO MODERATELY DECREASED: 45-59 ml/min/1.73 m2 G3B,MODERATELY TO SEVERELY DECREASED: 30-44 ml/min/1.73 m2 G4,SEVERELY DECREASED: 15-29 ml/min/1.73 m2 G5,KIDNEY FAILURE: <15 ml/min/1.73 m2 12/12/2024 10:4 9 AM CDT us Laurie Washington COMPUTER SYSTEMS SUPPORT SPECIALIST LABORATORY Final Resul t Performing Organization Address City/[facility] Co de Phone Number [facility] [address] [place] [address], [phone] * DIGOXIN (12/12/2024 10:49 AM CDT) DIGOXIN 1.4 0.8 - 2.0 NG/ML 12/12/2024 12:25 PM CDT [facility] 12/12/2024 10:4 9 AM CDT us Laurie Washington COMPUTER SYSTEMS SUPPORT SPECIALIST LABORATORY Final Resul t Performing Organization Address City/[facility]/ZIP Co de Phone Number [facility] [address] [place] [address], [phone] * ELECTROCARDIOGRAM (11/22/2024 1:01 PM CDT) 11/22/2024 1:01 PM CDT Narrative [facility] - 11/25/2024 7:01 AM CDT [facility] [address] [place] [address] Test Date: 2024-11-22 Pat Name: GAIL TREVINO Department: 105 Room: Gender: Male House Builder: aquilino : 1970 Requested By: KACI DEL RIO Order Number: [id number] Chani MD: Kaci Del Rio Measurements Intervals [place] Rate: 68 P: 0 PA: 0 QRS: -42 QRSD: 102 T: 123 QT: 347 QTc: 371 Interpretive Statements ATRIAL FIBRILLATION LEFT AXIS DEVIATION INCOMPLETE RIGHT BUNDLE BRANCH BLOCK ST DEVIATION AND MODERATE T-WAVE ABNORMALITY, CONSIDER LATERAL ISCHEMIA Procedure Note Kaci Del Rio MD - 11/25/2024 [facility] [address] [place] [address] Test Date: 2024-11-22 Pat Name: GAIL TREVINO Department: 105 Room: Gender: Male House Builder: aquilino : 1970 Requested By: KACI DEL RIO Order Number: [id number] Chani CATALAN: Kaci Del Rio Measurements Intervals [place] Rate: 68 P: 0 PA: 0 QRS: -42 QRSD: 102 T: 123 QT: 347 QTc: 371 Interpretive Statements ATRIAL FIBRILLATION LEFT AXIS DEVIATION INCOMPLETE RIGHT BUNDLE BRANCH BLOCK ST DEVIATION AND MODERATE T-WAVE ABNORMALITY, CONSIDER LATERAL ISCHEMIA us Kaci Del Rio MD PROCEDURES-ORDERABLE NO CHARGE F inal Result [facility]A [facility]TO from Last 3 Months Insurance AETNA AETNA Advance Directives * Full Code (Latest Code Status on File) Date Activated Date Inactivated Comments 07/19/2024 5:15 PM 07/21/2024 8:28 PM Care Teams Elevator Examiner And Adjuster Relationship Specialty Start Date End Date David Chance MD [address] [place] [address] PCP - General INTERNAL MEDICINE 07/19/24 Michael Oconnor MD [address] [facility] [address] [phone] Consulting Physician CARDIOVASCULAR DISEASE 07/20/24 Laurie Washington NP [address] [facility] [address] [place] [address] Nurse Practitioner Nurse Practitioner Acute Care 11/22/24
--- OUTSIDE RECORDS SUMMARY | 2024-12-28 08:21 | XMS_ITS | Clinical Summary ---
Author Organization [facility] Address [address] [place] [address] Care Team Providers Care Demi Chef Name Role Phone David Chance MD Primary Care Provider [phone] Source Comments [facility],non-owned Affiliates and Associated Physician Practices is amultiple site organization consisting of ambulatory clinics and hospital sitesin [place], [place], [place] and [place]. This disclosure is being madepursuant to the Care Everywhere program and may not contain all information available regarding this patient. Last updated 18.[facility] Social History Tobacco Use Types Packs/Day Years [...] VACCINE (1 of 2) 12/25/2019 COVID-19 VACCINE (1 - 2023-2 5 season) 2024 DEPRESSION SCREENING 08/17/2024 INFLUENZA VACCINE (Season Ended) 2025 HIB VACCINE Aged Out No longer eligi [...] age to complete this topic Care Teams Demi Chef Relationship Specialty Start Date End Date David Chance MD [address] [place] [address] PCP - General 12/23/22
--- NOTE | 2024-12-28 08:22 | EST_ITS ---
Patient Info Name: Jono Trevino Age: 54 years : 1970 Gender: Male Ht: 74 in Wt: 347 lbs BSA: 2.94 m2 HR: 67 bpm BP: 101 / 67 mmHg Exam Date: 12/28/2024 9:11 AM Patient Status: O Admit Date: 12/28/2024 Exam Type: CA stress saniya w NM Study Info Indications Other forms of dyspnea - A regadenoson stress test was performed. Staff Referring Physician: Hans Sevilla Attending Provider: Hans Sevilla Exercise Technologist: Yolanda Bobby Exercise Physician: Tao Branch DO Summary 1. 1. Negative lexiscan stress test for ischemic ST changes by ECG criteria. 2. 2. Stable hemodynamics throughout the test. 3. 3. Nuclear scan to follow and will be reported separately. Please correlate with it. 4. 4. Patient informed of the above results. Protocol: Lexiscan Stress ECG Details Stage: REST Duration (min): 0 min : 48 sec HR (bpm): 69 SBP (mmHg): 101 DBP (mmHg): 67 Stage: REST Duration (min): 4 min : 6 sec HR (bpm): 65 SBP (mmHg): 101 DBP (mmHg): 67 Stage: STAGE 1 Duration (min): 0 min : 59 sec HR (bpm): 70 SBP (mmHg): 98 DBP (mmHg): 64 Stage: RECOVERY Duration (min): 1 min : 0 sec HR (bpm): 68 SBP (mmHg): 98 DBP (mmHg): 64 Stage: RECOVERY Duration (min): 2 min : 0 sec HR (bpm): 73 SBP (mmHg): 98 DBP (mmHg): 64 Stage: RECOVERY Duration (min): 3 min : 0 sec HR (bpm): 69 SBP (mmHg): 102 DBP (mmHg): 64 Stage: RECOVERY Duration (min): 3 min : 20 sec HR (bpm): 67 SBP (mmHg): 102 DBP (mmHg): 64 Rest HR: 65 bpm Peak HR: 78 bpm Rest Sys BP: 101 mmHg Peak Sys BP: 102 mmHg Max Pred HR: 165 bpm % Max Pred HR: 47 % Target HR: 140 bpm Max RPP: 7,956 bpm*mmHg Termination Reason: Completed protocol Cardiac Symptoms: Shortness of breath Total Time: 1 min : 0 sec Rest Kim BP: 67 mmHg Peak Kim BP: 64 mmHg Total Dose: 0.4 mg Resting ECG Atrial fibrillation, BRWP. Stress ECG No ST changes. Arrhythmias No other arrhythmias. Report Signatures
== END 2024-12-28 08:11 | disposition home or self-care (01) ==
PROVIDERS: PCP Internal Medicine; Visit Provider Nurse Practitioner Family
DX: R06.09 Other forms of dyspnea (principal)
CPT/HCPCS: 78452; 93017; A9502; J2785

== ENCOUNTER 2025-01-03 10:11 | Outpatient (CLI) | payer OTHER, SELFPAY ==
[2025-01-03 10:24] VITALS: PULSE 64; O2SAT 99
[2025-01-03 10:25] VITALS: PULSE 77; O2SAT 99
--- OUTSIDE RECORDS SUMMARY | 2025-01-03 10:25 | XMS_ITS | Data Portability ---
Author Organization ID - [facility] OFFICE Address [address] [place] [id number] Care Team Providers Care Supervisor [employer] Name Role Phone GLADYS ROJAS Primary Care Provider [phone] Assessment Encounter Date Assessment Date Assessment LastModified [...] Orders Jardiance 10 mg tablet 2023 024 [facility], [address] [place] [address], [address], 4 09:23:09 Jardiance 10 mg tablet 2022 023 [facility], [facility] [place], [address], 3 11:12:55 Patient TargetsNo targets recorded. Patient Instructions Encounter Date Encounter Id Patient Instructions Last Modified By Organization Details Last Modified Time 11/29/2021 [id number] high blood pressure: care instructions [email or web address] Not available 11/29/2021 12:53:18 learning about high blood pressure [email or web address] Not available 11/29/2021 12:53:18 06/06/2022 [id number] Exercise advised Low cholesterol diet advised Low sodium diet advised. [email or web address] Not available 06/06/2022 11:43:37 12/05/2022 [id number] Weight loss 20 pounds Exercise advised Low cholesterol diet advised Low sodium diet advised. [email or web address] Not available 12/05/2022 11:12:30 06/22/2023 [id number] Exercise advised Low cholesterol diet advised Low sodium diet advised. [email or web address] Not available 06/22/2023 12:07:32 12/12/2023 [id number] Weight loss 20 pounds Exercise advised Low [...] Organization Details Recorded Time Peripheral vascular disease 457058307 Active 2022 Radha Escobar [facility], [place] - [facility] 3 11:43:48 Essential hypertension 38111171 Active 2016 Radha Escobar [facility], [place] [facility] 3 11:43:00 Hypercholester olemia 23568060 Active 2016 Sharonjaja Omalley [facility], [place] - [facility] 7 12:49:44 Sleep apnea 50437892 Active 2016 Radha Escobar [facility], [place] - [facility] 3 11:43:02 Cough 01785694 Active 2016 Sharonjaja Omalley [facility], [place] - [facility] 7 12:50:05 Atrial fibrillation 03702669 Active 2016 Radha Escobar [facility] [facility] 7 16:06:35 Myocardial infarction 63502297 Active 2016 Radha Escobar [facility] [facility] 7 16:06:49 Type 2 diabetes mellitus without complication 730073521 Active 2016 Radha Escobar [facility] [facility] 3 11:43:38 Obesity 827768984 Active 2017 Radha Escobar [facility], [place] - [facility] 8 16:39:04 Problem Notes None recorded. Procedures Surgical History Date Name Laterality Status Provider Name and Address Organization Details Recorded Time 03/17/20 17 Cardiac Catheterization completed Sharon Omalley [place] [facility] 04/07/2017 12:52:15 Imaging [...] 06/24/2023 15:29:07 12/15/2023 exercise stress test completed [facility] Info rmation not available 12/23/2023 14:41:31 Procedure [...] Updated DateTime 2 187.96 cm 44.9 kg/m2 808120. 33 g 69 /min 95 % 95 % 132 mm[Hg] 78 mm[Hg] Julián Rosas [facility] 2 12:25:02 Date Recorded Body height Body mass index (BMI) Body weight Heart rate Respiratory rate Oxygen saturation Oxygen saturation in Arterial blood by Pulse oximetry Systolic blood pressure Diastolic blood pressure Provider Name and Address Organization Details Last Updated DateTime 2 187.96 cm 45.6 kg/m2 473596. 29 g 72 /min 16 /min 94 % 94 % 118 mm[Hg] 72 mm[Hg] Julián Rosas [facility] 2 11:24:59 Date Recorded Body height Body mass index (BMI) Body weight Oxygen saturation Oxygen saturation in Arterial blood by Pulse oximetry Heart rate Systolic blood pressure Diastolic blood pressure Provider Name and Address Organization Details Last Updated DateTime 3 187.96 cm 48.5 kg/m2 893937. 92 g 94 % 94 % 63 /min 126 mm[Hg] 70 mm[Hg] WHITNEY PEREZ [facility] 3 10:45:27 Date Recorded Body height Body mass index (BMI) Body weight Heart rate Respiratory rate Oxygen saturation Oxygen saturation in Arterial blood by Pulse oximetry Systolic blood pressure Diastolic blood pressure Provider Name and Address Organization Details Last Updated DateTime 3 187.96 cm 49.2 kg/m2 788982. 88 g 84.99 /min 16 /min 97 % 97 % 142 mm[Hg] 84 mm[Hg] Julián Rosas [facility] 3 11:39:06 Date Recorded Body height Body mass index (BMI) Body weight Heart rate Oxygen saturation Oxygen saturation in Arterial blood by Pulse oximetry Systolic blood pressure Diastolic blood pressure Provider Name and Address Organization Details Last Updated DateTime 4 187.96 cm 50.4 kg/m2 106089. 72 g 52 /min 97 % 97 % 132 mm[Hg] 80 mm[Hg] Magdalena Robina [facility] 4 08:57:03 Social History Question Answer Notes LastModified by Organizat ion Details LastModified Time Tobacco Smoking Status Former Smoker Not Available [facility] 06/19/2020 03:30:41 What Is Your Level Of Caffeine Consumption? Moderate [id number] Information not available 06/19/2020 How Much Tobacco Do You Chew? None [id number] Information not available 06/19/2020 What Type Of Diet Are You Following? REGULAR [id number] Information not available 06/19/2020 Which Illicit Or Recreational Drugs Have You Used? No [id number] Information not available 06/19/2020 Live Alone Or With Others? With Others [email or web address] Information not available 04/07/2017 Marital Status [email or web address] Informatio n not available 04/07/2017 What Was The Date Of Your Most Recent Tobacco Screening? 09/15/2018 [id number] Information not available 06/19/2020 How Much Tobacco Do You Smoke? 0.5 PPD [id number] Information not available 06/19/2020 General Stress Level Low [email or web address] Information not available 04/07/2017 Sex: Unknown Functional Status Question Answer Note LastModified by Organizat ion Details LastModified Time What is your level of alcohol consumption? Occasional [id number] Information not available 06/19/2020 Do you or have you ever used smokeless tobacco? 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 Never used electronic cigarettes [id number] Information not available 06/19/2020 What is your exercise level? None [id number] Information not available 06/19/2020 Mental Status None recorded. Family History Nothing Reported. Medical History Condition Response Diabetes Y Atrial Fibrillation Y Hypertension Y Sleep Apnea Y High Cholesterol Y Past Encounters Encounter ID Performer Location Encounter Start Date Encounter Closed Date Diagnosis/Indication Diagnosis SNOMED-CT Code Diagnosis ICD10 Code Diagnosis Note [id number] Michael Vyas MD [facility] [address] [place] [address] 04/07/2017 11:37:18 04/07/2017 15:16:13 Sleep apnea 97031447 G47.30 On Cpap Essential hypertension 69291223 I10 Patient's blood pressure is {{well-con trolled* [...] nOn Toprol and cardizem Myocardial infarction 22 159547 I21.3 s/p Non-stemiN eeds to be on ASA, and plavixdue to the need for Plavix and Xarelto, asa well as asa, he would be a candidate for Justin trialthis was discussed with vick and hs , they do no want that. Type 2 nayla betes mellitus without complication 561471941 E11.9 [id number] Michael Vyas MD [facility] [address] [place] [address] 05/12/2017 17:01:02 05/13/2017 09:35:08 Essential hypertension 25746023 I10 Patient's blood pressure is {{well-con trolled* [...] grams sodium or less daily). Sleep apnea 68133218 G47 .30 On Cpap Atrial fibrillation 4943 6004 I48.91 He is in NSR nowOn Toprol and cardizem Myocardial infarction 22 918476 I21.3 s/p Non-stemiN eeds to be on ASA, and plavix, will DC Xarelto as he is in NSR now Type 2 nayla betes mellitus without complication 982566165 E11.9 treatment and evaluation by primary care doctor Obesity 261608648 E66.9 [id number] Michael Vyas MD [facility] [address] [place] [address] 08/24/2017 16:40:08 08/25/2017 09:53:52 Essential hypertension 92391978 I10 Sleep apnea 16848346 G47 .30 On Cpap Atrial fibrillation 4943 6004 I48.91 He is in NSR nowOn Toprol and cardizem Myocardial infarction 22 722827 I21.3 s/p Non-stemiN eeds to be on ASA, and plavix, as he is in NSR now Type 2 nayla betes mellitus without complication 327705954 E11.9 treatment and evaluation by primary care doctor Obesity 518187530 E66.9 20 lb. weight loss recommende d over the next 2 months. [id number] Chepe Henry MD [facility] [address] [place] [address] 03/01/2018 10:07:07 03/04/2018 15:25:17 Essential hypertension 43918994 I10 Patient's blood pressure is {{well-con trolled* [...] grams sodium or less daily). Sleep apnea 66359320 G47 .30 On Cpap. Tolerates. Atrial fibrillation 4943 6004 I48.91 He is in NSR now. On Toprol and cardizem. Has [id number] Sc risk score of 3, with unadjusted CVA risk of 3.2%/year. Obtain 48 hour Holter as afib was reportedly only at time of HI. Consider Xarelto if afib on Holter. Myocardial infarction 22 374444 I21.3 s/p Non-stemi 03/01/18 Needs to be on ASA, and Plavix, as he is in NSR now. Had LDL 69 on statin 04/2018. Obtain repeat FLP. Type 2 nayla betes mellitus without complication 803306660 E11.9 treatment and evaluation by primary care doctor Obesity 430010169 E66.9 20 lb. weight loss recommende d over the next 2 months. [id number] Chepe Henry MD [facility] [address] [place] [address] 03/31/2018 14:20:13 08/20/2018 10:32:00 Essential hypertension 83943981 I10 Mild concentric left ventricula r hypertroph [...] qd 03/31/18.BM P/Mg 3 wks. Sleep apnea 63716996 G47 .30 On Cpap. Tolerates. Atrial fibrillation 4943 6004 I48.91 He is in NSR now. On Toprol and cardizem. Has [id number]-MS Sc risk score of 3, with unadjusted CVA risk of 3.2%/year. Had 48Hr Holter Monitor on 03/29/18 showed NSR, Sinus Tachycardi a and Sinus Arrhythma. No atrial fibrillati on episodes. Had considered Xarelto if afib on Holter but since no afib detected since HI, continue ASA 81 mg for afib and CAD, with Plavix since s/p HI. Myocardial infarction 22 097753 I21.3 s/p Non-stemi 03/01/18 Needs to be on ASA, and Plavix, as he is in NSR now. Had LDL 69 on statin 04/2018. Obtain repeat FLP. Type 2 nayla betes mellitus without complication 529536112 E11.9 treatment and evaluation by primary care doctor Obesity 926129147 E66.9 20 lb. weight loss recommende d over the next 2 months. Hypercholesterolemia 136 58573 E78.00 Needs to keep LDL less than 70, and HDL more than : LDL 69. Obtain FLP. [id number] Chepe Henry MD [facility] [address] [place] [address] 06/02/2018 13:31:11 06/02/2018 14:42:34 Essential hypertension 00265073 I10 Mild concentric left ventricula r hypertroph [...] qd 06/02/18. BMP/Mg 3 wks. Sleep apnea 55239856 G47 .30 Mild pulm. HTN. On Cpap. Tolerates. Atrial fibrillation 4943 6004 I48.91 He is in NSR now. On Toprol and cardizem. Has [id number]-IX Sc risk score of 3, with unadjusted CVA risk of 3.2%/year. Had 48Hr Holter Monitor on 03/29/18 showed NSR, Sinus Tachycardi a and Sinus Arrhythma. No atrial fibrillati on episodes. Had considered Xarelto if afib on Holter but since no afib detected since HI, continue ASA 81 mg for afib and CAD, with Plavix since s/p HI. Myocardial infarction 22 789605 I21.3 s/p Non-STEMI (03/2017). Needs to be on ASA, and Plavix, as he is in NSR now. Had LDL 63 on statin 04/2018. Type 2 nayla betes mellitus without complication 714534651 E11.9 treatment and evaluation by primary care doctor Obesity 986321632 E66.9 20 lb. weight loss recommende d over the next 2 months. Hypercholesterolemia 136 80285 E78.00 Needs to keep LDL less than 70, and HDL more than : LDL 69. Had 04-23-2018 : LDL: 63 Continue statin. [id number] Chepe Henry MD [facility] [address] [place] [address] 09/15/2018 11:21:07 09/15/2018 12:57:26 Essential hypertension 48125876 I10 Mild concentric left ventricula r hypertroph [...] to f/u mild increased K. Sleep apnea 77542690 G47 .30 Mild pulm. HTN. On Cpap. Tolerates. Atrial fibrillation 4943 6004 I48.91 He is in NSR now. On Toprol and cardizem. Has [id number]-RS Sc risk score of 3, with unadjusted CVA risk of 3.2%/year. Had 48Hr Holter Monitor on 03/29/18 showed NSR, Sinus Tachycardi a and Sinus Arrhythma. No atrial fibrillati on episodes. Had considered Xarelto if afib on Holter but since no afib detected since HI, continue ASA 81 mg for afib and CAD, with Plavix since s/p HI. Patient agrees with no anticoagul ant after discussing risks and benefits. Myocardial infarction 22 661669 I21.3 s/p Non-STEMI (03/2017). Needs to be on ASA, and Plavix, as he is in NSR now. Had LDL 63 on statin 04/2018. Type 2 nayla betes mellitus without complication 298843435 E11.9 treatment and evaluation by primary care doctor Obesity 394556061 E66.9 20 lb. weight loss recommende d over the next 2 months. Hypercholesterolemia 136 59076 E78.00 Needs to keep LDL less than 70, and HDL more than /2016: LDL 69. Had 04-23-2018 : LDL: 63 Continue statin. [id number] Chepe Henry MD [facility] [address] [place] [address] 11/15/2018 14:35:47 11/15/2018 16:30:35 Essential hypertension 44187912 I10 Mild concentric left ventricula r hypertroph [...] tartate 100 mg bid 11/15/18. Sleep apnea 11864362 G47 .30 Mild pulm. HTN. On Cpap. Tolerates. Atrial fibrillation 4943 6004 I48.91 He is in regular rhythm now. On Toprol and cardizem. Has WFF5ZL2-XI Sc risk score of 3, with unadjusted CVA risk of 3.2%/year. Had 48Hr Holter Monitor on 03/29/18 showed NSR, Sinus Tachycardi a and Sinus Arrhythma. No atrial fibrillati on episodes. Had considered Xarelto if afib on Holter but since no afib detected since HI, continue ASA 81 mg for afib and CAD, with Plavix since s/p HI. Patient agrees with no anticoagul ant after discussing risks and benefits. Myocardial infarction 22 852584 I21.3 s/p Non-STEMI (03/2017). No PCI at that time. Needs to be on ASA, and Plavix, as he is in NSR now. Had LDL 63 on statin 04/2018. Type 2 nayla betes mellitus without complication 442270123 E11.9 treatment and evaluation by primary care doctor Obesity 711724684 E66.9 20 lb. weight loss recommende d over the next 2 months. Hypercholesterolemia 136 06673 E78.00 Needs to keep LDL less than 70, and HDL more than /2016: LDL 69. Had 04-23-2018 : LDL: 63 Continue statin. [id number] Chepe Henry MD [facility] [address] [place] [address] 04/04/2019 10:46:13 04/04/2019 11:25:26 Myocardial infarction 25550756 I21.3 s/p Non-STEMI (03/2017). No PCI at that time. Needs to be on ASA, and Plavix, as he is in NSR now. Had LDL 63 on statin 04/2018. Essential hypertension 50792222 I10 Mild concentric left ventricula r hypertroph [...] tartate 100 mg bid 11/15/18. Sleep apnea 40141992 G47 .30 Mild pulm. HTN. WIll repeat 2 D echo before next visit to reassess On Cpap. Tolerates. Atrial fibrillation 4943 6004 I48.91 He is in regular rhythm now. On Toprol and cardizem. Has HQB2KO3-KS Sc risk score of 3, with unadjusted CVA risk of 3.2%/year. Had 48Hr Holter Monitor on 03/29/18 showed NSR, Sinus Tachycardi a and Sinus Arrhythma. No atrial fibrillati on episodes. Had considered Xarelto if afib on Holter but since no afib detected since HI, continue ASA 81 mg for afib and CAD, with Plavix since s/p HI. Patient agrees with no anticoagul ant after discussing risks and benefits. Type 2 nayla betes mellitus without complication 357827508 E11.9 treatment and evaluation by primary care doctor Obesity 350944086 E66.9 20 lb. weight loss recommende d over the next 2 months. Hypercholesterolemia 136 48909 E78.00 Needs to keep LDL less than 70, and HDL more than /2017: LDL 69. Had 04-23-2018 : LDL: 63 Continue statin. [id number] Michael Vyas MD [facility] [address] [place] [address] 07/01/2019 10:23:23 07/03/2019 20:40:07 Myocardial infarction 23863077 I21.3 s/p Non-STEMI (03/2017). No PCI at that time. Needs to be on ASA, as he is in NSR now. Will d/c Plavix today ( 9). Had LDL 63 on statin 04/2018. Essential hypertension 82435943 I10 Mild concentric left ventricula r hypertroph [...] tartate 100 mg bid 11/15/18. Sleep apnea 65993280 G47 .30 Mild pulm. On Cpap. Tolerates. Atrial fibrillation 4943 6004 I48.0 He is in regular rhythm now. On Toprol and cardizem. Full dose ASA. Has OES5UE2-HL Sc risk score of 2. Had 48Hr Holter Monitor on 03/29/18 showed NSR, Sinus Tachycardi a and Sinus arrhythmia . No atrial fibrillati on episodes. Had considered Xarelto if afib on Holter but since no afib detected since HI, continue ASA 81 mg for afib and CAD, with Plavix since s/p HI. Patient agrees with no anticoagul ant after discussing risks and benefits. Type 2 nayla betes mellitus without complication 007994559 E11.9 treatment and evaluation by primary care doctor Obesity 690012618 E66.9 20 lb. weight loss recommende d over the next 2 months. Hypercholesterolemia 136 57601 E78.2 Needs to keep LDL less than 70, and HDL more than : LDL 69. Had 04-23-2018 : LDL: 63 Continue Atorvastat in 20mg qhs [id number] Michael Vyas MD [facility] [address] [place] [address] 12/20/2019 12:58:15 12/20/2019 14:07:31 Myocardial infarction 33641215 I21.3 s/p Non-STEMI (03/2017). No PCI at that time. Needs to be on ASA, as he is in NSR now. Will d/c Plavix today ( 9). Had LDL 63 on statin 04/2018. Essential hypertension 26381260 I10 Mild concentric left ventricula r hypertroph [...] tartate 100 mg bid 11/15/18. Sleep apnea 68629277 G47 .30 Mild pulm. On Cpap. Tolerates. Atrial fibrillation 4943 6004 I48.0 He is in regular rhythm now. On Toprol and cardizem. Full dose ASA. Has FAR1LU7-RS Sc risk score of 2. Had 48Hr Holter Monitor on 03/29/18 showed NSR, Sinus Tachycardi a and Sinus arrhythmia . No atrial fibrillati on episodes. Had considered Xarelto if afib on Holter but since no afib detected since HI, continue ASA 81 mg for afib and CAD, with Plavix since s/p HI. Patient agrees with no anticoagul ant after discussing risks and benefits. Type 2 nayla betes mellitus without complication 773940399 E11.9 treatment and evaluation by primary care doctor Obesity 092328517 E66.9 20 lb. weight loss recommende d over the next 2 months. Hypercholesterolemia 136 93788 E78.2 Needs to keep LDL less than 70, and HDL more than : LDL 69. Had 04-23-2018 : LDL: 63 Continue Atorvastat in 20mg qhs [id number] Michael Vyas MD [facility] [place] [address] 06/26/2020 11:48:43 06/26/2020 12:54:55 Myocardial infarction 66383220 I21.3 06/26/2020 s/p Non-STEMI (03/2017). No PCI at that time. Currently on ASA 325, plavix d/cdTreadm ill Myoview Stress test, has high [place] Risk score. Has Known CAD, or CAD risk equivalent . To look for any ischemia. Previously Needs to be on ASA, as he is in NSR now. Will d/c Plavix today ( 9). Had LDL 63 on statin 04/2018. Essential hypertension 98212926 I10 06/26/20 Elevated today in the office. [...] tartate 100 mg bid 11/15/18. Sleep apnea 28377889 G47 .30 06/26/2020 Mild pulm. On Cpap. Reports nightly compliance . Dr. Mahmood. Atrial fibrillation 4943 6004 I48.0 06/26/20He is in regular rhythm now. On Toprol and cardizem. Full dose ASA. Has [id number] Sc risk score of 2. Had 48Hr Holter Monitor on 03/29/18 showed NSR, Sinus Tachycardi a and Sinus arrhythmia . No atrial fibrillati on episodes. Had considered Xarelto if afib on Holter but since no afib detected since HI, continue ASA 81 mg for afib and CAD, with Plavix since s/p HI. Patient agrees with no anticoagul ant after discussing risks and benefits. Type 2 nayla betes mellitus without complication 527610148 E11.9 06/26/2020 treatment and evaluation by primary care doctor Obesity 969815048 E66.9 06/26/2020 lb. weight loss recommende d over the next 2 months. Hypercholesterolemia 136 23578 E78.2 Needs to keep LDL less than 70, and HDL more than 409/2016: LDL 69. Had 04-23-2018 : LDL: 63 Continue Atorvastat in 20mg qhs [id number] Michael Vyas MD [facility] [address] [place] [address] 08/21/2020 15:32:28 08/21/2020 16:24:36 Myocardial infarction 15046582 I21.3 s/p NSTEMI (03/2017) LHC 04/03/2017 : [...] consider LHC is symptoms occur. Essential hypertension 34816421 I10 Fair control on current regimen Sleep apnea 08136889 G47 .30 Compliant with nightly CPAP use Atrial fibrillation 4943 6004 I48.0 PIH2QM6-YS Sc score = 2 Remains asymptomat icin NSR 08/21/2020 Rate controlled with metoprolol and Cardizem 48 hour holter monitor on 03/29/2018 : Normal sinus rhythm. Sinus bradycardi a. Sinus arrhythmia . Rare PVC's. Occasional PAC's Previously cconsidere d Xarelto if AFib on Holter but since no AFib detected since HI, continue ASA 81mg for AFib. Type 2 nayla betes mellitus without complication 693009167 E11.9 Borderline ; treatment and evaluation by primary care doctor. Discussed importance of adequate glycemic control to minimize cardiovasc ular disease progressio n, A1C goal of < 7% for type 2 DM. Obesity 474562795 E66.9 20lb weight loss recommende d over the next 2 months Hypercholesterolemia 136 41620 E78.2 Needs to keep LDL less than 70, and HDL more than 40. 04/23/2018 LDL 63Continue atorvastat in 20mgWill get fasting lipids for follow-up [id number] Josué Jean MD [facility] [address] [place] [address] 03/05/2021 11:50:33 03/06/2021 09:36:17 Essential hypertension 47697336 I10 Controlled on current regimen Sleep apnea 36397725 G47 .30 Compliant with nightly CPAP use Atrial fibrillation 4943 6004 I48.0 [id number] Sc score = 2Remains asymptomat icRate controlled with metoprolol and Cardizem 48 hour holter monitor 03/29/2018 : Normal sinus rhythm. Sinus bradycardi a. Sinus arrhythmia . Rare PVC's. Occasional PAC's Previously considered Xarelto if AFib on holter but since no AFib detected since HI, continue ASA 81mg for AFib. Type 2 nayla betes mellitus without complication 324480506 E11.9 Borderline ; treatment and evaluation by primary care doctor. Discussed importance of adequate glycemic control to minimize cardiovasc ular disease progressio n, A1C goal of < 7% for type 2 DM. Obesity 839813503 E66.9 20 lb weight loss recommende d over the next 2 months Hypercholesterolemia 136 99543 E78.2 Needs to keep LDL less than 70, and HDL more than 40. 018 LDL 63Continue atorvastat in 20mgWill get fasting lipids for follow-up Myocardial infarction 22 330082 I21.3 s/p NSTEMI (03/2017) [facility] 04/03/2017 : Mild to moderate coronary disease with single vessel disease in the LAD noted. Normal left ventricula r systolic function. TDM 07/11/2020 : Positive stress test. Normal LV systolic function. Reversible defect consistent with ischemia in anterior area. Exercise tolerance: poor. LVEF 58% He remains asymptomat ic at this time. We will continue maximal medical treatment and consider [facility] is symptoms occur. [id number] Michael Vyas MD [facility] [address] [place] [address] 06/18/2021 11:50:08 06/18/2021 13:00:19 Myocardial infarction 94286554 I21.3 s/p NSTEMI (03/2017) [facility] 04/03/2017 : Mild to moderate coronary disease [...] non complkianc e with meds. Essential hypertension 24526927 I10 Controlled on current regimen Sleep apnea 66930509 G47 .30 Compliant with nightly CPAP use Atrial fibrillation 4943 6004 I48.0 [id number] Sc score = 2Remains asymptomat icRate controlled with metoprolol and Cardizem 48 hour holter monitor 03/29/2018 : Normal sinus rhythm. Sinus bradycardi a. Sinus arrhythmia . Rare PVC's. Occasional PAC's Previously considered Xarelto if AFib on holter but since no AFib detected since HI he was taken off . but now with new change, continue ASA 325 mg for AFib. F/U 3 months Type 2 nayla betes mellitus without complication 716291868 E11.9 Borderline ; treatment and evaluation by primary care doctor. Discussed importance of adequate glycemic control to minimize cardiovasc ular disease progressio n, A1C goal of < 7% for type 2 DM. Obesity 530211873 E66.9 20 lb weight loss recommende d over the next 2 months Hypercholesterolemia 136 67010 E78.2 Needs to keep LDL less than 70, and HDL more than 40.LIPID PANEL, BLOOD 03/05/2021 12:00am 03/05/2021 : Cholestero l 123,Trigly cerides 98,HDL 37,,LDL 61Continue atorvastat in 20mg 84285 Michael Vyas MD [place] [facility] [place] [address] 08/30/2021 11:23:56 08/30/2021 12:37:22 Myocardial infarction 41736218 I21.3 s/p NSTEMI (03/2017) LHC 04/03/2017 : [...] non complkianc e with meds. Essential hypertension 64235288 I10 Controlled on current regimen Sleep apnea 30547634 G47 .30 Compliant with nightly CPAP use Atrial fibrillation 4943 6004 I48.0 [id number] Sc score = 2Remains asymptomat icRate controlled with metoprolol and Cardizem 48 hour holter monitor 03/29/2018 : Normal sinus rhythm. Sinus bradycardi a. Sinus arrhythmia . Rare PVC's. Occasional PAC's Previously considered Xarelto if AFib on holter but since no AFib detected since [place] he was taken off . but now with new change, continue ASA 325 mg for AFib. F/U 3 months Type 2 nayla betes mellitus without complication 642791187 E11.9 Borderline ; treatment and evaluation by primary care doctor. Discussed importance of adequate glycemic control to minimize cardiovasc ular disease progressio n, A1C goal of < 7% for type 2 DM. Obesity 371898193 E66.9 20 lb weight loss recommende d over the next 2 months Hypercholesterolemia 136 33244 E78.2 Needs to keep LDL less than 70, and HDL more than 40.LIPID PANEL, BLOOD 03/05/2021 12:00am 03/05/2021 : Cholestero l 123,Trigly cerides 98,HDL 37,,LDL 61Continue atorvastat in 20mg 29253 Michael Vyas MD [facility] [address] [place] [address] 11/29/2021 12:11:49 11/29/2021 13:00:20 Myocardial infarction 09284486 I21.3 s/p NSTEMI (03/2017)T readmill Myoview Stress test, has high [place] Risk score. Has Known CAD, or CAD risk equivalent . To look for any ischemia. Essential hypertension 30466401 I10 Controlled on current regimen Sleep apnea 85339073 G47 .30 Compliant with nightly CPAP use Atrial fibrillation 4943 6004 I48.0 [id number] Sc score = 2Remains asymptomat icRate controlled with metoprolol and Cardizem 48 hour holter monitor 03/29/2018 : Normal sinus rhythm. Sinus bradycardi a. Sinus arrhythmia . Rare PVC's. Occasional PAC's Previously considered Xarelto if AFib on holter but since no AFib detected since [place] he was taken off . but now with new change, continue ASA 325 mg for AFib. F/U 3 months Type 2 nayla betes mellitus without complication 312747031 E11.9 Borderline ; treatment and evaluation by primary care doctor. Discussed importance of adequate glycemic control to minimize cardiovasc ular disease progressio n, A1C goal of < 7% for type 2 DM. Obesity 001183848 E66.9 20 lb weight loss recommende d over the next 2 months Hypercholesterolemia 136 11206 E78.2 Needs to keep LDL less than 70, and HDL more than 40.LIPID PANEL, BLOOD 03/05/2021 12:00am 03/05/2021 : Cholestero l 123,Trigly cerides 98,HDL 37,,LDL 61Continue atorvastat in 20mg Peripheral vascular disease 039626494 I73.9 Will get arterial doppler, to evaluate severity of peripheral vascular disease 25038 Michael Vyas MD [place] [facility] [place] [address] 06/06/2022 10:34:39 06/06/2022 11:52:45 Myocardial infarction 89013544 I21.3 s/p NSTEMI (03/2017)n egative stress test repeat echo Essential hypertension 97421966 I10 Controlled on current regimen Sleep apnea 98928784 G47 .30 Compliant with nightly CPAP use Atrial fibrillation 4943 6004 I48.0 [id number] Sc score = 2Remains asymptomat icRate controlled with metoprolol and Cardizem 48 hour holter monitor 03/29/2018 : Normal sinus rhythm. Sinus bradycardi a. Sinus arrhythmia . Rare PVC's. Occasional PAC's Previously considered Xarelto if AFib on holter but since no AFib detected since [place] he was taken off . but now with new change, continue ASA 325 mg for AFib. F/U 3 months Type 2 nayla betes mellitus without complication 941852528 E11.9 Borderline ; treatment and evaluation by primary care doctor. Discussed importance of adequate glycemic control to minimize cardiovasc ular disease progressio n, A1C goal of < 7% for type 2 DM. Obesity 073405352 E66.9 20 lb weight loss recommende d over the next 2 months Hypercholesterolemia 136 83261 E78.2 Needs to keep LDL less than 70, and HDL more than 40.LIPID PANEL, BLOOD 03/05/2021 12:00am 03/05/2021 : Cholestero l 123,Trigly cerides 98,HDL 37,,LDL 61Continue atorvastat in 20mgrepeat blood work Peripheral vascular disease 535193020 I73.9 normal ADOLFO done 01/2022 11495 Michael Vyas MD [facility] [address] [place] [address] 12/05/2022 10:17:49 12/05/2022 11:16:16 Myocardial infarction 58727742 I21.3 s/p NSTEMI (03/2017)n egative stress test repeat echo Essential hypertension 17577045 I10 Controlled on current regimen Sleep apnea 53749654 G47 .30 Compliant with nightly CPAP use Atrial fibrillation 4943 6004 I48.0 [id number] Sc score = 2Remains asymptomat icRate controlled with metoprolol and Cardizem 48 hour holter monitor 03/29/2018 : Normal sinus rhythm. Sinus bradycardi a. Sinus arrhythmia . Rare PVC's. Occasional PAC's Previously considered Xarelto if AFib on holter but since no AFib detected since [place] he was taken off . but now with new change, continue ASA 325 mg for AFib. F/U 3 months Type 2 nayla betes mellitus without complication 430304680 E11.9 Borderline ; treatment and evaluation by primary care doctor. Discussed importance of adequate glycemic control to minimize cardiovasc ular disease progressio n, A1C goal of < 7% for type 2 DM. Obesity 556477956 E66.9 20 lb weight loss recommende d over the next 2 months Hypercholesterolemia 136 63493 E78.2 Needs to keep LDL less than 70, and HDL more than 40.LIPID PANEL, BLOOD 03/05/2021 12:00am 03/05/2021 : Cholestero l 123,Trigly cerides 98,HDL 37,,LDL 61Continue atorvastat in 20mgrepeat blood work Peripheral vascular disease 719726646 I73.9 normal ADOLFO done 01/2022 83743 Michael Vyas MD [facility] [address] [place] [address] 06/22/2023 11:28:26 06/22/2023 12:09:01 Myocardial infarction 53146679 I21.3 stable s/p NSTEMI (03/2017)n egative stress test 05/2022 repeat echo Essential hypertension 16076569 I10 Blood pressure is elevated today, but this is only one reading, will keep close follow up, and consider medication change if blood pressure is still elevated next visit. Sleep apnea 76000222 G47 .30 Compliant with nightly CPAP use Atrial fibrillation 4943 6004 I48.0 [id number] Sc score = 2Remains asymptomat icRate controlled with metoprolol and Cardizem 48 hour holter monitor 03/29/2018 : Normal sinus rhythm. Sinus bradycardi a. Sinus arrhythmia . Rare PVC's. Occasional PAC's Previously considered Xarelto if AFib on holter but since no AFib detected since [place] he was taken off . but now with new change, continue ASA 325 mg for AFib. F/U 3 months Type 2 nayla betes mellitus without complication 972444804 E11.9 Borderline ; treatment and evaluation by primary care doctor. Discussed importance of adequate glycemic control to minimize cardiovasc ular disease progressio n, A1C goal of < 7% for type 2 DM. Obesity 952728059 E66.9 20 lb weight loss recommende d over the next 2 months Peripheral vascular disease 602105813 I73.9 normal ADOLFO done 01/2022 537004 Michael Vyas MD [facility] [address] [place] [address] 12/12/2023 08:43:56 12/12/2023 09:30:44 Myocardial infarction 30925980 I21.3 Treadmill Myoview Stress test, has high [place] Risk score. Has Known CAD, or CAD risk equivalent . To look for any ischemia. Essential hypertension 85981179 I10 Blood pressure is elevated today, but this is only one reading, will keep close follow up, and consider medication change if blood pressure is still elevated next visit. Sleep apnea 91736062 G47 .30 Compliant with nightly CPAP use Atrial fibrillation 4943 6004 I48.0 [id number] Sc score = 2Remains asymptomat icRate controlled with metoprolol and Cardizem 48 hour holter monitor 03/29/2018 : Normal sinus rhythm. Sinus bradycardi a. Sinus arrhythmia . Rare PVC's. Occasional PAC's Previously considered Xarelto if AFib on holter but since no AFib detected since [place] he was taken off . but now with new change, continue ASA 325 mg for AFib. F/U 3 months Type 2 nayla betes mellitus without complication 456763155 E11.9 Borderline ; treatment and evaluation by primary care doctor. Discussed importance of adequate glycemic control to minimize cardiovasc ular disease progressio n, A1C goal of < 7% for type 2 DM. Obesity 644885691 E66.9 20 lb weight loss recommende d over the next 2 months Peripheral vascular disease 749421763 I73.9 normal ADOLFO done 01/2022 Dyspnea on exertion 6084 5006 R06.09 Treadmill Myoview Stress test, has high [place] Risk score. Has Known CAD, or CAD risk equivalent . To look for any ischemia. Health Concerns Section Related Observation LastModified by Organization Detai ls LastModified Time None Recorded Concern Status LastModified by Organization Details LastModified Time None Recorded Advance Directives Directive None Recorded Payers Insurance Date Sequence Insurance Name Policy Number Policy Chow Covered Member ID Chow Member ID Guarantor Name 04/06/2017 1 *SELF PAY* Ro lino Trevino 12/10/2023 1 [employer] [id number] Jono Trevino [id number] Jono Trevino 12/12/2023 1 [place] [id number] Jono Trevino [id number] Jono Trevino 12/10/2023 1 [place] [id number] Jono Trevino [id number] 001 Jono Trevino Notes Date Note Type Note Provider Name and Address Organization Details Recorded Time 11/29/2021 text/html 11/29/21CC: Card iac follow-up, dyspnea on [id number] white man with history of CAD s/p [...] missed medication Had been working a lot. [employer]. On his way to work and had [...] heart filling pressures based on elevated E/E. *[facility]: 04/03/17 Mild to moderate coronary disease with single-vessel disease in the LAD noted. Normal left ventricular systolic function. Maximum medical treatement. Risk factor modification. Michael Vyas MD [address] [place], [address], [facility] 11/29/2021 12:53:46 06/06/2022 text/html 06/06/22CC: Card iac follow-up chest pain and dyspnea on cqvioqhr91-yazt-cdu white man with history of CAD s/p [...] missed medication Had been working a lot. [employer]. On his way to work and had [...] heart filling pressures based on elevated E/E. *C: 04/03/17 Mild to moderate coronary disease with single-vessel disease in the LAD noted. Normal left ventricular systolic function. Maximum medical treatement. Risk factor modification. Michael Vyas MD [address] [place], [address], [place] - [facility] 06/06/2022 11:49:22 12/05/2022 text/html 12/05/22CC: Card iac follow-up, [id number]-aes white man with history of CAD s/p [...] medication Had been working a lot. [employer]. On his way to work and [...] heart filling pressures based on elevated E/E. *[facility]: 04/03/17 Mild to moderate coronary disease with single-vessel disease in the LAD noted. Normal left ventricular systolic function. Maximum medical treatement. Risk factor modification. Michael Vyas MD [address] [place], [address], [facility] 12/05/2022 11:12:59 06/22/2023 text/html 06/22/23CC: Card iac follow-up dyspnea on -xdzr-hrq white man with history of CAD s/p [...] missed medication Had been working a lot. [employer]. On his way to work and [...] heart filling pressures based on elevated E/E. *[facility]: 04/03/17 Mild to moderate coronary disease with single-vessel disease in the LAD noted. Normal left ventricular systolic function. Maximum medical treatement. Risk factor modification. KIET villarreal [place] - [facility] 06/22/2023 12:07:36 12/12/2023 text/html 12/12/23CC: Card [facility] ljsxaa-kt79-kvsq-old white man with history of CAD s/p [...] missed medication Had been working a lot. [employer]. On his way to work and had [...] 25,ALT 38,CK 95,TC 134,TG 82,HDL 42,LDL 69. 8/17/17: NA 136, K 4.4, CL 108, CR [...] heart filling pressures based on elevated E/E. *[facility]: 04/03/17 Mild to moderate coronary disease with single-vessel disease in the LAD noted. Normal left ventricular systolic function. Maximum medical treatement. Risk factor modification. Michael Vyas MD [address] [place], [address], [place] [facility] 12/12/2023 09:23:51
--- OUTSIDE RECORDS SUMMARY | 2025-01-03 10:25 | XMS_ITS | Encounter Summary ---
Author Organization [facility] Address [address] [place] [address] Care Team Providers Care Utilization Supervisor Name Role Phone Michael Oconnor MD Unavailable [phone] David Chance MD Primary Care Provider [phone] Laurie Washington SPLUNK CONSULTANT Unavailable [phone] Encounter Details Date Type Department Care Team (Late st Contact Info) Description 07/25/2024 Hospital Follow-up Call [facility] Unit [address] [place] [address] Dionna Sales, RN Social History Tobacco Use Types Packs/Day Years Used Date Smoking Tobacco: Former Cigarettes Q uit: 2020 Smokeless Tobacco: Never [facility] Utilities Answer Date Recorded In the past [...] any time in the past 12 m [facility], were you homeless or living in a alf (including now)? No 07/19/2024 Sex and Gender [...] 02/09/2025 12:30 PM CDT Office Visit [facility] [address] [place] [address] Laurie Washington, SPLUNK CONSULTANT [address] [address] documented as of this encounter Visit Diagnoses Not on filedocumented in this encounter Care Teams Utilization Supervisor Relationship Specialty Start Date End Date David Chance MD [address] [place] [address] PCP - General INTERNAL MEDICINE 07/19/24 Michael Oconnor MD [address] [phone] Consulting Physician CARDIOVASCULAR DISEASE 07/20/24 Laurie Washington, SPLUNK CONSULTANT [address] [facility] [address] [address] Nurse Practitioner Nurse Practitioner Acute Care 11/22/24 documented as of this encounter
--- OUTSIDE RECORDS SUMMARY | 2025-01-03 10:25 | XMS_ITS | CONTINUITY OF CARE DOCUMENT ---
Author Name qiisidoroser, qieuser Address Unknown Organization [facility] Address [address] [place] [address] Phone [phone] Care Team Providers Care [place] Name Role Phone Kirsty Castelan MD Unavailable [phone] GLADYS ROJAS MD Unavailable GLADYS ROJAS MD Unavailable [phone] PROBLEMS Condition Status Date Provider Notes Near [...] Diag nosis - In-person encounter Office Visit [facility] Office Obstructive sleep apnea - on [...] Body Mass Index (Ratio) 39.80 kg/m2 Efraín Csatelan MD weight E&M 310 [lb_av] Kirsty Castelan [...] Payer name Policy type / Coverage type Hilliard red green party ID [facility] [id number] 1 TREATMENT PLAN Date Name Performer Cardiology:His [...] Name Provider Procedure Notes S tatus SNOMED-CT: 158327324 831979 Current Medications Documented Kirsty Castelan MD completed SNOMED-CT: 873794652 Smoking Cessation Counseling Kirsty Castelan MD completed SNOMED-CT: 57803764 Physical Exam, Performed: Pulse Exam of Foot Kirsty Castelan MD completed SNOMED-CT: 848820131 097051 Current Medications Documented Kirsty Castelan MD completed SNOMED-CT: 717118533 Smoking Cessation Counseling Kirsty Castelan MD completed SNOMED-CT: 27969389 Physical Exam, Performed: Pulse Exam of Foot Kirsty Castelan MD completed
--- OUTSIDE RECORDS SUMMARY | 2025-01-03 10:25 | XMS_ITS | Encounter Summary ---
Author Organization [facility] Address [address] [facility] [place] [address] Care Team Providers Care Car Rental Agency Manager Name Role Phone David Chance MD Primary Care Provider [phone] Encounter Details Date Type Department Care Team (Late st Contact Info) Description 04/05/2019 Lab Requisition [facility] DermPath Lab [address] [facility] [place] [address] Loretta Machado DO [address] [facility] [address] [place] [address] Social History Tobacco Use Types Packs/Day Years [...] AM CDT) Case Report Dermatopathology Report Case: [id number] Authorizing Provider: Loretta Machado DO Collected: 04/04/2019 12:00 AM Ordering Location: [facility] DermPath Lab Received: 04/05/2019 12:08 PM Pathologist: Courtney Alonzo MD Specimens: A) - Skin, left chest B) - Skin, left forearm 11:53 AM CDT DERMATOPATHOLOGY LABORATORY Final Diagnosis Specimen A. SKIN, left chest: BASAL CELL CARCINOMA, SUPERFICIAL MULTIFOCAL (C44.519) Specimen B. SKIN, left forearm: BENIGN VERRUCOUS KERATOSIS (L82.1) TELANGIECTASES (I78.1) 11:53 AM T DERMATOPATHOLOGY LABORATORY at 1153 CDT Clinical History A-B: BCC, non-healing. 11:53 AM CDT DERMATOPATHOLOGY LABORATORY Gross Description Specimen A: Received is one formalin filled container labeled with the patient's name and designated left chest. The specimen consists of a shave measuring 8u7i2lu. Jar 0. Specimen B: Received is one formalin filled container labeled with the patient's name and designated left forearm. The specimen consists of a shave measuring 1b0i5rf. Jar 0. 11:53 AM CDT DERMATOPATHOLOGY LABORATORY [...] a single layer of endothelium. 11:53 AM CDT DERMATOPATHOLOGY LABORATORY Disclaimer An external and internal positive and negative controls are appropriate for the histochemical, immunohistochemical and immunofluorescence stain(s) in this case (if any), except where stated explicitly. The performance characteristics of the stain(s) cited in this report were developed and its performance characteristic determined by the Dermatopathology Laboratory at [facility], directed by Dr. Allison Rivera. These tests need not be, and therefore are not, approved by the [place] Food and Drug Administration. The tests are used for clinical purposes. Billing Codes Specimen Charges Stain Charges 10644 02559 1 1 11:53 AM CDT DERMATOPATHOLOGY LABORATORY Embedded Images 11:53 AM CDT DERMATOPATHOLOGY LABORATORY Pathology/Cytology TISSUE SPECIMEN FROM SKIN / Unknown 04/04/2019 04/05/2019 12:08 PM CDT Miscellaneous samples (specimen) TISSUE SPECIMEN FROM SKIN / Unknown 04/04/2019 04/05/2019 12:08 PM CDT us Loretta Machado DO LAB - PATHOLOGY/CYTOLOGY ORDERABLES Final Result DERMATOPATHOLOGY LABORATORY [facility] - Department of Dermatology [address] [place] [address] [address] Floor Lab [address] [phone] documented in this encounter Visit Diagnoses Not on filedocumented in this encounter Care Teams Car Rental Agency Manager Relationship Specialty Start Date End Date David Chance MD [address] [place], [place] [phone] PCP - General 12/23/22 documented as of this encounter
--- OUTSIDE RECORDS SUMMARY | 2025-01-03 10:25 | XMS_ITS | Encounter Summary ---
Author Organization [facility] Address [address] [facility] [place] [address] Care Team Providers Care Surgical Lead Name Role Phone David Chance MD Primary Care Provider [phone] Encounter Details Date Type Department Care Team (Late st Contact Info) Description 03/02/2019 Lab Requisition [facility] Care DermPath Lab [address] [facility] [place] [address] Loretta Machado DO [address] [facility] [address] [place] [address] Social History Tobacco Use Types Packs/Day Years [...] AM CDT) Case Report Dermatopathology Report Case: [id number] Authorizing Provider: Loretta Machado DO Collected: 03/01/2019 12:00 AM Pathologist: Ever Rivera MD Received: 03/02/2019 06:59 AM Specimen: Skin, left post ear 9 4:08 PM CDT DERMATOPATHOLOGY LABORATORY Final Diagnosis Specimen A. SKIN, left post ear: EPIDERMOID CYST (L72.0) 9 4:08 PM CDT DERMATOPATHOLOGY LABORATORY at 1608 CDT Clinical History R/O cyst 9 4:08 PM [...] characteristic determined by the Dermatopathology Laboratory at [facility], directed by Dr. Allison Rivera. These tests need not be, and therefore are not, approved by the [place] Food and Drug Administration. The tests are used for clinical purposes. Billing Codes Specimen Charges Stain Charges 97270 1 9 4:08 PM CDT DERMATOPATHOLOGY LABORATORY Embedded Images 9 4:08 PM CDT DERMATOPATHOLOGY LABORATORY Pathology/Cytolog y TISSUE SPECIMEN FROM SKIN / Unknown 03/01/2019 03/02/2019 6:59 AM CDT us Loretta Machado DO LAB - PATHOLOGY/CYTOLOGY ORDERABLES Final Result DERMATOPATHOLOGY LABORATORY [facility] - Department of Dermatology [address] [place] [address], 5th Floor Lab [address] [place], [place] [address] [place] [address] documented in this encounter Visit Diagnoses Not on filedocumented in this encounter Care Teams Surgical Lead Relationship Specialty Start Date End Date David Chance MD [address] [place] [address] PCP - General 12/23/22 documented as of this encounter
--- OUTSIDE RECORDS SUMMARY | 2025-01-03 10:25 | XMS_ITS | Clinical Summary ---
Author Organization [facility] Address [address] [place] [address] Care Team Providers Care Pocket Assembler Name Role Phone David Chance MD Primary Care Provider [phone] Source Comments [facility],non-owned Affiliates and Associated Physician Practices is amultiple site organization consisting of ambulatory clinics and hospital sitesin [place], [place], [place] and [place]. This disclosure is being madepursuant to the Care Everywhere program and may not contain all information available regarding this patient. Last updated 18.[facility] Social History Tobacco Use Types Packs/Day Years [...] age to complete this topic Care Teams Pocket Assembler Relationship Specialty Start Date End Date David Chance MD [address] [place] [address] PCP - General 12/23/22
--- OUTSIDE RECORDS SUMMARY | 2025-01-03 10:25 | XMS_ITS | Encounter Summary ---
Author Organization [facility] Address [address] [place] [address] Care Team Providers Care It Security Administrator Name Role Phone Michael Oconnor MD Unavailable [phone] David Chance MD Primary Care Provider [phone] Laurie Washington NP Unavailable [phone] Reason for Referral * Procedure (Routine) - Closed Specialty Diagnoses / Procedures Referred By Contac t Referred To Contact Cardiology Diagnoses Atrial fibrillation, unspecified type ([facility]) Procedures Cardioversion external Laurie Washington NP [address], [place]. [address] [place] [address] Phone: tel: fax: Referral ID Status Reason Start Date Expiration Date Visits Re quested Visits Authorized [id number] Closed 11/22/2024 11/22/2025 1 1 Reason for Visit * Reason Onset Date Comments Schedule Procedure 11/22/2024 Encounter Details Date Type Department Care Team (Late st Contact Info) Description 11/22/2024 Telephone [facility] ld [address] [place] [address] Laurie Washington NP [address], [place]. [facility] [place], [place] [address] Schedule Procedure Social History Tobacco Use Types Packs/Day Years Used Date Smoking Tobacco: Former Cigarettes Q uit: 2020 Smokeless Tobacco: Never [facility] Utilities Answer Date Recorded In the past 12 months has th e [employer], gas, oil, or water company threatened to [...] time in the past 12 m [facility], were you homeless or living in a [...] Upcoming Encounters Date Type Department Care Team ([facility] st Contact Info) Description 02/09/2025 12:30 PM CDT Office Visit [facility] eld [address] [place] [address] Laurie Washington NP [address] [facility], [place]. [address] [place] [address] documented as of this encounter Visit Diagnoses Diagnosis Atrial fibrillation, unspecified type (CMS/HCC HHS/HCC)- Primary documented in this encounter Care Teams It Security Administrator Relationship Specialty Start Date End Date David Chance MD [address] [place] [address] PCP - General INTERNAL MEDICINE 07/19/24 Michael Oconnor MD [address] [phone] Consulting Physician CARDIOVASCULAR DISEASE 07/20/24 Laurie Washington NP [address] [facility] [address] [address] Nurse Practitioner Nurse Practitioner Acute Care 11/22/24 documented as of this encounter
--- OUTSIDE RECORDS SUMMARY | 2025-01-03 10:25 | XMS_ITS | Clinical Summary ---
Author Organization [facility] Address [address] [place] [address] Care Team Providers Care Reconciliation Analyst Name Role Phone Michael Oconnor MD Unavailable [phone] David Chance MD Primary Care Provider [phone] Laurie Washington NP Unavailable [phone] Allergies No known active allergies Medications atorvastatin [...] Noted Date Diagnosed Date Bilateral pulmonary embolism ([facility]) 1 09/19/2023 Peripheral vascular disease 06/18/2023 Atrial fibrillation ([facility]) 05/10/2017 Myocardial infarction ([facility]) 05/10/20 17 Type 2 diabetes mellitus wit hout complication ([facility]) 05/10/2017 Hypercholesterolemia 04/07/2017 Essential hypertension 04/07/2017 Near syncope 06/05/2015 Obesity 06/05/2015 Sleep apnea, unspecified 06/05/2015 Encounters Date Type Department Care Team Description 12/29/2024 Telephone [facility] [address] [place] [address] Kaci Del Rio MD Record Request 12/28/2024 Telephone [facility] [address] [place] [address] Kaci Del Rio MD Results 12/14/2024 Telephone [facility] [address] [place] [address] Kaci Del Rio MD Appointment Request 12/12/2024 10:31 AM CDT - 12/12/2024 11:59 PM CDT Hospital Encounter [facility] [place] [facility] [place] [address] [place] [address] Laurie Washington, DESIGN STUDIO CONSULTANT Discharge Disposition: Home or Self Care (Routine Discharge) 12/12/2024 Orders Only [facility] [address] [place] [address] Laurie Washington, DESIGN STUDIO CONSULTANT 12/12/2024 Travel 11/22/2024 1:00 PM CDT Office Visit [facility] [address] [place] [address] Laurie Washingtno, GEOVANI Follow Up; Atrial Fibrillation 11/22/2024 Telephone [facility] [address] [place] [address] Kaci Del Rio MD Schedule Procedure 11/22/2024 Telephone [facility] [address] [place] [address] Laurie Washington NP Schedule Procedure 11/22/2024 Travel 11/18/2024 Telephone [facility] [address] [place] [address] Kaci Del Rio MD Appointment Reminder 11/15/2024 Orders Only [facility] [address] [place] [address] Kaci Del Rio MD from Last 3 Months Family History Medical History Relation Comments No Known Problems Father No Known Problems Mother Relation Status Comments Father Mother Social History Tobacco Use Types Packs/Day Years Used Date Smoking Tobacco: Former Cigarettes Q uit: 2020 Smokeless Tobacco: Never Tobacco Cessation:Counseling Given: Not Answered [facility] Utilities Answer Date Recorded In the [...] any time in the past 12 m [facility], were you homeless or living in [...] 36.6 C (97.8 F) 07/21/2024 3:30 PM CLOTHING ROOM SUPERVISOR Respiratory Rate 12 12/12/2024 1:55 PM CDT [...] Description 02/09/2025 12:30 PM CDT Office Visit [facility] eld [address] [place] [address] Laurie Washington NP [address] [facility] [place]. [address] [place], [place] [address] Health Maintenance Due Date Last Done Comments [...] PM CDT) 12/12/2024 1:27 PM CDT Narrative [facility] - 12/12/2024 6:[address] PM CDT [address] [address] Test Date: 2024-12-12 Pat Name: GAIL TREVINO Department: 1 Room: Gender: Male Pharmacy Director: As : 1970 Requested By: KACI DEL RIO Order Number: [id number] Reading MD: Chinedu Vance Measurements Intervals [place] Rate: 64 P: 0 DC: 0 QRS: -38 QRSD: 127 T: 17 QT: 430 QTc: 445 Interpretive Statements nsr with long pr Left Atrial Enlargement INFERIOR MYOCARDIAL INFARCTION , PROBABLY OLD [40+ ms Q WAVE AND/OR ST/T ABNORMALITY IN II/aVF] Procedure Note Chinedu Vance MD - 12/12/2024 [place] [id number] Test Date: 2024-12-12 Pat Name: GAIL TREVINO Department: 1 Room: Gender: Male Pharmacy Director: As : 1970 Requested By: KACI DEL RIO Order Number: [id number] Reading MD: Chinedu Vance Measurements Intervals [place] Rate: 64 P: 0 DC: 0 QRS: -38 QRSD: 127 T: 17 QT: 430 QTc: 445 Interpretive Statements nsr with long pr Left Atrial Enlargement INFERIOR MYOCARDIAL INFARCTION , PROBABLY OLD [40+ ms Q WAVE AND/OR ST/T ABNORMALITY IN II/aVF] us Kaci Del Rio MD ECG ORDERABLES Final Result [facility] * (ABNORMAL) BASIC METABOLIC PANEL (12/12/2024 10:49 AM CDT) SODIUM S/P/B 134(L) 136 - 145 MMOL/L 12/12/2024 11:56 AM CDT [facility] POTASSIUM S/P/B 4.4 3.5 - 5.1 MMOL/L 12/12/2024 11:56 AM CDT [facility] CHLORIDE S/P/B 101 97 - 115 MMOL/L 12/12/2024 11:56 AM CDT [facility] CO2 24.5 21.0 - 32.0 MMOL/L 12/12/2024 11:56 AM CDT [facility] GLUCOSE 169(H) 74 - 106 MG/DL 12/12/2024 11:56 AM CDT [facility] BUN 21(H) 7 - 18 MG/DL 12/12/2024 11:56 AM CDT [facility] CREATININE S/P/B 1.25 0.70 - 1.30 MG/DL 12/12/2024 11:56 AM CDT [facility] CALCIUM S/P/B 9.2 8.5 - 10.1 MG/DL 12/12/2024 11:56 AM CDT [facility] ANION GAP 8.5 2.0 - 10.0 MMOL/L 12/12/2024 11:56 AM CDT [facility] OSMOLALITY (CALC) 285 MOSM/KG 025 11:56 AM CDT [facility] Comment:REFERENCE RANGE NOT ESTABLISHED GFR ESTIMATE 68(L) >90 ML/MIN/1. 73 M2 12/12/2024 11:56 AM CDT [facility] GFR NOTES GFR REFERENCE S: 12/12/2024 11:56 AM CDT [facility] Comment: THE ESTIMATED GFR IS [...] 10:4 9 AM CDT us Laurie Washington NP LABORATORY Final Resul t [facility] [address] [place] [address], [id number] * DIGOXIN (12/12/2024 10:49 AM CDT) DIGOXIN 1.4 0.8 - 2.0 NG/ML 12/12/2024 12:25 PM CDT [facility] 12/12/2024 10:4 9 AM CDT us Laurie K Winebright DESIGN STUDIO CONSULTANT LABORATORY Final Resul t [facility] [address] [place] [address], [id number] * ELECTROCARDIOGRAM (11/22/2024 1:01 PM CDT) 11/22/2024 1:01 PM CDT Narrative [facility] - 11/25/2024 7:01 AM CDT [place] [address] [place] [address] Test Date: 2024-11-22 Pat Name: GAIL TREVINO Department: 105 Room: Gender: Male Pharmacy Director: aquilino : 1970 Requested By: KACI DEL RIO Order Number: [id number] Reading : Kaci Del Rio Measurements Intervals [place] Rate: 68 P: 0 DC: 0 QRS: -42 QRSD: 102 T: 123 QT: 347 QTc: 371 Interpretive Statements ATRIAL FIBRILLATION LEFT AXIS DEVIATION INCOMPLETE RIGHT BUNDLE BRANCH BLOCK ST DEVIATION AND MODERATE T-WAVE ABNORMALITY, CONSIDER LATERAL ISCHEMIA Procedure Note Kaci Del Rio MD - 11/25/2024 [place] [address] [place] [address] Test Date: 2024-11-22 Pat Name: GAIL TREVINO Department: 105 Room: Gender: Male Pharmacy Director: aquilino : 1970 Requested By: KACI DEL RIO Order Number: [id number] Reading : Kaci Del Rio Measurements Intervals [place] Rate: 68 P: 0 DC: 0 QRS: -42 QRSD: 102 T: 123 QT: 347 QTc: 371 Interpretive Statements ATRIAL FIBRILLATION LEFT AXIS DEVIATION INCOMPLETE RIGHT BUNDLE BRANCH BLOCK ST DEVIATION AND MODERATE T-WAVE ABNORMALITY, CONSIDER LATERAL ISCHEMIA Kaci Del Rio MD PROCEDURES-ORDERABLE NO CHARGE F inal Result [facility] from Last 3 Months Insurance AETNA AETNA Advance Directives * Full Code (Latest Code Status on File) Date Activated Date Inactivated Comments 07/19/2024 5:15 PM 07/21/2024 8:28 PM Care Teams Reconciliation Analyst Relationship Specialty Start Date End Date David Chance MD [address] [place] [address] PCP - General INTERNAL MEDICINE 07/19/24 Michael Oconnor MD [address] [facility] [address] [address] Consulting Physician CARDIOVASCULAR DISEASE 07/20/24 Laurie Washington NP [address] [facility] [address] [place] [address] Nurse Practitioner Nurse Practitioner Acute Care 11/22/24
--- OUTSIDE RECORDS SUMMARY | 2025-01-03 10:25 | XMS_ITS | Encounter Summary ---
Author Organization [facility] Address [address] [place] [address] Care Team Providers Care Pipeline Engineer Name Role Phone Michael Oconnor MD Unavailable [phone] David Chance MD Primary Care Provider [phone] Laurie Washington HAMMERER TAB Unavailable [phone] Reason for Visit * Reason Onset Date Comments Results 12/28/2024 Encounter Details Date Type Department Care Team ([facility] Contact Info) Description 12/28/2024 Telephone [facility] [address] [place] [address] Kaci Nielsen MD [address] [place] [address] Results Social History Tobacco Use Types Packs/Day Years Used Date Smoking Tobacco: Former Cigarettes Q uit: 2020 Smokeless Tobacco: Never [facility] Utilities Answer Date Recorded In the past 12 months has e [employer], Bro[employer], gas, oil, or water [employer] threatened to shut off services in your [...] any time in the past 12 m [facility], were you homeless or living in a detention (including now)? No 07/19/2024 Sex and Gender [...] documented in this encounter Progress Notes * Lyric Booth - 01/03/2025 9:28 AM CDT Spoke with the lab at [facility] and they are not able to fax over stress EKG showing Afib from 12/28/24 and will push images to [facility]. * Lyric Booth - 01/02/2025 3:15 PM CDT Received records. Placed on mokono desk for review. * Lyric Booth - 12/29/2024 3:47 PM CDT Sent record request. * Laurie Washington NP - 12/29/2024 3:28 PM CDT Nuclear stress test 12/28/24 showed no evidence of ischemia. Reported afib on stress ECG. Please obtain some of the stress ECGs that show afib. * Lyrci Booth - 12/29/2024 2:39 PM CDT Received records from [facility]. Put on Laurie's desk for review. * Jillian Paulson RN - 12/28/2024 12:33 PM CDT Patient is not symptomatic with afib, was unaware he was in it again. HR was not high * Sherron Naidu - 12/28/2024 12:22 PM CDT Patient called stating he had stress test done in [place] by his agriculture mechanic, states he is backin AFib. documented in this encounter Plan of Treatment Upcoming Encounters Date Type Department Care Team (Late st Contact Info) Description 02/09/2025 12:30 PM CDT Office Visit [facility] [address] [place] [address] Laurie Washington NP [address] [address] documented as of this encounter Visit Diagnoses Not on filedocumented in this encounter Care Teams Pipeline Engineer Relationship Specialty Start Date End Date David Chance MD [address] [place] [phone] PCP - General INTERNAL MEDICINE 07/19/24 Michael Oconnor MD [address] [facility] [address] [address] Consulting Physician CARDIOVASCULAR DISEASE 07/20/24 Laurie Washington, GEOVANI [address] [facility], [facility] [address] [address] Nurse Practitioner Nurse Practitioner Acute Care 11/22/24 documented as of this encounter
[2025-01-03 10:26] VITALS: PULSE 88; O2SAT 95
[2025-01-03 10:27] VITALS: PULSE 92; O2SAT 94
[2025-01-03 10:28] VITALS: PULSE 85; O2SAT 97
--- NOTE | 2025-01-03 12:41 | SIXMINWLK ---
Six Minute Walk Test PFT: Six Minute Walk Start: 01/03/25 11:17 Freq: Status: Active Protocol: RPE Activity Type Activity Date Activity User E-sign Co-sign Detail Recorded Client Recorded Date Recorded By Document 01/03/25 10:24 RES [id number] 01/03/25 12:41 RES Document 01/03/25 10:25 RES [id number] 01/03/25 12:41 RES Document 01/03/25 10:26 RES [id number] 01/03/25 12:41 RES Document 01/03/25 10:27 RES [id number] 01/03/25 12:41 RES Document 01/03/25 10:28 RES [id number] 01/03/25 12:41 RES 01/03/25 01/03/25 01/03/25 10:24 10:25 10:26 Six Minute Walk Gender M M M Age [age] Race White White White Test Phase Resting Exercise Exercise Oxygen Delivery Room Air Room Air Room Air Fraction of Inspired Oxygen (%) 21 21 21 Pulse Oximetry (90-100 %) 99 99 95 Pulse Rate (60-100 beats/min) 64 77 88 Activity Tolerance Good Good Fair Rating of Perceived Dyspnea (PD) +1 Mild, +2 Mild, Some +3 Moderate Noticeable to Difficulty, Difficulty, But the Participant Noticeable to Can Continue but Not to an the Observer Observer Rate of Perceived Exertion (1) Very Light (4-6) Moderate (9) Very Hard Activity Activity Activity Number of Complete Laps (1 Lap = 100 Feet) Total Distance Walked (Feet) Total Distance Walked (Meters) Stopped/Paused During Testing - Enter Comment if Yes Symptoms at End of Test Other Symptoms At End of Test Six Minute Walk Comments 01/03/25 01/03/25 10:27 10:28 Six Minute Walk Gender M M Age [age] Race White White Test Phase Exercise Resting Oxygen Delivery Room Air Room Air Fraction of Inspired Oxygen (%) 21 21 Pulse Oximetry (90-100 %) 94 97 Pulse Rate (60-100 beats/min) 92 85 Activity Tolerance Fair Good Rating of Perceived Dyspnea (PD) +4 Severe +2 Mild, Some Difficulty, Difficulty, Participant Noticeable to Cannot Continue the Observer Rate of Perceived Exertion (9) Very Hard (2-3) Light Activity Activity Number of Complete Laps (1 Lap = 100 3 Feet) Total Distance Walked (Feet) 300 Total Distance Walked (Meters) 91.43 Stopped/Paused During Testing - Enter Yes Comment if Yes Symptoms at End of Test Leg/Hip Pain Other Symptoms At End of Test SOB Six Minute Walk Comments Patient stopped after 3 minutes due to SOB and leg weakness.
--- NOTE | 2025-01-06 23:09 | P.PCNPFT_ITS ---
PFT Procedure Performed PFT Procedure Performed Spirometry with Pre/Post Bronchodilator Plethysmography (Lung Vol) Diffusing Cap (DLCO) Flow Vol Loop PFT Interpretation DOS: 01/03/2025 REQUESTING: Hans Sevilla APRN REASON FOR TESTING: Shortness of breath PULMONARY FUNCTION TESTS Results are reliable and reproducible. Repeatability of spirometry FEV1 maneuver pre and post bronchodilator is Grade A. Cris Cotton Dust reference equations were used. Spirometry: The pre-bronchodilator FEV1 is 2.85 L, 67% predicted. The pre- bronchodilator FVC is 3.49 L, 69% predicted. The FEV1/FVC ratio is 77%, normal. After bronchodilator, the FEV1 is 2.85 L, 70%, +3%. After bronchodilator, the FVC is 3.49 L, 68%,-2%. The FEV1/FVC ratio is 81%. Lung volumes: The total lung capacity is 6.38 L, 83%. The residual volume is 2.82 L, 110%. The RV/TLC is 44%. FRC is 3.99 L, 124%, normal. Airway resistance is normal. Diffusion: DLCO is 16.7, 46%, moderately decreased. The DLCO/VA is 3.39, 87%, normal. Flow volume loop: The flow volume loop shows normal. IMPRESSION: Preserved ratio with impaired spirometry, no response to bronchodilator, normal lung volumes and moderate diffusion impairment which corrects for alveolar volume. This pattern may be seen in current or former smokers. Compared to his prior study 06/13/2022, he has had a significant loss in the FEV1 and FVC with the ration being preserved, as before. Prior FEV1 was 3.40 L, 107% predicted and the FVC was 4.28 L, 98% predicted. The FEV1/FVC ratio was similar to the current one. He did not have a response to bronchodilator on the prior study, same as current study. His lung volumes were in the normal range however the total lung capacity was 7.78 L, significantly higher compared to TLC now, 6.28 l. The DLCO was 22.6, 90% and now is much lower at 16.7 and 46%. The diffusing capacity adjusted for alveolar volume was normal in 2021 however it was significantly higher than it is now, 4.05, 121%. Caitlyn Mustafa MD
--- NOTE | 2025-01-06 23:29 | P.PCNSIX_ITS ---
Six Minute Walk Procedure Procedure Performed Pulmonary Stress Test (6 min walk) Six Minute Walk Six Minute Walk: DATE OF SERVICE: 01/03/2025 REQUESTING: Hans Sevilla APRN REASON FOR TESTING: Shortness of breath SIX MINUTE WALK This test was conducted per ATS guidelines. The initial saturation was 99%, and initial heart rate was 64 beats per minute. The patient walked however he had to stop after 3 minutes due to shortness of breath and leg weakness. His rate of perceived exertion was very hard at the 3 minute binh. The saturation at the end of testing was 94%, and the heart rate was 92 beats per minute. He walked a distance of 91.4 m/300 ft during 3 minutes. His perceived dyspnea was mild during recovery, saturation returned to his higher baseline 97% and pulse was 85 beats per minute. IMPRESSION: This patient did not have cheo hypoxemia, did not require supp lemental oxygen with exertion. Distance walked is less than expected for his age. Caitlyn Mustafa MD
== END 2025-01-03 10:12 | disposition home or self-care (01) ==
LOC: CHSCARD 10:13
PROVIDERS: PCP Internal Medicine; Visit Provider Nurse Practitioner Family
DX: R06.09 Other forms of dyspnea (principal); R94.2 Abnormal results of pulmonary function studies
CPT/HCPCS: 94060; 94618; 94726; 94729

== ENCOUNTER 2025-03-23 08:44 | Outpatient (CLI) | payer OTHER, SELFPAY ==
--- OUTSIDE RECORDS SUMMARY | 2025-03-23 08:52 | XMS_ITS | Encounter Summary ---
Author Organization [facility] Address [address] [place] [address] Care Team Providers Care Travel Counselor Automobile Club Name Role Phone David Chance MD Primary Care Provider [phone] Encounter Details Date Type Department Care Team (Late st Contact Info) Description 04/05/2019 Lab Requisition [facility] [address] [facility] [place] [address] Loretta Machado DO [address] [facility] [address] [place] [address] Social History Tobacco Use Types Packs/Day Years [...] AM CDT) Case Report Dermatopathology Report Case: [id number] Authorizing Provider: Loretta Machado DO Collected: 04/04/2019 12:00 AM Ordering Location: [facility] Received: 04/05/2019 12:08 PM [...] The specimen consists of a shave measuring [id number]. Jar 0. Specimen B: Received is one formalin filled container labeled with the patient's name and designated left forearm. The specimen consists of a shave measuring [id number]. Jar 0. 11:53 AM CDT DERMATOPATHOLOGY LABORATORY [...] characteristic determined by the Dermatopathology Laboratory at [facility], directed by Dr. Allison Rivera. These tests need not be, and therefore are not, approved by the [place] Food and Drug Administration. The tests are used for clinical purposes. Billing Codes Specimen Charges Stain Charges 07598 20418 1 1 11:53 AM CDT DERMATOPATHOLOGY LABORATORY Embedded Images 11:53 AM CDT DERMATOPATHOLOGY LABORATORY Pathology/Cytology TISSUE SPECIMEN FROM SKIN / Unknown 04/04/2019 04/05/2019 12:08 PM CDT Miscellaneous samples (specimen) TISSUE SPECIMEN FROM SKIN / Unknown 04/04/2019 04/05/2019 12:08 PM CDT us Loretta Machado DO LAB - PATHOLOGY/CYTOLOGY ORDERABLES Final Result DERMATOPATHOLOGY LABORATORY [facility] - Department of Dermatology [address] [place] [address] 5th Floor Lab [address] [phone] documented in this encounter Visit Diagnoses Not on filedocumented in this encounter Care Teams Travel Counselor Automobile Club Relationship Specialty Start Date End Date David Chance MD [address] [place], [place] [id number] PCP - General 12/23/22 documented as of this encounter
--- OUTSIDE RECORDS SUMMARY | 2025-03-23 08:52 | XMS_ITS | Clinical Summary ---
Author Organization [facility] Address [address] [place] [address] Care Team Providers Care Signal Maintainer Helper Name Role Phone David Chance MD Primary Care Provider [phone] [facility],non-owned Affiliates and Associated Physician Practices is amultiple site organization consisting of ambulatory clinics and hospital sitesin [place], [place], [place] and [place]. This disclosure is being madepursuant to the Care Everywhere program and may not contain all information available regarding this patient. Last updated 18.[facility] Social History Tobacco Use Types Packs/Day Years [...] season) 2024 DEPRESSION SCREENING 08/17/2024 INFLUENZA VACCINE (#1) 2025 HIB VACCINE Aged Out No longer [...] age to complete this topic Care Teams Signal Maintainer Helper Relationship Specialty Start Date End Date David Chance MD [address] [place] [address] PCP - General 12/23/22
--- OUTSIDE RECORDS SUMMARY | 2025-03-23 08:52 | XMS_ITS | Encounter Summary ---
Author Organization [facility] Health Address [address] [facility] [place] [address] Care Team Providers Care Loader Technician Name Role Phone David Chance MD Primary Care Provider [phone] Encounter Details Date Type Department Care Team (Late st Contact Info) Description 03/02/2019 Lab Requisition [facility] Care DermPath Lab [address] [facility], [place] [address] Loretta Machado DO [address] [facility] 3 DEPT [place] [address] Social History Tobacco Use Types Packs/Day Years [...] AM CDT) Case Report Dermatopathology Report Case: [id number] Authorizing Provider: Loretta Machado DO Collected: 03/01/2019 [...] characteristic determined by the Dermatopathology Laboratory at [facility], directed by Dr. Allison Rivera. These tests need not be, and therefore are not, approved by the [place] Food and Drug Administration. The tests are used for clinical purposes. Billing Codes Specimen Charges Stain Charges 15555 1 9 4:08 PM CDT DERMATOPATHOLOGY LABORATORY Embedded Images 9 4:08 PM CDT DERMATOPATHOLOGY LABORATORY Pathology/Cytolog y TISSUE SPECIMEN FROM SKIN / Unknown 03/01/2019 03/02/2019 6:59 AM CDT us Loretta Machado DO LAB - PATHOLOGY/CYTOLOGY ORDERABLES Final Result DERMATOPATHOLOGY LABORATORY [facility] - Department of Dermatology [address] [place] [address], 5th Floor Lab B [place], [place] [id number] [place] [address] documented in this encounter Visit Diagnoses Not on filedocumented in this encounter Care Teams Loader Technician Relationship Specialty Start Date End Date David Chance MD [address] [place] [address] PCP - General 12/23/22 documented as of this encounter
[2025-03-23 08:58] LABS: Hematocrit 38.2 % (40.0-54.0); Hemoglobin 12.2 g/dL (14.0-18.0); Immature Granulocyte Percent A 0.6 % (0.0-0.0); Lymphocytes Absolute Auto 3.04 K/mm3 (1.10-4.50); Mean Corpuscular HGB Conc 31.9 g/dL (32-36); Mean Corpuscular Hemoglobin 26.1 pg (27.0-31.0); Mean Corpuscular Volume 81.8 fL (78.0-102.0); Nucleated Red Blood Cells Absolute Auto 0.00 K/mm3 (0.00-0.00); Nucleated Red Blood Cells Perc 0.0 % (0-0.0); Platelet Count Result 315 K/mm3 (150-420); Red Blood Count 4.67 M/mm3 (4.70-6.10); White Blood Count 9.7 K/mm3 (4.8-10.8)
[2025-03-23 09:10] LABS: Hemoglobin A1C 7.2 % (<5.7)
[2025-03-23 09:52] LABS: Alanine Aminotransferase 25 U/L (6-50); Albumin Level 4.4 g/dL (3.5-5.1); Alkaline Phosphatase 108 U/L (38-126); Anion Gap 11 mmol/L (4-12); Aspartate Amino Transferase 32 U/L (17-59); Bilirubin,Total 0.8 mg/dL (0.2-1.3); Blood Urea Nitrogen 19 mg/dL (9-20); Calcium 9.8 mg/dL (8.4-10.2); Carbon Dioxide 24 mmol/L (22-30); Chloride 101 mmol/L (98-107); Estimated Glomerular Filt Rate > 60; Glucose 165 mg/dL (65-110); Magnesium 2.1 mg/dL (1.6-2.3); Osmolality Calculated 288 mOsm/kg (285-295); Potassium 4.8 mmol/L (3.4-5.0); Sodium 136 mmol/L (137-145); Total Protein 8.4 g/dL (6.3-8.2)
[2025-03-23 13:25] LABS: NT Pro B Type Natriuretic Pept 272 pg/mL (19.9-100)
[2025-03-24 08:43] LABS: CRP 1.1 mg/dL (<1.0)
== END 2025-03-23 08:45 | disposition home or self-care (01) ==
LOC: CHSLAB 08:46
PROVIDERS: PCP Internal Medicine; Visit Provider Internal Medicine
DX: I50.9 Heart failure, unspecified (principal); R73.03 Prediabetes
CPT/HCPCS: 36415; 80053; 83036; 83735; 83880; 85025; 86140

== ENCOUNTER 2025-06-13 12:08 | Outpatient (CLI) | payer OTHER, SELFPAY ==
[2025-06-13 12:23] LABS: Hematocrit 38.6 % (40.0-54.0); Hemoglobin 12.4 g/dL (14.0-18.0); Immature Granulocyte Percent A 0.9 % (0.0-0.0); Lymphocytes Absolute Auto 3.20 K/mm3 (1.10-4.50); Mean Corpuscular HGB Conc 32.1 g/dL (32-36); Mean Corpuscular Hemoglobin 27.2 pg (27.0-31.0); Mean Corpuscular Volume 84.6 fL (78.0-102.0); Nucleated Red Blood Cells Absolute Auto 0.00 K/mm3 (0.00-0.00); Nucleated Red Blood Cells Perc 0.0 % (0-0.0); Platelet Count Result 340 K/mm3 (150-420); Red Blood Count 4.56 M/mm3 (4.70-6.10); White Blood Count 11.5 K/mm3 (4.8-10.8)
[2025-06-13 12:24] LABS: Add Urine Microscopic? NO; Appearance Urine Clear (Clear); Glucose Urine UA Negative (Negative); Leukocyte Esterase Ur Negative (Negative); Nitrate Urine Negative (Negative); Specific Grav Ur >= 1.030 (1.010-1.020)
[2025-06-13 13:14] LABS: Alanine Aminotransferase 30 U/L (6-50); Albumin Level 4.5 g/dL (3.5-5.1); Alkaline Phosphatase 86 U/L (38-126); Anion Gap 12 mmol/L (4-12); Aspartate Amino Transferase 35 U/L (17-59); Bilirubin,Total 0.8 mg/dL (0.2-1.3); Blood Urea Nitrogen 22 mg/dL (9-20); CRP 0.9 mg/dL (<1.0); Calcium 10.1 mg/dL (8.4-10.2); Carbon Dioxide 25 mmol/L (22-30); Chloride 102 mmol/L (98-107); Cholesterol 105 mg/dL (0-200); Estimated Glomerular Filt Rate > 60; Glucose 104 mg/dL (65-110); HDL Direct 35 mg/dL; Osmolality Calculated 291 mOsm/kg (285-295); Potassium 4.6 mmol/L (3.4-5.0); Sodium 139 mmol/L (137-145); Total Protein 10.2 g/dL (6.3-8.2); Triglycerides 114 mg/dL (<150)
[2025-06-13 13:20] LABS: NT Pro B Type Natriuretic Pept 111 pg/mL (19.9-100)
[2025-06-13 13:41] LABS: Prostate Specific Antigen 1.0 ng/mL (< OR = 4.0)
--- OUTSIDE RECORDS SUMMARY | 2025-06-13 14:03 | XMS_ITS | Clinical Summary ---
Author Organization [facility] Address [address] [place] [address] Care Team Providers Care Bond Writer Name Role Phone David Chance MD Primary Care Provider [phone] Laurie Washington NP Unavailable [phone] Kaci Del Rio MD Unavailable Vinny Bauman PA-C Unavailable [phone] Allergies No known active allergies Medications atorvastatin (LIPITOR) 20 MG tablet Take 1 tablet (20 mg total) by mouth nightly at bedtime. Active dilTIAZem CD (CARDIZEM CD) 240 MG 24 hr capsule Take 1 capsule (240 mg total) by mouth daily. 07/21/2024 Active spironolactone- hydroCHLOROthia zide (ALDACTAZIDE) 25-25 MG tablet Take 1 tablet by mouth daily. 10/26/2024 Active pantoprazole EC (PROTONIX) 40 MG tablet Take 1 tablet (40 mg total) by mouth daily. 11/06/2024 Active metoprolol succinate ER (TOPROL-XL) 100 MG 24 hr tablet Take 1 tablet (100 mg total) by mouth 2 (two) times daily. 11/10/2024 Active ASPIRIN EC ADULT LOW DOSE 81 MG tablet Take 1 tablet (81 mg total) by mouth daily. 08/12/2024 Active ELIQUIS 5 MG tablet Take 1 tablet (5 mg total) by mouth 2 (two) times daily. 11/17/2024 Active magnesium oxide (MAG-OX) 400 (240 Mg) MG tablet Take 1 tablet (400 mg total) by mouth daily. Active flecainide (TAMBOCOR) 100 MG tablet Take 1 tablet (100 mg total) by mouth 2 (two) times daily. 180 tablet 3 12/12/2024 Active fenofibrate micronized (LOFIBRA) 67 MG Cap capsule Take 1 capsule (67 mg total) by mouth daily. 12/05/2024 Active losartan (COZAAR) 50 MG tablet Take 0.5 tablets (25 mg total) by mouth 2 (two) times daily. Active tirzepatide (MOUNJARO) 5 MG/0.5ML injectionIndica tions:Diabetes Mellitus Inject 5 mg into the skin once a week. Indications: Diabetes Active Active Problems Problem Noted Date Diagnosed Date Bilateral pulmonary embolism 07/19/2024 Peripheral vascular disease 06/18/2023 Atrial fibrillation 05/10/2017 Myocardial infarction 05/10/2017 Type 2 diabetes mellitus without complication Hypercholesterolemia 04/07/2017 Essential hypertension 04/07/2017 Near syncope 06/05/2015 Obesity 06/05/2015 Sleep apnea, unspecified 06/05/2015 Encounters Date Type Department Care Team Description 05/11/2025 8:24 AM CDT - 05/11/2025 11:59 PM CDT Hospital Encounter [facility] Non Invasive Cardiology [facility] [address] [place] [address] Marcelo Tabor MD Discharge Disposition: Home or Self Care (Routine Discharge) 05/11/2025 Travel 05/04/2025 11:30 AM CDT Office Visit [facility] [address] [place] [address] Vinny Bauman, BLAKEC Atrial Fibrillation; Follow Up; Other (Chronic antiarrhythmic drug management with flecainide) 05/04/2025 Travel 05/04/[address] [facility] [address] [place] [address] Kaci Del Roi MD 04/26/[address] [facility] [address] [place] [address] Marcelo Tabor MD Schedule Test 04/25/2025 1:30 PM CDT - 04/25/2025 11:59 PM CDT Hospital Encounter [facility] [address] [facility] [place] [address] Marcelo Tabor MD Discharge Disposition: Home or Self Care (Routine Discharge) 04/25/2025 1:15 PM CDT Office Visit [facility] [address] [place] [address] Marcelo Tabor MD Heart Problem 04/25/2025 Results Follow-Up [facility] [address] [place] [address] Dianna Cheng MA PRO BNP ([facility]), TROPONIN, QUANT, USE STRESS ECHO W CON 04/25/2025 Travel 04/19/[address] [facility] [address] [place] [phone] Kaci Del Rio MD Concerns from Last 3 Months Family History Medical History Relation Comments No Known Problems Father No Known Problems Mother Relation Status Comments Father Mother Alive Social History Tobacco Use Types Packs/Day Years Used Date Smoking Tobacco: Former Cigarettes Q uit: 2020 Smokeless Tobacco: Never Tobacco Cessation:Counseling Given: Not Answered Alcohol Use Standard Drinks/Week Comments Not Currently 0 (1 standard drink = 0.6 oz pur e alcohol) [facility] Utilities Answer Date Recorded In the past 12 months has e [employer], gas, oil, or water [employer] threatened to shut off services in your [...] any time in the past 12 m [facility], were you homeless or living in a assisted (including now)? No 07/19/2024 Sex and Gender Information Value Date Recorded Sex Assigned at Male 04/25/2025 1:27 PM CDT Legal Sex Male 9:04 PM CDT Gender Identity Not on file Sexual Orientation Not on file Last Filed Vital Signs Vital Sign Reading Time Taken Comments Blood Pressure 114/60 05/04/2025 10:49 AM CDT Pulse 71 05/04/2025 10:49 AM CDT Temperature 35.9 C (96.6 F) 02/20/2025 8:40 AM CDT Respiratory Rate 18 05/04/2025 10:49 AM CDT Oxygen Saturation 95% 05/04/2025 10:49 AM CDT Inhaled Oxygen Concentration - - Weight 153.8 kg (339 lb) 05/11/2025 8:32 AM CDT Height 188 cm (6' 2) 05/11/2025 8:32 AM CDT Body Mass Index 43.53 05/11/2025 8:32 AM CDT Plan of Treatment Upcoming Encounters Date Type Department Care Team (Late st Contact Info) Description 07/25/2025 10:30 AM [employer] Office Visit [facility] [address] [place] [phone] Marcelo Tabor MD [address] [facility], [address] [id number] 09/05/2025 9:15 AM [employer] Office Visit [facility] [address] [place] [phone] Marcelo Tabor MD [address] [facility] [address] [place] [address] Health Maintenance Due Date Last Done Comments ASCVD LDL 1970 Colorectal Cancer Screening Colonoscopy (10 Years) 1969 Kidney Health Evaluation 1970 Hemoglobin A1C 1969 Lipid Panel 1969 Annual Physical 1972 Diabetes: Retinopathy Eye Exam 12/25/1987 Hepatitis C 12/25/1987 Hepatitis B Vaccines (1 of 3 - 19+ 3-dose series) 1988 Pneumococcal Vaccine: 50+ Years (1 of 2 - PCV) 1988 COVID-19 Vaccine ( season) 2025 06/12/2023, 09/04/2021, 10/23/2020, Additional history exists Influenza Adult (#1) 2025 05/27/2023, 05/23/2020, 06/23/2017, Additional history exists DTaP, Tdap and Td Vaccines (2 - Td or Tdap) 04/29/2032 04/29/2022 Zoster Vaccines Completed 06/17/2023, 09/11/2022 Hepatitis A Vaccines Aged Out No long er eligible based on patient's age to complete this topic Meningococcal B Vaccine Aged Out No l onger eligible based on patient's age to complete this topic Meningococcal Vaccine Aged Out No ru tayler eligible based on patient's age to complete this topic RSV Immunizations Under 20 Months Aged Out No longer eligible based on patient's age to complete this topic Procedures Procedure Name Priority Date/Time Associated Diagnosis Comments USE STRESS ECHO W CON Routine 05/11/2025 9:38 AM CDT Dyspnea on exertion CARDIOLOGY STRESS TEST ONLY, EXERCISE Routine 05/11/2025 8:33 AM CDT Dyspnea on exertion SOB (shortness of breath) ELECTROCARDIOGRAM (NON MIDMARK ACQUIRED) Routine 05/04/2025 10:54 AM CDT Essential hypertension Chronic atrial fibrillation (CMS/HCC HHS/HCC) Hypercholesterolemi a Persistent atrial fibrillation (CMS/HCC HHS/HCC) Bilateral pulmonary embolism (CMS/HCC HHS/HCC) Dyspnea on exertion TROPONIN, QUANT Routine 04/25/2025 1:42 PM CDT Dyspnea on exertion PRO-BRAIN NATRIURETIC PEPTIDE Routine 04/25/2025 1:42 PM CDT Dyspnea on exertion from Last 3 Months Results * USE STRESS ECHO W CON (05/11/2025 9:38 AM CDT) Anatomical Region Laterality Modality NA Echocardiogram, Cardiac Electrophysiology 05/11/2025 8:31 AM CDT Narrative 05/15/2025 7:24 AM CDT Stress Echocardiography Report Pat.Name: GAIL TREVINO Pat.ID: [id number] St.Date: 05/11/2025 Refer.: [id number] LATASHA Curtis EWDPROV EWDPROV Exam Time: 8:31:00 AM Study Type:STRESS ECHO CONT DOP COLOR Height: 188 cm Weight: 154 kg BSA: 2.72 m2 Age: 4 1970,54Y Sex: M Sonogrphr: Claude Johnson [facility] Pat. Stat.:Outpatient CPT - 4: [id number] Reason for Study:Dyspnea/shortness of breath Procedures: 2D, Doppler, Color Flow, Exercise Stress Echo, Definity was used to enhance endocardial definition. Intraveneous saline contrast was used to help determine presence of intracardiac shunting. ++++++++++++++++++++++++++++++++++++ SUMMARY: ++++++++++++++++++++++++++++++++++++ 1. Patient performed Mitch protocol for 03:17 minutes, achieving 5.0 METs, and 55% of maximum predicted heart rate for age. No angina, arrhythmias or electrocardiographic evidence of ischemia. Adequate BP response to exercise. Poor exercise capacity. 2. Resting echo: LV size, wall thickness and global systolic function are normal. LVEF 55-60%. Normal segmental wall motion. 3. Stress echo: LV size decreased, systolic function increased, and all segments augmented normally. 4. Patient did not achieve an 85% of predicted heart rate for age. This study is suboptimal for ruling out ischemia. ++++++++++++++++++++++++++++++++++++ FINDINGS: ++++++++++++++++++++++++++++++++++++ LV: The left ventricular size is normal. The left ventricular systolic function is normal. Estimated left ventricular ejection fraction is 55-60%. Mild concentric left ventricular hypertrophy. WM: Wall motion appears normal in all segments. RV: The right ventricle not adequately visualized in all views. IAS: Atrial septum is poorly visualized. The agitated saline injection showed no clear evidence of shunting into the left atrium, consistent with no patent foramen ovale. ABDIAZIZ: No evidence of pericardial effusion. Prominent pericardial fat pad visualized. AO: Aortic root is not dilated. AV: The aortic valve is trileaflet. There is no aortic stenosis. There is no evidence of aortic regurgitation. MV: The mitral valve is structurally normal. There is trace mitral regurgitation. PV: The pulmonic valve is normal There is trace pulmonic regurgitation TV: The tricuspid valve appears structurally normal. There is trace tricuspid regurgitation. ++++++++++++++++++++++++++++++++++++ STRESS: ++++++++++++++++++++++++++++++++++++ Baseline Vital Signs: Baseline ECG: LAD, IVCD. Baseline Rhythm: Normal sinus rhythm, First degree AV block HR: 75 bmp Rest BP: 110/62 Exercise Stress Echo Protocol: Mitch Duration: 03:17 min:sec Max. Workload (METS): 5 Carney Score: 3 Group: moderate risk Stress Test Results: Max HR: 91 bmp Target HR: 165 bmp % Target: 55 % Max BP: 122/74 Max RPP: [address]: 0 mm Symptoms and Complications: Arrhythmias: PVCs Reason for Stopping Test: Patient request, Shortness of breath Stress Induced Symptoms: Fatigue, Shortness of breath ECG Findings: No ischemic S-T changes occurred with stress ++++++++++++++++++++++++++++++++++++ MEASUREMENTS: ++++++++++++++++++++++++++++++++++++ 2D Left Ventricle LVIDd 4.82 cm (3.6-5.2) LVPW LVPWd 1.2 cm Ventricular Septum IVSd 1.15 cm Aorta Ao Rtd 3.11 cm Ao Asc 2.82 cm (2.1-3.4) Ratios IVS DOPPLER TV Regurg Flow TV pkPG 51 mmHg TV pkVel 356 cm/s (30-70)* LV Mass 2D Value 214 g LV Mass [id number] Value 78.7 g/m2 <Electronic Signature> 05/15/2025 07:24 AM Marcelo Tabor M.D. Procedure Note Marcelo Tabor MD - 05/15/2025 Stress Echocardiography Report Pat.Name: GAIL TREVINO Pat.ID: [id number] .Date: 05/11/2025 : [id number] LATASHA Curtis EWDPROV EWDPROV Exam Time: 8:31:00 AM Study Type:STRESS ECHO CONT DOP COLOR Height: 188 cm Weight: 154 kg BSA: 2.72 m2 Age: 4 1970,54Y Sex: M Sonogrphr: Claude Johnson [facility] Pat. Stat.:Outpatient CPT - 4: [id number] Reason for Study:Dyspnea/shortness of breath Procedures: 2D, Doppler, Color Flow, Exercise Stress Echo, Definity was used to enhance endocardial definition. Intraveneous saline contrast was used to help determine presence of intracardiac shunting. ++++++++++++++++++++++++++++++++++++ SUMMARY: ++++++++++++++++++++++++++++++++++++ 1. Patient performed Mitch protocol for 03:17 minutes, achieving 5.0 METs, and 55% of maximum predicted heart rate for age. No angina, arrhythmias or electrocardiographic evidence of ischemia. Adequate BP response to exercise. Poor exercise capacity. 2. Resting echo: LV size, wall thickness and global systolic function are normal. LVEF 55-60%. Normal segmental wall motion. 3. Stress echo: LV size decreased, systolic function increased, and all segments augmented normally. 4. Patient did not achieve an 85% of predicted heart rate for age. This study is suboptimal for ruling out ischemia. ++++++++++++++++++++++++++++++++++++ FINDINGS: ++++++++++++++++++++++++++++++++++++ LV: The left ventricular size is normal. The left ventricular systolic function is normal. Estimated left ventricular ejection fraction is 55-60%. Mild concentric left ventricular hypertrophy. WM: Wall motion appears normal in all segments. RV: The right ventricle not adequately visualized in all views. IAS: Atrial septum is poorly visualized. The agitated saline injection showed no clear evidence of shunting into the left atrium, consistent with no patent foramen ovale. ABDIAZIZ: No evidence of pericardial effusion. Prominent pericardial fat pad visualized. AO: Aortic root is not dilated. AV: The aortic valve is trileaflet. There is no aortic stenosis. There is no evidence of aortic regurgitation. MV: The mitral valve is structurally normal. There is trace mitral regurgitation. PV: The pulmonic valve is normal There is trace pulmonic regurgitation TV: The tricuspid valve appears structurally normal. There is trace tricuspid regurgitation. ++++++++++++++++++++++++++++++++++++ STRESS: ++++++++++++++++++++++++++++++++++++ Baseline Vital Signs: Baseline ECG: LAD, IVCD. Baseline Rhythm: Normal sinus rhythm, First degree AV block HR: 75 bmp Rest BP: 110/62 Exercise Stress Echo Protocol: Mitch Duration: 03:17 min:sec Max. Workload (METS): 5 Carney Score: 3 Group: moderate risk Stress Test Results: Max HR: 91 bmp Target HR: 165 bmp % Target: 55 % Max BP: 122/74 Max RPP: [address] Max ST: 0 mm Symptoms and Complications: Arrhythmias: PVCs Reason for Stopping Test: Patient request, Shortness of breath Stress Induced Symptoms: Fatigue, Shortness of breath ECG Findings: No ischemic S-T changes occurred with stress ++++++++++++++++++++++++++++++++++++ MEASUREMENTS: ++++++++++++++++++++++++++++++++++++ 2D Left Ventricle LVIDd 4.82 cm (3.6-5.2) LVPW LVPWd 1.2 cm Ventricular Septum IVSd 1.15 cm Aorta Ao Rtd 3.11 cm Ao Asc 2.82 cm (2.1-3.4) Ratios IVS DOPPLER TV Regurg Flow TV pkPG 51 mmHg TV pkVel 356 cm/s (30-70)* LV Mass 2D Value 214 g LV Mass [id number] Value 78.7 g/m2 <Electronic Signature> 05/15/2025 07:24 AM Marcelo Tabor M.D. 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1970 Requested By: KACI DEL RIO Order Number: [id number] Reading MD: Kaci Del Rio Measurements Intervals [place] Rate: 64 P: 162 [place]: 317 QRS: -43 QRSD: 132 T: -3 QT: 431 QTc: 445 Interpretive Statements SINUS RHYTHM WITH FIRST DEGREE AV BLOCK LEFT AXIS DEVIATION INTRAVENTRICULAR CONDUCTION DELAY Procedure Note Kaci Del Rio MD - 05/05/2025 [facility] [address] [place] [address] Test Date: 2025-05-04 Pat Name: GAIL TREVINO Department: 105 Room: 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1970 Requested By: KACI DELR IO Order Number: [id number] Reading JONNY Del Rio Measurements Intervals [place] Rate: 64 P: 162 OH: 317 QRS: -43 QRSD: 132 T: -3 QT: 431 QTc: 445 Interpretive Statements SINUS RHYTHM WITH FIRST DEGREE AV BLOCK LEFT AXIS DEVIATION INTRAVENTRICULAR CONDUCTION DELAY us Kaci Del Rio MD PROCEDURES-ORDERABLE NO CHARGE F inal Result [facility] * (ABNORMAL) PRO BNP ([facility]) (04/25/2025 1:42 PM CDT) PRO-B TYPE NATRIURETIC PEPTIDE 218(H) <125 PG/ML 04/25/2025 2:10 PM CDT [facility] Comment: CUT POINTS ESTABLISHED BY [employer] ON NT PROBNP (ICON) STUDY (2006). AGE INDEPENDENT: <300 PG/ML HAS A 99% NEGATIVE PREDICTIVE VALUE FOR EXCLUDING ACUTE CHF <50 YEARS: >450 PG/ML IS CONSISTENT WITH ACUTE CHF 50-75 YEARS: >900 PG/ML IS CONSISTENT WITH ACUTE CHF >75 YEARS: >1800 PG/ML IS CONSISTENT WITH ACUTE CHF IN PATIENTS WITH RENAL INSUFFICIENCY (GFR <60), >1200 PG/ML YIELDS A DIAGNOSTIC SENSITIVITY AND SPECIFICITY OF 89% AND 72% FOR ACUTE CHF. 04/25/2025 1:42 PM CDT us Marcelo Tabor MD LABORATORY Final Result [facility] [address] [place] [address], [place] [phone] * TROPONIN, QUANT (04/25/2025 1:42 PM CDT) TROPONIN I HIGH SENSITIVITY 10 0 - 76 ng/L 04/25/2025 2:10 PM CDT [facility] 04/25/2025 1:42 PM CDT us Marcelo Tabor MD LABORATORY Final Result Performing Organization Address City/[facility]/ZIP Co de Phone Number [facility] [address] [place] [address], [place] [phone] from Last 3 [place] [id number] [employer] Advance Directives * Full Code (Latest Code Status on File) Date Activated Date Inactivated Comments 07/19/2024 5:15 PM 07/21/2024 8:28 PM Care Teams Bond Writer Relationship Specialty Start Date End Date David Chance MD [address] [place] [address] PCP - General INTERNAL MEDICINE 07/19/24 Laurie Washington NP [address] [place] [address] [address] [place] [address] Nurse Practitioner Nurse Practitioner Acute Care 11/22/24 Kaci Del Rio MD [address] [place] [phone] Consulting Physician CLINICAL CARDIAC ELECTROPHYSIOLOGY 01/27/25 Vinny Bauman PAMulugetaC [address] [place] [phone] PHYSICIAN WELDING TESTER 01/27/25
--- OUTSIDE RECORDS SUMMARY | 2025-06-13 14:03 | XMS_ITS | Encounter Summary ---
Author Organization [facility] Health Address [address] [facility] [place] [address] Care Team Providers Care Roller Coaster Operator Name Role Phone David Chance MD Primary Care Provider [phone] Encounter Details Date Type Department Care Team (Late st Contact Info) Description 03/02/2019 Lab Requisition [facility] Care DermPath Lab [address] [facility], [place] [address] Loretta Machado DO [address] [facility] 3 [place] [address] Social History Tobacco Use Types Packs/Day Years [...] AM CDT) Case Report Dermatopathology Report Case: [id number] Authorizing Provider: Loretta Machado DO Collected: 03/01/2019 [...] characteristic determined by the Dermatopathology Laboratory at [facility], directed by Dr. Allison Rivera. These tests need not be, and therefore are not, approved by the [place] Food and Drug Administration. The tests are used for clinical purposes. Billing Codes Specimen Charges Stain Charges 34442 1 9 4:08 PM CDT DERMATOPATHOLOGY LABORATORY Embedded Images 9 4:08 PM CDT DERMATOPATHOLOGY LABORATORY Pathology/Cytolog y TISSUE SPECIMEN FROM SKIN / Unknown 03/01/2019 03/02/2019 6:59 AM CDT us Loretta Machado DO LAB - PATHOLOGY/CYTOLOGY ORDERABLES Final Result DERMATOPATHOLOGY LABORATORY [facility] - Department of Dermatology [address] [place] [address], 5th Floor Lab [address] [place] [phone] [place] [address] documented in this encounter Visit Diagnoses Not on filedocumented in this encounter Care Teams Roller Coaster Operator Relationship Specialty Start Date End Date David Chance MD [address] [place] [address] PCP - General 12/23/22 documented as of this encounter
--- OUTSIDE RECORDS SUMMARY | 2025-06-13 14:03 | XMS_ITS | Encounter Summary ---
Author Organization [facility] Health Address [address] [facility] [place] [address] Care Team Providers Care Extraction Operator Name Role Phone David Chance MD Primary Care Provider [phone] Encounter Details Date Type Department Care Team (Late st Contact Info) Description 04/05/2019 Lab Requisition [facility] DermPath Lab [address] [facility], [place] [address] Loretta Machado DO [address] [facility] 3 [place] [address] Social History Tobacco Use Types Packs/Day Years [...] AM CDT) Case Report Dermatopathology Report Case: [id number] Authorizing Provider: Loretta Machado DO Collected: 04/04/2019 12:00 AM Ordering Location: [facility] DermPath Lab Received: 04/05/2019 12:08 [...] The specimen consists of a shave measuring 2w1r7sc. Jar 0. Specimen B: Received is one formalin filled container labeled with the patient's name and designated left forearm. The specimen consists of a shave measuring 8w5e3wb. Jar 0. 11:53 AM CDT DERMATOPATHOLOGY LABORATORY [...] determined by the Dermatopathology Laboratory at [facility], directed by Dr. Allison Rivera. These tests need not be, and therefore are not, approved by the [place] Food and Drug Administration. The tests are used for clinical purposes. Billing Codes Specimen Charges Stain Charges 10236 15587 1 1 11:53 AM CDT DERMATOPATHOLOGY LABORATORY Embedded Images 11:53 AM CDT DERMATOPATHOLOGY LABORATORY Pathology/Cytology TISSUE SPECIMEN FROM SKIN / Unknown 04/04/2019 04/05/2019 12:08 PM CDT Miscellaneous samples (specimen) TISSUE SPECIMEN FROM SKIN / Unknown 04/04/2019 04/05/2019 12:08 PM CDT us Loretta Machado DO LAB - PATHOLOGY/CYTOLOGY ORDERABLES Final Result DERMATOPATHOLOGY LABORATORY [facility] - Department of Dermatology [address] [place] [address] 5th Floor Lab [address] [phone] documented in this encounter Visit Diagnoses Not on filedocumented in this encounter Care Teams Extraction Operator Relationship Specialty Start Date End Date David Chance MD [address] [place], [place] [id number] PCP - General 12/23/22 documented as of this encounter
--- OUTSIDE RECORDS SUMMARY | 2025-06-13 14:03 | XMS_ITS | Encounter Summary ---
Author Organization [facility] Address [address] [place] [address] Care Team Providers Care Tobacco Warehouse Manager Name Role Phone Michael Oconnor MD Unavailable [phone] David Chance MD Primary Care Provider [phone] Laurie Washington NP Unavailable [phone] Kaci Nielsen MD Unavailable Vinny BaumanC Unavailable [phone] Encounter Details Date Type Department Care Team (Late st Contact Info) Description 07/25/2024 Hospital Follow-up Call [facility] [address] [place] [address] Dionna Sales RN Social History Tobacco Use Types Packs/Day Years Used Date Smoking Tobacco: Former Cigarettes Q uit: 2020 Smokeless Tobacco: Never [facility] Utilities Answer Date Recorded In the past 12 months has e [employer], gas, oil, or water [employer] threatened to shut off services in your [...] any time in the past 12 m [facility], were you homeless or living in a fdc (including now)? No 07/19/2024 Sex and Gender [...] st Contact Info) Description 07/25/2025 10:30 AM [employer] [facility] Office Visit [facility] [address] [place] [address] Marcelo Tabor MD [address] [place] [id number] 09/05/2025 9:15 AM [employer] [facility] Office Visit [facility] [address] [place] [address] Marcelo Tabor MD [address] [place] [id number] documented as of this encounter Visit Diagnoses Not on filedocumented in this encounter Care Teams Tobacco Warehouse Manager Relationship Specialty Start Date End Date David Chance MD [address] [place] [address] PCP - General INTERNAL MEDICINE 07/19/24 Michael Oconnor MD [address] [facility] [address] [phone] Consulting Physician CARDIOVASCULAR DISEASE 07/20/24 Laurie Washington NP [address] [facility] [address] [place], [place] [address] Nurse Practitioner Nurse Practitioner Acute Care 11/22/24 Kaci Nielsen MD [address] [place] [address] Consulting Physician CLINICAL CARDIAC ELECTROPHYSIOLOGY 01/27/25 Vinny Bauman, [facility]LAK[facility] [address] [place] [address] PHYSICIAN SUPERVISOR CYTOGENETIC LABORATORY 01/27/25 documented as of this encounter
--- OUTSIDE RECORDS SUMMARY | 2025-06-13 14:03 | XMS_ITS | Clinical Summary ---
Author Organization [facility] Address [address] [place] [address] Care Team Providers Care Plant Pathologist Name Role Phone David Chance MD Primary Care Provider [phone] Source Comments [facility],non-owned Affiliates and Associated Physician Practices is amultiple site organization consisting of ambulatory clinics and hospital sitesin [place], [place], [place] and [place]. This disclosure is being madepursuant to the Care Everywhere program and may not contain all information available regarding this patient. Last updated 18.[facility] Social History Tobacco Use Types Packs/Day Years [...] 12/25/2019 ZOSTER VACCINE (1 of 2) 12/25/2019 DEPRESSION SCREENING 08/17/2024 COVID-19 VACCINE (1 - 2023-2 5 season) 2025 INFLUENZA VACCINE (#1) 2025 HIB VACCINE Aged [...] age to complete this topic Care Teams Plant Pathologist Relationship Specialty Start Date End Date David Chance MD [address] [place] [address] PCP - General 12/23/22
== END 2025-06-13 12:09 | disposition home or self-care (01) ==
PROVIDERS: PCP Internal Medicine; Visit Provider Internal Medicine
DX: E11.9 Type 2 diabetes mellitus without complications (principal); I50.9 Heart failure, unspecified; M13.0 Polyarthritis, unspecified
CPT/HCPCS: 36415; 80053; 80061; 81003; 83880; 84153; 85025; 86140; G0103